=== PATIENT | female | born 1940 | race Caucasian/White ===

== ENCOUNTER 2019-11-15 14:24 | Outpatient (CLI) | payer MEDICARE, SELFPAY ==
--- NOTE | ~2019-11-15 | XR_ITS ---
EXAMINATION: XR knee LT 2V DATE: 11/15/2019 15:10 INDICATION: Left knee pain. TECHNIQUE: 2 views of left knee were obtained. COMPARISON: None. FINDINGS: Bone alignment is normal. No fracture. There is moderate osteoarthritis of medial and méndez lofemoral compartments and mild osteoarthritis of lateral compartment. No knee joint effusion. IMPRESSION: 1. Moderate left knee osteoarthritis. Reviewed, dictated and finalized at location A.
--- NOTE | ~2019-11-15 | XR_ITS ---
EXAMINATION: XR lumbar spine 2-3V DATE: 11/15/2019 15:10 INDICATION: Left hip pain TECHNIQUE: Anteroposterior and lateral views of the lumbar spine, and cone-down lateral view of the l umbosacral junction were obtained. COMPARISON: CT abdomen and pelvis 02/16/2014 FINDINGS: Alignment is normal. Vertebral body heights are normal. Moderate to severe disc height loss at L3-L4 and T9-T10. Moderate disc height loss at L2-L3 and L4-L5. Mild disc height loss at T10-T11 through T1 2-L1 and at L5-S1. Moderate lower lumbar facet osteoarthritis. Sacral arches are intact. Mild left an d moderate right sacroiliac osteoarthritis. Moderate left hip osteoarthritis. Gallstone in the right upper quadrant. IMPRESSION: 1. Moderate degenerative skeletal changes in the lumbar spine, left hip and right sacroiliac joint. 2. Cholelithiasis. Reviewed, dictated and finalized at location A. IMPRESSION: 1. Moderate degenerative skeletal changes in the lumbar spine, left hip and rig ht sacroiliac joint. 2. Cholelithiasis.
--- NOTE | ~2019-11-15 | XR_ITS ---
EXAMINATION: XR hip LT 2V w AP pelvis DATE: 11/15/2019 15:10 INDICATION: Left hip pain TECHNIQUE: Anteroposterior view of the pelvis and anteroposterior, frog leg and cross-table lateral v iews of the left hip were obtained. COMPARISON: CT dated 02/16/2014 and radiographs dated 12/06/2013 FINDINGS: On the frontal image the left hip there is a sagittally oriented lucency projecting across the base o f a marginal osteophyte along the lateral rim of the left acetabulum suspicious for an age-indetermin ate minimally displaced fracture. Interval progression of moderate left hip osteoarthritis with axial predominant nonuniform joint space narrowing and with marginal osteophytes about the femoral head an d acetabulum. Mild right hip osteoarthritis. Moderate lower lumbar spondylosis. IMPRESSION: 1. Suggestion of an age-indeterminate minimally displaced fracture at the junction of the lateral rim of the left acetabulum and prominent marginal osteophytes related to moderate left hip osteoarthriti s. Reviewed, dictated and finalized at location A. IMPRESSION: 1. Suggestion of an age-indeterminate minimally displaced fracture at the junct ion of the lateral rim of the left acetabulum and prominent marginal osteophyte s related to moderate left hip osteoarthritis.
== END 2019-11-15 14:25 | disposition home or self-care (01) ==
LOC: ANHIMG 14:37
PROVIDERS: PCP Family Medicine; Visit Provider Physician Assistant
DX: M25.552 Pain in left hip (principal); M54.5 Low back pain; M25.562 Pain in left knee; K80.20 Calculus of gallbladder without cholecystitis without obstruction; M17.12 Unilateral primary osteoarthritis, left knee
CPT/HCPCS: 72100; 73502; 73560

== ENCOUNTER 2020-02-01 14:02 | Outpatient (CLI) | payer MEDICARE, SELFPAY ==
--- NOTE | 2020-02-01 15:02 | ECG_ITS ---
Measurements Intervals [place] Rate: 62 P: -14 GA: 138 QRS: -26 QRSD: 118 T: 108 QT: 454 QTc: 462 Interpretive Statements SINUS OR ECTOPIC ATRIAL RHYTHM INTRAVENTRICULAR CONDUCTION DELAY LEFT VENTRICULAR HYPERTROPHY AND ST-T CHANGE BASELINE ARTIFACT- I, II, III, AVR, AVL, AVF BORDERLINE ECG Electronically Signed On 02-01-2020 15:17:54 CDT by Jaun Champion D.O.
[2020-02-01 15:29] LABS: Basophils Percent Auto 0.2 % (0.2-1.2); Eosinophils Absolute Auto 0.3 K/mm3 (0-0.3); Eosinophils Percent Auto 2.4 % (0-4.4); Hematocrit 39.1 % (37.0-47.0); Hemoglobin 14.2 g/dL (12.0-15.0); Immature Granulocyte Absolute 0.08 K/mm3 (0.00-0.031); Immature Granulocyte Percent A 0.7 % (0-0.5); Lymphocytes Absolute Auto 2.49 K/mm3 (0.9-3.2); Lymphocytes Percent Auto 21.9 % (18.3-44.2); Mean Corpuscular HGB Conc 36.3 g/dl (32-36); Mean Corpuscular Hemoglobin 31.1 pg (26-34); Mean Corpuscular Volume 85.6 fl (80-100); Mean Platelet Volume 9.7 fl (7.4-10.4); Monocytes Absolute Auto 1.1 K/mm3 (0.1-0.6); Monocytes Percent Auto 9.7 % (2.6-8.5); Neutrophils Absolute Auto 7.4 K/mm3 (1.3-6.7); Neutrophils Percent Auto 65.1 % (45.5-73.1); Platelet Count Result 321 k/mm3 (150-375); Red Blood Count 4.57 M/mm3 (4.2-5.4); Red Cell Distribution Width 12.2 % (11.5-14.5); White Blood Count 11.4 K/mm3 (4.5-10.0)
[2020-02-01 15:58] LABS: Anion Gap 11 mmol/L (8-16); Blood Urea Nitrogen 17 mg/dL (7-17); Calcium 9.4 mg/dL (8.4-10.2); Carbon Dioxide 32 mmol/L (22-30); Chloride 82 mmol/L (98-107); Estimated Glomerular Filt Rate > 60; Glucose 148 mg/dL (65-105); Potassium 3.5 mmol/L (3.4-5.0); Sodium 125 mmol/L (137-145)
== END 2020-02-01 14:03 | disposition home or self-care (01) ==
LOC: ANHSURGERY 14:04
PROVIDERS: Anesthesiology; PCP Family Medicine; Visit Provider Orthopaedic Surgery
DX: Z01.818 Encounter for other preprocedural examination (principal); M25.552 Pain in left hip; E11.9 Type 2 diabetes mellitus without complications; I10 Essential (primary) hypertension
CPT/HCPCS: 36415; 80048; 85025; 86850; 86900; 86901; 93005

== ENCOUNTER 2020-02-03 14:18 | Outpatient (CLI) | payer MEDICARE, SELFPAY ==
[2020-02-03 15:20] LABS: White Blood Count 14.1 K/mm3 (4.5-10.0)
[2020-02-03 15:34] LABS: Albumin Level 4.5 g/dL (3.5-5.1); Sodium 124 mmol/L (137-145)
[2020-02-03 15:38] LABS: Hemoglobin A1C 6.4 % (<5.7)
[2020-02-03 15:48] LABS: Urine Cotinine NEGATIVE
== END 2020-02-03 14:19 | disposition home or self-care (01) ==
LOC: ANHSURGERY 14:20
PROVIDERS: Anesthesiology; PCP Family Medicine; Visit Provider Orthopaedic Surgery
DX: Z01.818 Encounter for other preprocedural examination (principal); E11.9 Type 2 diabetes mellitus without complications; M25.552 Pain in left hip; D72.829 Elevated white blood cell count, unspecified; E87.1 Hypo-osmolality and hyponatremia
CPT/HCPCS: 36415; 80307; 82040; 83036; 84295; 85048

== ENCOUNTER 2020-02-17 11:34 | Outpatient (CLI) | payer MEDICARE, SELFPAY ==
[2020-02-17 11:54] LABS: Basophils Percent Auto 0.4 % (0.2-1.2); Eosinophils Absolute Auto 0.2 K/mm3 (0-0.3); Eosinophils Percent Auto 2.1 % (0-4.4); Hematocrit 41.9 % (37.0-47.0); Hemoglobin 14.4 g/dL (12.0-15.0); Immature Granulocyte Absolute 0.03 K/mm3 (0.00-0.031); Immature Granulocyte Percent A 0.4 % (0-0.5); Lymphocytes Absolute Auto 1.84 K/mm3 (0.9-3.2); Lymphocytes Percent Auto 21.9 % (18.3-44.2); Mean Corpuscular HGB Conc 34.4 g/dl (32-36); Mean Corpuscular Hemoglobin 31.2 pg (26-34); Mean Corpuscular Volume 90.9 fl (80-100); Mean Platelet Volume 9.6 fl (7.4-10.4); Monocytes Absolute Auto 0.7 K/mm3 (0.1-0.6); Monocytes Percent Auto 8.8 % (2.6-8.5); Neutrophils Absolute Auto 5.6 K/mm3 (1.3-6.7); Neutrophils Percent Auto 66.4 % (45.5-73.1); Platelet Count Result 323 k/mm3 (150-375); Red Blood Count 4.61 M/mm3 (4.2-5.4); Red Cell Distribution Width 12.5 % (11.5-14.5); White Blood Count 8.4 K/mm3 (4.5-10.0)
[2020-02-17 12:06] LABS: Anion Gap 7 mmol/L (8-16); Blood Urea Nitrogen 14 mg/dL (7-17); Calcium 9.7 mg/dL (8.4-10.2); Carbon Dioxide 25 mmol/L (22-30); Chloride 101 mmol/L (98-107); Estimated Glomerular Filt Rate > 60; Glucose 135 mg/dL (65-105); Potassium 5.1 mmol/L (3.4-5.0); Sodium 133 mmol/L (137-145)
== END 2020-02-17 11:35 | disposition home or self-care (01) ==
PROVIDERS: PCP Family Medicine; Visit Provider Physician Assistant
DX: D72.829 Elevated white blood cell count, unspecified (principal); E87.1 Hypo-osmolality and hyponatremia
CPT/HCPCS: 36415; 80048; 85025

== ENCOUNTER 2020-08-21 11:42 | Outpatient (CLI) | payer MEDICARE, SELFPAY ==
[2020-08-21 13:30] LABS: Basophils Percent Auto 0.4 % (0.2-1.2); Eosinophils Absolute Auto 0.4 K/mm3 (0-0.3); Eosinophils Percent Auto 3.8 % (0-4.4); Hematocrit 43.3 % (37.0-47.0); Hemoglobin 14.7 g/dL (12.0-15.0); Immature Granulocyte Absolute 0.04 K/mm3 (0.00-0.031); Immature Granulocyte Percent A 0.4 % (0-0.5); Lymphocytes Absolute Auto 2.17 K/mm3 (0.9-3.2); Lymphocytes Percent Auto 23.8 % (18.3-44.2); Mean Corpuscular HGB Conc 33.9 g/dl (32-36); Mean Corpuscular Hemoglobin 30.5 pg (26-34); Mean Corpuscular Volume 89.8 fl (80-100); Mean Platelet Volume 9.6 fl (7.4-10.4); Monocytes Absolute Auto 0.8 K/mm3 (0.1-0.6); Monocytes Percent Auto 8.7 % (2.6-8.5); Neutrophils Absolute Auto 5.7 K/mm3 (1.3-6.7); Neutrophils Percent Auto 62.9 % (45.5-73.1); Platelet Count Result 325 k/mm3 (150-375); Red Blood Count 4.82 M/mm3 (4.2-5.4); White Blood Count 9.1 K/mm3 (4.5-10.0)
[2020-08-21 13:36] LABS: Urine Cotinine NEGATIVE
[2020-08-21 13:39] LABS: Albumin Level 4.5 g/dL (3.5-5.1)
[2020-08-21 13:42] LABS: Anion Gap 6 mmol/L (8-16); Blood Urea Nitrogen 17 mg/dL (7-17); Calcium 9.7 mg/dL (8.4-10.2); Carbon Dioxide 28 mmol/L (22-30); Chloride 101 mmol/L (98-107); Estimated Glomerular Filt Rate > 60; Glucose 141 mg/dL (65-105); Hemoglobin A1C 6.1 % (<5.7); Potassium 5.2 mmol/L (3.4-5.0); Sodium 135 mmol/L (137-145)
== END 2020-08-21 11:43 | disposition home or self-care (01) ==
LOC: ANHSURGERY 11:44
PROVIDERS: Anesthesiology; PCP Family Medicine; Visit Provider Orthopaedic Surgery
DX: Z01.818 Encounter for other preprocedural examination (principal); M16.12 Unilateral primary osteoarthritis, left hip; I11.9 Hypertensive heart disease without heart failure
CPT/HCPCS: 80048; 80307; 82040; 83036; 85025; 86850; 86900; 86901

== ENCOUNTER → 2020-08-26 02:09 | Outpatient (CLI) | payer MEDICARE, SELFPAY ==
[2020-08-26 20:23] LABS: SARS-CoV-2 RNA PCR Negative
== END ==
PROVIDERS: PCP Family Medicine; Visit Provider Orthopaedic Surgery
DX: Z01.812 Encounter for preprocedural laboratory examination (principal); Z20.822 Contact with and (suspected) exposure to COVID-19
CPT/HCPCS: C9803; U0003; U0005

== ENCOUNTER 2020-08-31 14:43 | Observation (INO) | payer MEDICARE, SELFPAY ==
[2020-02-01 14:11] VITALS: BP 165/68; PULSE 67; RESP 18; TEMP 36.4; O2SAT 98; BMI 37.8
[2020-08-21 12:04] VITALS: BMI 37.3
[2020-08-21 13:03] VITALS: BP 171/59; PULSE 55; RESP 16; TEMP 36.7; O2SAT 100
--- NOTE | 2020-08-28 14:34 | PM.IMHP ---
H&P: HPI History of Present Illness Date/Time: 08/28/20 14:34 the patient is a 79-year-old female who sees Dr. Suggs regarding her left hip. The patient has a chronic ongoing history of pain localized to the groin this is due to primary osteoarthritis. She has pain with ambulation started pain wrist pain and night pain. Patient cannot stand or walk for long periods notes limitation of motion and pain with motion with her left hip. She has pain in the groin that radiates into her thigh worse with activities somewhat relieved by rest. 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 X-rays this time show advanced primary osteoarthritis in the left hip joint. The patient has discussed further treatment options in detail with Dr. Suggs she would now like to proceed with a left total hip arthroplasty. Chief Complaint: Advanced primary osteoarthritis left hip with left hip pain Review of Systems Review of Systems: All systems reviewed & are unremarkable except as noted in HPI and below PMFSH Past Medical History Medical History Dry ARMD Hyperkalemia Hypertensive heart disease Left hip pain Left knee pain Nuclear cataract of both eyes Type 2 diabetes mellitus with retinopathy Family History Family History Mother Family history of diabetes mellitus in first degree relative Father Family history of coronary artery disease Social History Social History Smoking status: Never smoker Second hand tobacco smoke exposure: Yes Additional smoking assessment comments: DENIES ANY FORM OF TOBACCO USE Alcohol intake: never Substance use: never Substance use type: does not use Gender identity (if verbalized by the patient): Female Spiritual care concerns: No Meds Home Medications and Allergies Home Medications Medication Instructions Recorded Confirmed Type aspirin 81 mg tablet,delayed 81 mg PO QPM 04/15/19 08/23/20 History release glucosamine-chondroitin 250 mg-200 2 tablet PO BID 04/15/19 08/23/20 History mg tablet metoprolol tartrate 25 mg tablet 25 mg PO BID tablet 04/15/19 08/23/20 History omeprazole magnesium 20 mg 20 mg PO DAILY 04/15/19 08/23/20 History tablet,delayed release vit C-vit X-iwhetb-hopz-lutein 1 cap PO DAILY 02/01/20 08/23/20 History [PreserVision Lutein] metformin 500 mg tablet,extended 1,000 mg PO DAILY #180 tablet 03/14/20 08/23/20 Rx release 24 hr losartan 100 mg tablet 100 mg PO DAILY #90 tablet 04/19/20 08/23/20 Rx sitagliptin 50 mg tablet 50 mg PO DAILY #30 tablet 05/30/20 08/23/20 Rx blood sugar diagnostic #100 ea 06/09/20 08/23/20 Rx amlodipine 10 mg tablet 10 mg PO DAILY #90 tablet 07/18/20 08/23/20 Rx atorvastatin 10 mg tablet See Rx Instructions .ROUTE 07/18/20 08/23/20 Rx .COMPLEX #90 tablet cholecalciferol (vitamin D3) 25 mcg PO DAILY 08/21/20 08/23/20 History naproxen sodium [Aleve] 440 mg PO PRN PRN 08/21/20 08/23/20 History Allergies Allergy/AdvReac Type Severity Reaction Status Date / Time codeine Allergy Severe Abdominal Verified 08/23/20 13:16 Pain Iodinated Contrast Media Allergy Severe Itching Verified 08/23/20 13:16 folic acid Allergy Mild Nausea and Verified 08/23/20 13:16 Vomiting bumetanide Allergy Unknown Nausea and Verified 08/23/20 13:16 Vomiting carvedilol Allergy Unknown Nausea and Verified 08/23/20 13:16 Vomiting chlorthalidone Allergy Unknown Nausea Verified 08/23/20 13:16 esomeprazole Allergy Unknown Nausea and Verified 08/23/20 13:16 Vomiting estrogens, conjugated Allergy Unknown Nausea and Verified 08/23/20 13:16 Vomiting fexofenadine Allergy Unknown Nausea and Verified 08/23/20 13:16 Vomiting hydrochlorothiazide Allergy Unknown Nausea and Verified 08/23/20 13:16 Vom
[2020-08-30] VITALS (17 sets, daily range): BP systolic 113–147; BP diastolic 44–73; PULSE 51–76; RESP 12–21; TEMP 35.9–36.6; O2SAT 94–99
[2020-08-30] MEDS: ACETAMINOPHEN 500 MG TABLET 1000 MG PO (06:27)
[2020-08-30 06:48] LABS: Glucose Point of Care 167 (65-105)
[2020-08-30] MEDS: TRANEXAMIC ACID 1,000MG/ISO100 1,000 MG/100 ML BAG 200 MG IVPB (06:55)
--- NOTE | 2020-08-30 07:02 | WPDANESEPPF ---
Anes - Initial Pre Proc Eval Procedure: Operation Date: 08/30/20 07:30 Proposed Procedures p Left Total Hip Arthroplasty - Johnnie Suggs MD Date/Time: 08/30/20 07:02 Surgeon: Johnnie Suggs MD Pre Op Diagnosis: OA Left hip Patient Data Age: 79 Gender: F Height: 4 ft 11 in Weight: 84.4 kg Last Vital Signs Temp 36.3 C L 08/30/20 06:48 Pulse 51 L 08/30/20 06:48 Resp 16 08/30/20 06:48 BP 143/59 H 08/30/20 06:48 Pulse Ox 97 08/30/20 06:48 Allergies Allergy/AdvReac Type Severity Reaction Status Date / Time Iodinated Contrast Media Allergy Severe Itching Verified 08/30/20 06:08 codeine AdvReac Severe Abdominal Verified 08/30/20 06:58 Pain folic acid AdvReac Mild Nausea and Verified 08/30/20 06:58 Vomiting bumetanide AdvReac Unknown Nausea and Verified 08/30/20 06:58 Vomiting carvedilol AdvReac Unknown Nausea and Verified 08/30/20 06:58 Vomiting chlorthalidone AdvReac Unknown Nausea Verified 08/30/20 06:58 empagliflozin AdvReac Unknown UTI'S Verified 08/30/20 06:08 [From Jardiance] esomeprazole AdvReac Unknown Nausea and Verified 08/30/20 06:58 Vomiting estrogens, conjugated AdvReac Unknown Nausea and Verified 08/30/20 06:58 Vomiting fexofenadine AdvReac Unknown Nausea and Verified 08/30/20 06:58 Vomiting hydrochlorothiazide AdvReac Unknown Nausea and Verified 08/30/20 06:58 Vomiting hydrocodone AdvReac Unknown Nausea and Verified 08/30/20 06:58 Vomiting indapamide AdvReac Unknown Nausea and Verified 08/30/20 06:58 Vomiting lansoprazole AdvReac Unknown Nausea and Verified 08/30/20 06:58 Vomiting lisinopril AdvReac Unknown Nausea and Verified 08/30/20 06:58 Vomiting lutein AdvReac Unknown Nausea Verified 08/30/20 06:58 medroxyprogesterone AdvReac Unknown Nausea and Verified 08/30/20 06:58 Vomiting Sulfa (Sulfonamide AdvReac Unknown Nausea and Verified 08/30/20 06:58 Antibiotics) Vomiting tramadol AdvReac Unknown Nausea and Verified 08/30/20 06:58 Vomiting triamterene AdvReac Unknown Nausea and Verified 08/30/20 06:58 Vomiting DARIFENACIN HYDROBROMIDE AdvReac Mild Nausea and Uncoded 08/30/20 06:58 Vomiting LUTEIN AdvReac Mild Nausea and Uncoded 08/30/20 06:58 Vomiting MEDROXYPROGESTERONE ACETATE AdvReac Mild Nausea and Uncoded 08/30/20 06:58 Vomiting MULTIVITAMIN W-MINERALS AdvReac Mild Nausea and Uncoded 08/30/20 06:58 Vomiting SOLIFENACIN SUCCINATE AdvReac Mild Nausea and Uncoded 08/30/20 06:58 Vomiting LYCOPENE AdvReac Unknown Nausea and Uncoded 08/30/20 06:58 Vomiting Home Medications Medication Instructions Recorded Confirmed Type aspirin 81 mg tablet,delayed 81 mg PO QPM 04/15/19 08/30/20 History release glucosamine-chondroitin 250 mg-200 2 tablet PO BID 04/15/19 08/30/20 History mg tablet metoprolol tartrate 25 mg tablet 25 mg PO BID tablet 04/15/19 08/30/20 History omeprazole magnesium 20 mg 20 mg PO DAILY 04/15/19 08/30/20 History tablet,delayed release vit C-vit Q-jwnusp-bqeq-lutein 1 cap PO DAILY 02/01/20 08/30/20 History [PreserVision Lutein] metformin 500 mg tablet,extended 1,000 mg PO DAILY #180 tablet 03/14/20 08/30/20 Rx release 24 hr losartan 100 mg tablet 100 mg PO DAILY #90 tablet 04/19/20 08/30/20 Rx sitagliptin 50 mg tablet 50 mg PO DAILY #30 tablet 05/30/20 08/30/20 Rx blood sugar diagnostic #100 ea 06/09/20 08/23/20 Rx amlodipine 10 mg tablet 10 mg PO DAILY #90 tablet 07/18/20 08/30/20 Rx atorvastatin 10 mg tablet See Rx Instructions .ROUTE 07/18/20 08/30/20 Rx .COMPLEX #90 tablet cholecalciferol (vitamin D3) 25 mcg PO DAILY 08/21/20 08/30/20 History naproxen sodium [Aleve] 440 mg PO PRN PRN 08/21/20 08/30/20 History Laboratory Tests 03/31/21 06:46 POC Capillary Glucose 167 mg/dl H mg/dl (65-105) Patient hx anesthesia problems: none Family hx anesthesia problems: none PMFSH Past Medical History Medical Hi
--- NOTE | 2020-08-30 07:14 | WPDHPUPDATE1 ---
History and Physical Update Update Date/Time: 08/30/20 07:14 History and Physical has been reviewed, including an updated exam of the patient. There are NO changes in the patient's condition. Risks, benefits, and alternatives have been discussed and questions answered. Patient agrees to proceed with procedure.
[2020-08-30] MEDS: LACTATED RINGERS 1,000 ML 30 ML IV CONT (07:22)
[2020-08-30] MEDS: ceFAZolin 2 GM/D5W 50 ML 2 GM/50 ML BAG IVPB (07:30)
--- NOTE | 2020-08-30 09:22 | P.OP_ITS ---
Procedure Note - Detailed Date of procedure: 08/30/20 Pre-op diagnosis: OA Left hip Post-op diagnosis: same Procedure performed: [Left] total hip arthroplasty Description of procedure: Patient was brought to the operating room and anesthetic was administered. The patient was placed with the [side] up and steriley prepped and draped in the usual manner. Longitudinal incision was done, dissection carried down to the fascia. A Hardinge type approach was used and the femoral head was dislocated anteriorly. Femoral head was removed a finger breath above the lesser trochanter. The acetabulum was serially reamed to accept a [48] component. This was impacted into place and secured with 2 25mm screws. A high wall liner was placed. The femur was reamed and broached to accept a [7] component which was impacted into place. A plus [3] ball and neck were placed and the hip was put through full range of motion. The hip was noted to be stable. The wounds were then closed in a layer fashion using #5 ethibond, 2 vicryl, 2-0 vicryl and manuel. Patient left the operating room in satisfactory condition. Anesthesia: GETA Surgeon: Johnnie Suggs MD [employer] Front Desk Clerk: Mich Cason Estimated blood loss (mL): 600 Drains: No Packing: No Pathology: none sent Complications: No immediate complications Condition: stable Disposition: PACU Findings: Arthritis
[2020-08-30 09:54] LABS: Glucose Point of Care 140 (65-105)
[2020-08-30] MEDS: fentaNYL CITRATE INJ (*CRX) 100 MCG/2 ML VIAL 25 MCG IV PUSH ×8 (10:04→11:10)
[2020-08-30] MEDS: ONDANSETRON INJ 4 MG/2 ML VIAL IV PUSH ×2 (11:21→18:31)
--- NOTE | 2020-08-30 11:55 | ADMGEN ---
This patient, Liliya Bernstein, was admitted to Medical Room 253-01. Patient/family oriented to hospital policies and general routines including ID bracelet, bed and alarms, visiting hours, pain management, procedures, bathroom and other care routines, personal items, smoking policy, room service/diet, and visiting hours. Information on how to activate the Rapid Response Team has been discussed. Patient/Family are encouraged to report perceived risks to care and to ask questions if they do not understand what they are told or what they should do.
[2020-08-30] MEDS: KCL 20 MEQ/D5/0.45% SOD CHL 1,000 ML 80 ML IV CONT (12:05)
[2020-08-30] MEDS: HYDROcodone/acetaminophen (*CRX) 7.5-325 MG TABLET 2 TAB PO (12:06)
[2020-08-30 12:13] LABS: Hematocrit 35.2 % (37.0-47.0); Hemoglobin 11.9 g/dL (12.0-15.0)
[2020-08-30] MEDS: DOCUSATE SODIUM 100 MG CAPSULE PO (16:11)
[2020-08-30] MEDS: RIVAROXABAN 10 MG TABLET PO (16:11)
[2020-08-30 17:51] LABS: Glucose Point of Care 231 (65-105)
[2020-08-30] MEDS: INSULIN ASPART (*BKC) 100 UNITS/ML SUB-Q (18:33)
[2020-08-30] MEDS: HYDROcodone/acetaminophen (*CRX) 7.5-325 MG TABLET 1 TAB PO (22:33)
[2020-08-31] VITALS (10 sets, daily range): BP systolic 118–155; BP diastolic 50–76; PULSE 60–86; RESP 14–24; TEMP 36.1–37; O2SAT 77–96
--- NOTE | ~2020-08-31 | XR_ITS ---
EXAMINATION: XR surgery orthopedic DATE: 08/30/2020 09:16 INDICATION: Intraoperative evaluation during left total hip arthroplasty TECHNIQUE: Frontal view of the left hip was obtained. COMPARISON: None. FINDINGS: Intraoperative image during a left total hip arthroplasty demonstrate placement of an acetabular comp onent affixed with at least 2 screws which appears in near anatomic alignment on the single image pro vided. A femoral broach is in place with the proximal tip centered over the acetabular component. Po rtions of the pelvis are obscured a bolster. No fractures in the visualized bones. IMPRESSION: 1. Expected appearance during left total hip arthroplasty. Reviewed, dictated and finalized at location A.
[2020-08-31 00:49] LABS: Glucose Point of Care 227 (65-105)
[2020-08-31] MEDS: KCL 20 MEQ/D5/0.45% SOD CHL 1,000 ML 80 ML IV CONT (01:41)
[2020-08-31 06:05] LABS: Basophils Percent Auto 0.3 % (0.2-1.2); Eosinophils Absolute Auto 0.1 K/mm3 (0-0.3); Hematocrit 33.4 % (37.0-47.0); Hemoglobin 11.4 g/dL (12.0-15.0); Immature Granulocyte Absolute 0.03 K/mm3 (0.00-0.031); Immature Granulocyte Percent A 0.3 % (0-0.5); Lymphocytes Absolute Auto 1.48 K/mm3 (0.9-3.2); Mean Corpuscular HGB Conc 34.1 g/dl (32-36); Mean Corpuscular Hemoglobin 30.6 pg (26-34); Mean Corpuscular Volume 89.8 fl (80-100); Mean Platelet Volume 9.7 fl (7.4-10.4); Monocytes Absolute Auto 1.2 K/mm3 (0.1-0.6); Monocytes Percent Auto 12.1 % (2.6-8.5); Neutrophils Percent Auto 71.3 % (45.5-73.1); Platelet Count Result 227 k/mm3 (150-375); Red Blood Count 3.72 M/mm3 (4.2-5.4); Red Cell Distribution Width 12.1 % (11.5-14.5); White Blood Count 9.9 K/mm3 (4.5-10.0)
[2020-08-31 06:19] LABS: Glucose Point of Care 161 (65-105)
[2020-08-31] MEDS: ACETAMINOPHEN 325 MG TABLET 650 MG PO (06:19)
[2020-08-31 06:25] LABS: Anion Gap 7 mmol/L (8-16); Blood Urea Nitrogen 11 mg/dL (7-17); Calcium 8.4 mg/dL (8.4-10.2); Carbon Dioxide 21 mmol/L (22-30); Chloride 102 mmol/L (98-107); Estimated Glomerular Filt Rate > 60; Glucose 150 mg/dL (65-105); Potassium 4.6 mmol/L (3.4-5.0); Sodium 130 mmol/L (137-145)
--- NOTE | 2020-08-31 07:36 | WPDANESPN ---
Anes - Prog Note Post-Op Date/Time: 08/31/20 07:36 Cardiovascular status: normal Respiratory status: normal Airway patency: baseline Mental status: baseline Post-Op hydration status: normal Vital Signs: Last Vital Signs Temp 36.6 C 08/31/20 06:00 Pulse 62 08/31/20 06:00 Resp 14 08/31/20 06:00 BP 123/50 L 08/31/20 06:00 Pulse Ox 95 08/31/20 06:00 Pain Score (VAS): 0 I/O: Intake & Output 08/30/20 08/30/20 08/31/20 15:59 23:59 07:59 Intake Total 728 047 4300 Output Total 1000 Balance 790 500 300 Laboratory Tests 08/31/20 05:48 08/31/20 05:48 08/30/20 08/30/20 08/30/20 09:52 11:56 17:47 WBC RBC Hgb 11.9 L Hct 35.2 L MCV MCH MCHC RDW Plt Count MPV Immature Gran % (Auto) Neut % (Auto) Lymph % (Auto) Gates % (Auto) Eos % (Auto) Baso % (Auto) Lymph # (Auto) Gates # (Auto) Eos # (Auto) Baso # (Auto) Abs Immat Gran (auto) Absolute Neuts (auto) Absolute Nucleated RBC Nucleated RBC % Sodium Potassium Chloride Carbon Dioxide Anion Gap BUN Creatinine Estim Creat Clear Calc Estimated GFR Glucose POC Capillary Glucose 140 H 231 H Calcium 08/30/20 08/31/20 08/31/20 22:31 05:48 05:48 WBC 9.9 RBC 3.72 L Hgb 11.4 L Hct 33.4 L MCV 89.8 MCH 30.6 MCHC 34.1 RDW 12.1 Plt Count 227 MPV 9.7 Immature Gran % (Auto) 0.3 Neut % (Auto) 71.3 Lymph % (Auto) 15.0 L Gates % (Auto) 12.1 H Eos % (Auto) 1.0 Baso % (Auto) 0.3 Lymph # (Auto) 1.48 Gates # (Auto) 1.2 H Eos # (Auto) 0.1 Baso # (Auto) 0.0 Abs Immat Gran (auto) 0.03 Absolute Neuts (auto) 7.0 H Absolute Nucleated RBC 0.0 Nucleated RBC % 0.0 Sodium 130 L Potassium 4.6 Chloride 102 Carbon Dioxide 21 L Anion Gap 7 L BUN 11 D Creatinine 0.70 Estim Creat Clear Calc Not Reportable Estimated GFR > 60 Glucose 150 H POC Capillary Glucose 227 H Calcium 8.4 08/31/20 06:13 WBC RBC Hgb Hct MCV MCH MCHC RDW Plt Count MPV Immature Gran % (Auto) Neut % (Auto) Lymph % (Auto) Gates % (Auto) Eos % (Auto) Baso % (Auto) Lymph # (Auto) Gates # (Auto) Eos # (Auto) Baso # (Auto) Abs Immat Gran (auto) Absolute Neuts (auto) Absolute Nucleated RBC Nucleated RBC % Sodium Potassium Chloride Carbon Dioxide Anion Gap BUN Creatinine Estim Creat Clear Calc Estimated GFR Glucose POC Capillary Glucose 161 H Calcium Post-procedural complaints: none Patient Feedback: Patient satisfied with anesthetic care.
[2020-08-31 07:47] LABS: Glucose Point of Care 155 (65-105)
--- NOTE | 2020-08-31 07:56 | PM.IMCN ---
Assessment and Plan Assessment and plan (1) Status post total hip replacement, left: Code(s): Z96.642 - Presence of left artificial hip joint Status: Acute Assessment and Plan: patient is status post left hip total replacement patient needs physical therapy and occupational therapy patient will go for rehabilitation (2) Left hip pain: Code(s): M25.552 - Pain in left hip Status: Acute Assessment and Plan: is status post replacement follow Ortho recs continue to monitor pain management (3) Left knee pain: Code(s): M25.562 - Pain in left knee Status: Acute Assessment and Plan: likely secondary to DJD pain management continue to monitor (4) Hypertensive heart disease: Code(s): I11.9 - Hypertensive heart disease without heart failure Status: Acute Assessment and Plan: resume home meds continue to monitor (5) Type 2 diabetes mellitus with retinopathy: Code(s): E11.319 - Type 2 diabetes mellitus with unspecified diabetic retinopathy without macular edema Status: Acute Assessment and Plan: needs good glycemic control follow-up in the outpatient setting glycated hemoglobin quarterly (6) Type 2 diabetes mellitus without complications: Code(s): E11.9 - Type 2 diabetes mellitus without complications Status: Acute Assessment and Plan: Accu-Cheks AC and HS insulin sliding scale as needed 1800 calorie restricted (7) Mild nonproliferative diabetic retinopathy of both eyes associated with diabetes mellitus due to underlying condition: Code(s): E08.3293 - Diabetes mellitus due to underlying condition with mild nonproliferative diabetic retinopathy without macular edema, bilateral Status: Acute Assessment and Plan: continue to monitor HPI Data of Consult Consult date: 08/31/20 Requesting Physician: Johnnie Suggs MD Primary Care Provider: Mil Alejandre MD Consult Narrative Reason for consult: medical management Narrative: I am seeing Liliya Bernstein on consult she is a 79 year old female with past medical history significant for hypertension, type 2 diabetes mellitus controlled with diet and oral agents, hypertension, degenerative joint disease. Patient had a fall about a year ago with resulting fracture her left hip and dislocation she was unable to get surgery then now she is status post left total hip replacement. she states she is having a lot of pain on the knee on the left side as well when she bears weight on it and also at rest. she denies any other issues at the present no rigors, no chills, no fevers, no nausea no vomiting no diarrhea no abdominal, no chest pain no palpitations, no cough no sputum production, no polydipsia polyphagia or polyuria no heat or cold intolerance. patient states that her house is a split-level home they will be very difficult for her to ambulate with the current circumstances. Review of Systems Review of Systems: Narrative: patient is status post left total hip replacement Constitutional: Comments: no fevers, no rigors, no chills Eyes: Comments: no changes in vision ENT: Comments: no earache, no sore throat, no nasal congestion. Cardiovascular: Comments: no chest pain no palpitations no orthopnea no leg swelling Respiratory: Comments: no cough no sputum production no shortness of breath Gastrointestinal: Comments: no nausea no vomiting no abdominal pain no diarrhea Genitourinary: Comments: no pain or burning with urination Musculoskeletal: Musculoskeletal: Reports arthralgias ( left knee) Comments: status post left total hip replacement Neurologic: Comments: no sensorimotor deficit Endocrine: Comments: no polydipsia polyphasia polyuria no heat or cold intolerance Hematologic/Lymphatic: Comments: no lymphadenopathies, no no petechiae or ecchymosis [facility] Past Medical History Medical Hi
[2020-08-31] MEDS: HYDROcodone/acetaminophen (*CRX) 7.5-325 MG TABLET 2 TAB PO (09:12)
[2020-08-31] MEDS: ONDANSETRON INJ 4 MG/2 ML VIAL IV PUSH (09:12)
[2020-08-31] MEDS: METOPROLOL TARTRATE 25 MG TABLET PO ×2 (10:23→20:13)
[2020-08-31] MEDS: LOSARTAN POTASSIUM 100 MG TABLET PO (10:23)
[2020-08-31] MEDS: amLODIPine BESYLATE 5 MG TABLET 10 MG PO (10:24)
[2020-08-31] MEDS: CELECOXIB 200 MG CAPSULE PO (10:24)
[2020-08-31] MEDS: DOCUSATE SODIUM 100 MG CAPSULE PO ×2 (10:24→16:46)
[2020-08-31 11:08] LABS: Glucose Point of Care 232 (65-105)
[2020-08-31] MEDS: INSULIN ASPART (*BKC) 100 UNITS/ML SUB-Q (11:29)
--- NOTE | 2020-08-31 14:16 | PC.NURSE ---
On 08/31/20, the student, [Marielos Raymundo ], provided care and completed [facility] documentation on this patient. I have reviewed the student's documentation and agree with the findings.
--- NOTE | 2020-08-31 15:27 | PM.PNORT ---
Progress Note: A&P Additional Plan patient is postop day 1 status post total hip arthroplasty. Doing better with her nausea, no other significant complaints. The patient's home situation involves too many stairs for her to go home right away, rehab evaluation will be necessary for placement for now. When there is a bed available we will get her transferred to rehab to work on ambulation and stair climbing that will be necessary for discharge to home. The patient voiced understanding agrees above plan hopefully will get her discharged tomorrow. Time Spent With Patient Time with patient: less than 15 minutes Subjective Subjective Date/Time Seen: 08/31/20 15:27 The patient is postop day 1 status post total hip arthroplasty. Had some nausea and vomiting this morning this seems to have been calm down with fluids medication and time. The patient tolerated physical therapy fairly well today but was a bit delayed in her recovery due to feeling nauseated. She denies any other significant complaints. Pain is fairly well controlled. Review of Systems Review of Systems: All systems reviewed & are unremarkable except as noted in HPI and below Exam Narrative: Exam Narrative: Patient is a well-developed well-nourished female no acute distress. She is alert oriented x3. Normal mood and affect. Hip wound clean and dry dressing is intact. Neurovascular she is intact. Calves are benign. Vital signs are stable afebrile Objective Data Vital Signs Vital Signs: Vital Signs - 24 hr 08/30/20 18:00 08/30/20 22:00 08/30/20 22:55 Temperature 35.9 C L 36.6 C Pulse Rate 64 76 62 Respiratory Rate 18 16 Blood Pressure 113/53 L 134/73 Pulse Oximetry 95 94 95 08/31/20 02:00 08/31/20 06:00 08/31/20 10:00 Temperature 37.0 C 36.6 C 36.3 C L Pulse Rate 86 62 66 Respiratory Rate 16 14 14 Blood Pressure 143/52 H 123/50 L 143/53 H Pulse Oximetry 96 95 95 08/31/20 10:23 08/31/20 14:06 Temperature 36.5 C Pulse Rate 66 60 Respiratory Rate 16 Blood Pressure 142/76 H Pulse Oximetry 96 Intake/Output Intake/Output: Intake & Output 08/28/20 08/29/20 08/30/20 08/31/20 23:59 23:59 23:59 23:59 Intake Total 1640 2770 Output Total 1000 Balance 1640 1770 Meds/Results Medications: Active Medications Generic Name Dose Route Start Last Admin Trade Name Hollis PRN Reason Stop Dose Admin Acetaminophen 650 mg 08/30/20 11:49 08/31/20 06:19 Acetaminophen 325 Mg Tablet PO 650 mg Q6H PRN Administration Mild Pain (1-3) or Fever Hydrocodone Bitart/Acetaminophen 1 tab 08/30/20 11:49 08/30/20 22:33 Hydrocodone/Acetaminophen (*Crx) 7.5-325 Mg Tablet PO 1 tab Q3H PRN Administration Pain Rated 4-6 Hydrocodone Bitart/Acetaminophen 2 tab 08/30/20 11:49 08/31/20 09:12 Hydrocodone/Acetaminophen (*Crx) 7.5-325 Mg Tablet PO 2 tab Q6H PRN Administration Pain Rated 7-10 Amlodipine Besylate 10 mg 08/31/20 09:00 08/31/20 10:24 Amlodipine Besylate 5 Mg Tablet PO 10 mg DAILY OLIVIA Administration Celecoxib 200 mg 08/31/20 09:00 08/31/20 10:24 Celecoxib 200 Mg Capsule PO 200 mg DAILY OLIVIA Administration Dextrose 12.5 gm 08/30/20 18:10 Dextrose 50% 25 Gm/50 Ml Syringe IV PUSH PRN PRN Hypoglycemia Protocol Docusate Sodium 100 mg 08/30/20 17:00 08/31/20 10:24 Docusate Sodium 100 Mg Capsule PO 100 mg BID OLIVIA Administration Glucagon 1 mg 08/30/20 18:10 Glucagon For Inj 1 Mg Vial IM PRN PRN Hypoglycemia Protocol Glucose 15 gm 08/30/20 18:10 Glucose Oral Gel 15 Gm Of Glucse In 37.5 Gm Tube PO PRN PRN Hypoglycemia Protocol Dextrose 1,000 mls @ 100 mls/hr 08/30/20 18:10 Dextrose 5% 1,000 Ml IVPB PRN PRN Hypoglycemia Protocol Insulin Aspart 2 - 5 units 08/30/20 18:23 08/31/20 11:29 Insulin Aspart (*Bkc) 100 Units/Ml SUB-Q 2 units TIDWM OLIVIA Administration Protocol Yosi
[2020-08-31] MEDS: RIVAROXABAN 10 MG TABLET PO (16:46)
[2020-08-31 16:57] LABS: Glucose Point of Care 177 (65-105)
[2020-08-31 20:36] LABS: Glucose Point of Care 168 (65-105)
[2020-09-01] VITALS: BP 150/58; PULSE 73; RESP 18; TEMP 36.4; O2SAT 95
[2020-09-01] MEDS: ACETAMINOPHEN 325 MG TABLET 650 MG PO (08:22)
[2020-09-01] MEDS: amLODIPine BESYLATE 5 MG TABLET 10 MG PO (08:27)
[2020-09-01 08:28] VITALS: PULSE 89
[2020-09-01] MEDS: METOPROLOL TARTRATE 25 MG TABLET PO (08:28)
[2020-09-01] MEDS: DOCUSATE SODIUM 100 MG CAPSULE PO ×2 (08:28→17:11)
[2020-09-01] MEDS: CELECOXIB 200 MG CAPSULE PO (08:28)
[2020-09-01] MEDS: LOSARTAN POTASSIUM 100 MG TABLET PO (08:28)
[2020-09-01 10:00] VITALS: BP 141/55; PULSE 76; RESP 18; TEMP 36.4; O2SAT 98
--- NOTE | 2020-09-01 10:15 | PM.PNORT ---
Progress Note: A&P Additional Plan Discharged to [facility] today, patient will follow up as an outpatient 2 weeks for staple removal and wound recheck. I discussed the postoperative course in detail with the patient today she voiced understanding and agrees with above plan, she will call the office for any problems difficulties or questions. See discharge orders. Time Spent With Patient Time with patient: less than 15 minutes Subjective Subjective Date/Time Seen: 09/01/20 10:15 Patient is doing well status post left total hip arthroplasty postop day 2. No complaints today. Tolerating p.o. well. Was up ambulating independently for short distances in therapy today, and did well, is ready for discharge to [facility]. Review of Systems Review of Systems: All systems reviewed & are unremarkable except as noted in HPI and below Exam Narrative: Exam Narrative: Patient is a well-developed well-nourished female no acute distress. She is alert oriented x3. Normal mood and affect. Left hip wound clean and dry dressing is intact. Neurovascularly she is intact. No significant swelling is noted. Calves are benign. Patient ambulated well for short distances in physical therapy today. Objective Data Vital Signs Vital Signs: Vital Signs - 24 hr 08/31/20 10:23 08/31/20 14:06 08/31/20 18:24 Temperature 36.5 C 36.1 C L Pulse Rate 66 60 77 Respiratory Rate 16 24 H Blood Pressure 142/76 H 118/70 Pulse Oximetry 96 77 L 08/31/20 20:00 08/31/20 20:13 08/31/20 21:38 Temperature 36.9 C Pulse Rate 63 77 63 Respiratory Rate 18 18 Blood Pressure 155/66 H Pulse Oximetry 96 96 08/31/20 21:58 09/01/20 00:00 09/01/20 08:28 Temperature 36.4 C Pulse Rate 73 89 Respiratory Rate 18 Blood Pressure 150/58 H Pulse Oximetry 96 95 Intake/Output Intake/Output: Intake & Output 08/29/20 08/30/20 08/31/20 09/01/20 23:59 23:59 23:59 23:59 Intake Total 1640 3010 200 Output Total 2000 2900 Balance 1640 1010 -2700 Meds/Results Medications: Active Medications Generic Name Dose Route Start Last Admin Trade Name Freq PRN Reason Stop Dose Admin Acetaminophen 650 mg 08/30/20 11:49 09/01/20 08:22 Acetaminophen 325 Mg Tablet PO 650 mg Q6H PRN Administration Mild Pain (1-3) or Fever Hydrocodone Bitart/Acetaminophen 1 tab 08/30/20 11:49 08/30/20 22:33 Hydrocodone/Acetaminophen (*Crx) 7.5-325 Mg Tablet PO 1 tab Q3H PRN Administration Pain Rated 4-6 Hydrocodone Bitart/Acetaminophen 2 tab 08/30/20 11:49 08/31/20 09:12 Hydrocodone/Acetaminophen (*Crx) 7.5-325 Mg Tablet PO 2 tab Q6H PRN Administration Pain Rated 7-10 Amlodipine Besylate 10 mg 08/31/20 09:00 09/01/20 08:27 Amlodipine Besylate 5 Mg Tablet PO 10 mg DAILY OLIVIA Administration Celecoxib 200 mg 08/31/20 09:00 09/01/20 08:28 Celecoxib 200 Mg Capsule PO 200 mg DAILY OLIVIA Administration Dextrose 12.5 gm 08/30/20 18:10 Dextrose 50% 25 Gm/50 Ml Syringe IV PUSH PRN PRN Hypoglycemia Protocol Docusate Sodium 100 mg 08/30/20 17:00 09/01/20 08:28 Docusate Sodium 100 Mg Capsule PO 100 mg BID OLIVIA Administration Glucagon 1 mg 08/30/20 18:10 Glucagon For Inj 1 Mg Vial IM PRN PRN Hypoglycemia Protocol Glucose 15 gm 08/30/20 18:10 Glucose Oral Gel 15 Gm Of Glucse In 37.5 Gm Tube PO PRN PRN Hypoglycemia Protocol Dextrose 1,000 mls @ 100 mls/hr 08/30/20 18:10 Dextrose 5% 1,000 Ml IVPB PRN PRN Hypoglycemia Protocol Insulin Aspart 2 - 5 units 08/30/20 18:23 09/01/20 08:26 Insulin Aspart (*Bkc) 100 Units/Ml SUB-Q Not Given TIDWM [facility] Protocol Losartan Potassium 100 mg 08/31/20 09:00 09/01/20 08:28 Losartan Potassium 100 Mg Tablet PO 100 mg DAILY OLIVIA Administration Magnesium Hydroxide 30 ml 08/30/20 11:49 Magnesium Hydroxide Susp 30 Ml Udc PO BID PRN Constipat
--- NOTE | 2020-09-01 10:36 | PM.DS ---
DS: Admitting Diagnosis Admitting Diagnosis Admitting Diagnosis: Severe primary osteoarthritis left hip joint Discharge diagnosis severe primary osteoarthritis left hip joint status post total hip arthroplasty DS: Summary Hospital Course Hospital Course: Patient was admitted for left total hip arthroplasty on August 30, 2020 underwent a left total hip arthroplasty per Dr. Suggs. Postop day 1 the patient was having some mild nausea vomiting and some pain control issues. Medications were adjusted fluids were given patient did much better. Going slowly in physical therapy. Postop day 2 deemed stable for discharge to [facility], the patient was otherwise stable. Time Spent with Patient Time attestation: Total time spent providing and/or coordinating discharge services: Exam Narrative: Exam Narrative: Well-developed well-nourished female in no acute distress status post left total hip arthroplasty postop day 2 doing well. Vital signs are stable she is afebrile and neurovascularly she is intact wound is clean and dry calves are benign tolerating physical therapy well up ambulating independently with a walker. DS: Data Data Completed and Pending Labs on day of discharge: Labs from last 24 hours 08/31/20 08/31/20 08/31/20 20:15 16:43 11:55 POC Capillary Glucose 168 H 177 H SARS-CoV-2 RNA (RT-PCR) Pending 08/31/20 11:01 POC Capillary Glucose 232 H SARS-CoV-2 RNA (RT-PCR) Discharge Plan Discharge Attending physician on discharge: Johnnie Suggs Consulting providers: Gala Carrion Discharging Clinician: Mich Cason Anticipated Discharge Date/Time: 09/01/20 13:00 Patient Disposition: SNF Activity: no shower and follow weight bearing status Diet: as tolerated Wound Care Instructions: change dressing daily Discharge Instructions: Patient is discharged to [facility], she will be up ambulating independently with a walker touchdown weight-bearing left lower extremity in physical therapy for total hip protocol. Follow hip precautions. Change dressing daily keep the wound clean and dry water evidence of drainage or infection. The patient will be discharged on Xarelto 10 mg daily for total postop course of 3 weeks when this is complete sugar aspirin 325 mg b.i.d. x1 month. Patient will be also discharged with [place] 7 5 mg 1 tablet p.o. q.4 hours p.r.n. pain. Resume home meds. Patient will follow up at 2 weeks postop for staple removal and wound recheck. Call the office immediately [phone] for any problems difficulties or questions regarding the postoperative course. Patient Instructions: Rivaroxaban (By mouth), Pain Management in Older Adults (DC) Stand Alone Forms: General Discharge Information, General Discharge Instructions Follow-up/Referrals: Johnnie Suggs MD [Physician] - (Postoperative appointment has already been made at [address] Suggs) Discharge Medications: New hydrocodone-acetaminophen 7.5-325 mg Tablet 1 tablet PO Q3H PRN (Reason: Pain Rated 4-6) Qty: 50 RF: 0 Xarelto 10 mg Tablet 10 mg PO DAILY@1700 Qty: 20 RF: 0 Continued losartan 100 mg tablet 100 mg PO DAILY Qty: 90 RF: 3 metoprolol tartrate 25 mg tablet 25 mg PO BID RF: 0 Prilosec OTC 20 mg tablet,delayed release (DR/EC) 20 mg PO DAILY RF: 0 glucosamine-chondroitin [Osteo Bi-Flex] 250-200 mg tablet 2 tablet PO BID RF: 0 PreserVision Lutein 226 mg-200 unit -5 mg-0.8 mg Capsule 1 cap PO DAILY RF: 0 cholecalciferol (vitamin D3) 25 mcg (1,000 unit) Tablet 25 mcg PO DAILY RF: 0 metformin 500 mg tablet extended release 24 hr 1,000 mg PO DAILY Qty: 180 RF: 2 Januvia 50 mg tablet 50 mg PO DAILY Qty: 30 RF: 2 (DME) OneTouch Ultra Blue Test Strip Strip See Rx Instructions .ROUTE .MEDSUPPLY Qty: 100 RF: 4 atorvastatin 10 mg tablet See Rx Instructions .ROUTE .COMPLEX Qty: 9
[2020-09-01 12:19] LABS: Glucose Point of Care 174 (65-105)
[2020-09-01 12:51] LABS: Glucose Point of Care 203 (65-105)
[2020-09-01] MEDS: INSULIN ASPART (*BKC) 100 UNITS/ML SUB-Q (13:04)
[2020-09-01 14:00] VITALS: BP 141/84; PULSE 73; RESP 14; TEMP 35.8; O2SAT 97
[2020-09-01 17:03] LABS: Glucose Point of Care 137 (65-105)
[2020-09-01] MEDS: RIVAROXABAN 10 MG TABLET PO (17:11)
[2020-09-01 19:22] LABS: SARS-CoV-2 RNA PCR Negative
== END 2020-09-01 17:38 ==
LOC: ANHSURGERY 14:46 → ANH2MED 14:47
PROVIDERS: Internal Medicine; Admitting Provider Orthopaedic Surgery; PCP Family Medicine; Visit Provider Orthopaedic Surgery
PROC: (CPT 27130; principal; 2020-08-30 07:30)
DX: M16.12 Unilateral primary osteoarthritis, left hip (principal); G89.18 Other acute postprocedural pain; R11.2 Nausea with vomiting, unspecified; I11.9 Hypertensive heart disease without heart failure; I25.10 Atherosclerotic heart disease of native coronary artery without angina pectoris; M25.562 Pain in left knee; E78.00 Pure hypercholesterolemia, unspecified; E11.319 Type 2 diabetes mellitus with unspecified diabetic retinopathy without macular edema; H25.13 Age-related nuclear cataract, bilateral; Z79.82 Long term (current) use of aspirin; Z79.84 Long term (current) use of oral hypoglycemic drugs; E66.9 Obesity, unspecified; Z68.37 Body mass index [BMI] 37.0-37.9, adult; Z20.822 Contact with and (suspected) exposure to COVID-19
CPT/HCPCS: 27130; 36415; 80048; 80307; 82040; 82948; 83036; 85014; 85018; 85025; 86850; 86900; 86901; 97110; 97116; 97161; 97165; 97530; 97535; A9270; C1776; C9290; C9803; G0378; G0379; J0171; J0690; J1815; J1885; J2405; J2704; J2795; J3010; J3370; J3480; J7120; U0003; U0005

== ENCOUNTER 2021-03-22 18:43 | Emergency (ER) | payer MEDICARE, SELFPAY ==
--- NOTE | ~2021-03-22 | XR_ITS ---
EXAMINATION: XR chest 2V DATE: 03/22/2021 19:06 INDICATION: Cough TECHNIQUE: PA and lateral views of the chest are obtained. COMPARISON: 04/21/2018; CT, 02/16/2014 FINDINGS: The lungs are free of acute opacities. There is a stable 8 mm nodule in the right middle lo be, consistent with old granulomatous disease. There is no pleural effusion or pneumothorax. The card iomediastinal silhouette is normal. There is moderate thoracic spondylosis. IMPRESSION: 1. No acute cardiopulmonary abnormality. Reviewed, dictated and finalized at location A.
[2021-03-22 18:48] VITALS: BP 158/72; PULSE 62; RESP 24; TEMP 36.6; O2SAT 100
--- NOTE | 2021-03-22 18:51 | ED.URI ---
HPI - URI/Sore Throat General Chief Complaint: Upper Respiratory Infection Stated Complaint: cough Time Seen by Provider: 03/22/21 18:50 Source: patient, RN notes reviewed and old records reviewed Mode of arrival: ambulatory Limitations: no limitations History of Present Illness HPI Narrative: 80-year-old female presents to the [facility] with complaints of a cough for 3 weeks. Has tried drinking water and taking sinus/allergy medication with no relief. Has not tried calling her primary care provider. Patient reports a history of high blood pressure, high cholesterol, vitamin deficiency type 2 diabetes. Denies any chest pain or abdominal pain. Denies shortness of breath MD elicited complaint: cough Related Data Home Medications Medication Instructions Recorded Confirmed glucosamine-chondroitin 250 mg-200 2 tablet PO BID 04/15/19 03/22/21 mg tablet metoprolol tartrate 25 mg tablet 25 mg PO BID tablet 04/15/19 03/22/21 omeprazole magnesium 20 mg 20 mg PO DAILY 04/15/19 03/22/21 tablet,delayed release PreserVision Lutein 1 cap PO DAILY 02/01/20 03/22/21 cholecalciferol (vitamin D3) 25 mcg PO DAILY 08/21/20 03/22/21 Allergies Allergy/AdvReac Type Severity Reaction Status Date / Time Iodinated Contrast Media Allergy Severe Itching Verified 03/22/21 18:50 lutein Allergy Unknown Nausea,Nausea Unverified 03/22/21 18:50 and Vomiting codeine AdvReac Severe Abdominal Verified 03/22/21 18:50 Pain folic acid AdvReac Mild Nausea and Verified 03/22/21 18:50 Vomiting bumetanide AdvReac Unknown Nausea and Verified 03/22/21 18:50 Vomiting carvedilol AdvReac Unknown Nausea and Verified 03/22/21 18:50 Vomiting chlorthalidone AdvReac Unknown Nausea Verified 03/22/21 18:50 empagliflozin AdvReac Unknown UTI'S Verified 03/22/21 18:50 [From Jardiance] esomeprazole AdvReac Unknown Nausea and Verified 03/22/21 18:50 Vomiting estrogens, conjugated AdvReac Unknown Nausea and Verified 03/22/21 18:50 Vomiting fexofenadine AdvReac Unknown Nausea and Verified 03/22/21 18:50 Vomiting hydrochlorothiazide AdvReac Unknown Nausea and Verified 03/22/21 18:50 Vomiting hydrocodone AdvReac Unknown Nausea and Verified 03/22/21 18:50 Vomiting indapamide AdvReac Unknown Nausea and Verified 03/22/21 18:50 Vomiting lansoprazole AdvReac Unknown Nausea and Verified 03/22/21 18:50 Vomiting lisinopril AdvReac Unknown Nausea and Verified 03/22/21 18:50 Vomiting medroxyprogesterone AdvReac Unknown Nausea and Verified 03/22/21 18:50 Vomiting Sulfa (Sulfonamide AdvReac Unknown Nausea and Verified 03/22/21 18:50 Antibiotics) Vomiting tramadol AdvReac Unknown Nausea and Verified 03/22/21 18:50 Vomiting triamterene AdvReac Unknown Nausea and Verified 03/22/21 18:50 Vomiting DARIFENACIN HYDROBROMIDE AdvReac Mild Nausea and Uncoded 03/22/21 18:50 Vomiting LUTEIN AdvReac Mild Nausea and Uncoded 03/22/21 18:50 Vomiting MEDROXYPROGESTERONE ACETATE AdvReac Mild Nausea and Uncoded 03/22/21 18:50 Vomiting MULTIVITAMIN W-MINERALS AdvReac Mild Nausea and Uncoded 03/22/21 18:50 Vomiting SOLIFENACIN SUCCINATE AdvReac Mild Nausea and Uncoded 03/22/21 18:50 Vomiting LYCOPENE AdvReac Unknown Nausea and Uncoded 03/22/21 18:50 Vomiting Review of Systems Review of Systems: All systems reviewed & are unremarkable except as noted in HPI and below Constitutional: Constitutional: Reports no additional constitutional complaints, Denies chills and Denies fever(s) Eyes: Eyes: Reports no additional eye complaints ENT: Reports system reviewed and no additional complaints, except as documented, Denies dizziness, Denies nasal congestion and Denies sore throat Cardiovascular: Cardiovascular: Reports no additional cardiovascular complaints, Denies chest pain, Denies rapid heart rate, Denies radiating jaw, neck or arm pain and Denies slow heart rate Respiratory: Respirato
== END 2021-03-22 19:30 | disposition home or self-care (01) ==
PROVIDERS: Emergency Provider Nurse Practitioner; PCP Family Medicine
DX: J40 Bronchitis, not specified as acute or chronic (principal); I25.10 Atherosclerotic heart disease of native coronary artery without angina pectoris; I10 Essential (primary) hypertension; E78.00 Pure hypercholesterolemia, unspecified; E11.319 Type 2 diabetes mellitus with unspecified diabetic retinopathy without macular edema
CPT/HCPCS: 71046; 99213; G0463

== ENCOUNTER 2021-04-23 15:01 | Emergency (ER) | payer MEDICARE, SELFPAY ==
[2021-04-23 15:12] VITALS: BP 187/78; PULSE 69; RESP 24; TEMP 36.7; O2SAT 99
[2021-04-23 15:19] VITALS: BP 187/78; PULSE 69; RESP 24; TEMP 36.7; O2SAT 99
--- NOTE | 2021-04-23 15:50 | ED.URI ---
HPI - URI/Sore Throat General Chief Complaint: Upper Respiratory Infection Stated Complaint: Cough Time Seen by Provider: 04/23/21 15:32 Source: patient and RN notes reviewed Mode of arrival: ambulatory Limitations: no limitations History of Present Illness HPI Narrative: Patient presents today with a 4-day history of dry cough. She initially started with a cough in March and was seen at [facility], diagnosed with bronchitis and placed on a Medrol Dosepak and azithromycin when her chest x-ray was negative. States her symptoms resolved and returned 4 days ago. Associated symptoms include slight runny nose. Denies sore throat, fever. She has been taking Mucinex and Flonase as well as occasional sinus medication and using a humidifier. States these interventions are not helping relieve her symptoms. Denies history of asthma or COPD. She has received a flu vaccine. MD elicited complaint: cough Related Data Home Medications Medication Instructions Recorded Confirmed glucosamine-chondroitin 250 mg-200 2 tablet PO BID 04/15/19 04/23/21 mg tablet metoprolol tartrate 25 mg tablet 25 mg PO BID tablet 04/15/19 04/23/21 omeprazole magnesium 20 mg 20 mg PO DAILY 04/15/19 04/23/21 tablet,delayed release PreserVision Lutein 1 cap PO DAILY 02/01/20 04/23/21 cholecalciferol (vitamin D3) 25 mcg PO DAILY 08/21/20 04/23/21 atorvastatin 10 mg PO DAILY 04/23/21 04/23/21 Allergies Allergy/AdvReac Type Severity Reaction Status Date / Time Iodinated Contrast Media Allergy Severe Itching Verified 03/22/21 18:50 lutein Allergy Unknown Nausea,Nausea Unverified 03/22/21 18:50 and Vomiting codeine AdvReac Severe Abdominal Verified 03/22/21 18:50 Pain folic acid AdvReac Mild Nausea and Verified 03/22/21 18:50 Vomiting bumetanide AdvReac Unknown Nausea and Verified 03/22/21 18:50 Vomiting carvedilol AdvReac Unknown Nausea and Verified 03/22/21 18:50 Vomiting chlorthalidone AdvReac Unknown Nausea Verified 03/22/21 18:50 empagliflozin AdvReac Unknown UTI'S Verified 03/22/21 18:50 [From Jardiance] esomeprazole AdvReac Unknown Nausea and Verified 03/22/21 18:50 Vomiting estrogens, conjugated AdvReac Unknown Nausea and Verified 03/22/21 18:50 Vomiting fexofenadine AdvReac Unknown Nausea and Verified 03/22/21 18:50 Vomiting hydrochlorothiazide AdvReac Unknown Nausea and Verified 03/22/21 18:50 Vomiting hydrocodone AdvReac Unknown Nausea and Verified 04/23/21 15:12 Vomiting indapamide AdvReac Unknown Nausea and Verified 04/23/21 15:12 Vomiting lansoprazole AdvReac Unknown Nausea and Verified 04/23/21 15:12 Vomiting lisinopril AdvReac Unknown Nausea and Verified 04/23/21 15:12 Vomiting medroxyprogesterone AdvReac Unknown Nausea and Verified 04/23/21 15:12 Vomiting Sulfa (Sulfonamide AdvReac Unknown Nausea and Verified 04/23/21 15:12 Antibiotics) Vomiting tramadol AdvReac Unknown Nausea and Verified 04/23/21 15:12 Vomiting triamterene AdvReac Unknown Nausea and Verified 04/23/21 15:12 Vomiting DARIFENACIN HYDROBROMIDE AdvReac Mild Nausea and Uncoded 04/23/21 15:12 Vomiting LUTEIN AdvReac Mild Nausea and Uncoded 04/23/21 15:12 Vomiting MEDROXYPROGESTERONE ACETATE AdvReac Mild Nausea and Uncoded 04/23/21 15:12 Vomiting MULTIVITAMIN W-MINERALS AdvReac Mild Nausea and Uncoded 04/23/21 15:12 Vomiting SOLIFENACIN SUCCINATE AdvReac Mild Nausea and Uncoded 04/23/21 15:12 Vomiting LYCOPENE AdvReac Unknown Nausea and Uncoded 04/23/21 15:12 Vomiting Review of Systems Review of Systems: CONSTITUTIONAL: Denies body aches, fever, chills, or sweats. EYES: Denies visual changes, redness, or discharge. ENT: Denies congestion, sore throat, or otalgia.+ Slight rhinorrhea CARDIOVASCULAR: Denies chest pain, palpitations, or edema. RESPIRATORY: Denies dyspnea.+ Cough GASTROINTESTINAL: Denies abdominal pain, nausea, vomiting, or diar
== END 2021-04-23 16:00 | disposition home or self-care (01) ==
PROVIDERS: Emergency Provider Nurse Practitioner; PCP Family Medicine
DX: J40 Bronchitis, not specified as acute or chronic (principal); I25.10 Atherosclerotic heart disease of native coronary artery without angina pectoris; I10 Essential (primary) hypertension; E78.00 Pure hypercholesterolemia, unspecified; E11.319 Type 2 diabetes mellitus with unspecified diabetic retinopathy without macular edema; H26.9 Unspecified cataract
CPT/HCPCS: 99213; G0463

== ENCOUNTER 2021-05-31 11:20 | Outpatient (CLI) | payer MEDICARE, SELFPAY ==
--- NOTE | ~2021-05-31 | XR_ITS ---
EXAMINATION: XR chest 2V EXAM DATE: 05/31/2021 11:40 INDICATION: R05.9 - Cough, unspecified. TECHNIQUE: Frontal and lateral projections of the chest obtained and reviewed. Comparison is made to prior examination from 03/22/2021. FINDINGS: Chronic right basilar granuloma or hamartoma. No confluent consolidation, pneumothorax or p leural effusion suspected. Cardiomediastinal silhouette is normal. There are no osseous abnormalities identified. IMPRESSION: No acute cardiac pulmonary findings. Reviewed, dictated and finalized at location A. [employer]
== END 2021-05-31 11:21 | disposition home or self-care (01) ==
PROVIDERS: PCP Family Medicine; Visit Provider Nurse Practitioner Family
DX: R05.9 Cough, unspecified (principal)
CPT/HCPCS: 71046

== ENCOUNTER 2021-08-27 20:02 | Observation (INO) | payer MEDICARE, SELFPAY ==
[2021-08-27] VITALS (16 sets, daily range): BP systolic 142–178; BP diastolic 75–86; PULSE 68–100; RESP 16–31; O2SAT 94–100
--- NOTE | ~2021-08-27 | XR_ITS ---
XR chest 1V portable DATE: 08/27/2021 21:34 INDICATION: Cough, shortness of breath, sinus congestion, drainage TECHNIQUE: Portable upright AP chest on 08/27/20219 hours COMPARISON: 05/31/2021 2 view chest FINDINGS: Normal heart size. No hilar or mediastinal enlargement. No pulmonary infiltrate or consolid ation, pleural effusion or pulmonary vascular congestion or pneumothorax is detected. IMPRESSION: No active cardiopulmonary disease Reviewed, dictated and finalized at location A.
--- NOTE | ~2021-08-27 | CT_ITS ---
EXAMINATION: CT sinus wo con DATE: 08/28/2021 13:42 INDICATION: Sinus drainage. Cough. TECHNIQUE: Computed tomography (CT) of the paranasal sinuses was performed without intravenous contra st. Iterative reconstruction technique was employed. The dose-length product was 287.87 mGy-cm. COMPARISON: CT sinuses 07/03/2011 FINDINGS: The frontal sinuses are hypoplastic. There is mild mucosal thickening in the anterior right ethmoid sinuses. The sphenoid and left maxillary sinuses are clear. There is mild mucosal thickening in right maxillary sinus. There is rightward deviation of the nasal septum. The ostiomeatal units ar e patent. There is pneumatization of the vertical lamina of left middle turbinate. There are likely c hanges of ocular lens replacement surgeries. IMPRESSION: 1. Mild mucosal thickening of the right anterior ethmoid and right maxillary sinuses. 2. Rightward deviation of the nasal septum. Reviewed, dictated and finalized at location A. IMPRESSION: 1. Mild mucosal thickening of the right anterior ethmoid and right maxillary si nuses. 2. Rightward deviation of the nasal septum.
--- NOTE | ~2021-08-27 | CT_ITS ---
EXAMINATION:CT diagnostic chest wo con DATE: 08/28/2021 13:43 INDICATION: Cough. TECHNIQUE: Computed tomography (CT) of the chest was performed without intravenous contrast. Automate d exposure control and iterative reconstruction technique were employed. The dose-length product (DLP ) was 351.86 mGy-cm. COMPARISON: CT abdomen and pelvis 02/16/2014 FINDINGS: Calcified pulmonary nodules and calcified hilar and mediastinal lymph nodes are consistent with old granulomatous disease. There is a 10 mm nodule in right middle lobe that measured 8 mm on . There is a 7 mm part-solid nodule in left lower lobe, stable from 02/16/2014. No pleural effu vaibhav. There is a 2.4 cm nodule in right thyroid lobe. There is left atrial enlargement of the heart. There are coronary artery calcifications. No pericardial effusion. There is a small sliding hiatal he rnia. There are gallstones in the gallbladder, which is contracted. There is severe thoracic spondylo sis. IMPRESSION: 1. 10 mm nodule in right lung middle lobe that measured 8 mm on 02/16/2014, likely benign. Consider no ncontrast chest CT in 6-12 months. 2. 2.4 cm right thyroid nodule. Consider thyroid ultrasound for risk stratification. 3. Small sliding hiatal hernia. Reviewed, dictated and finalized at location A. IMPRESSION: 1. 10 mm nodule in right lung middle lobe that measured 8 mm on 02/16/2014, like ly benign. Consider noncontrast chest CT in 6-12 months. 2. 2.4 cm right thyroid nodule. Consider thyroid ultrasound for risk stratifica tion. 3. Small sliding hiatal hernia.
--- NOTE | 2021-08-27 21:06 | ECG_ITS ---
Measurements Intervals [place] Rate: 64 P: 198 [place]: 135 QRS: -32 QRSD: 128 T: 71 QT: 407 QTc: 420 Interpretive Statements SINUS RHYTHM WITH SINUS ARRHYTHMIA MARKED LEFT AXIS DEVIATION [QRS AXIS < -30] LEFT VENTRICULAR HYPERTROPHY AND ST-T CHANGE [VOLTAGE CRITERIA PLUS ST/T ABNORMALITY] COMPARED TO ECG 02/01/2020 15:32:32 NO SIGNIFICANT CHANGE Electronically Signed On 08-28-2021 17:09:41 CDT by Jaden Hogan M.D.
[2021-08-27] MEDS: IPRATROPIUM BR 0.02% INH SOLN 0.5 MG/2.5 ML VIAL INHALATION (21:22)
[2021-08-27] MEDS: ALBUTEROL SULFATE NEB 2.5 MG/0.5 ML INH 5 MG INHALATION (21:22)
[2021-08-27 21:23] LABS: Basophils Percent Auto 0.2 % (0.2-1.2); Eosinophils Absolute Auto 0.1 K/mm3 (0-0.3); Eosinophils Percent Auto 1.4 % (0-4.4); Hematocrit 36.9 % (37.0-47.0); Hemoglobin 13.1 g/dL (12.0-15.0); Immature Granulocyte Absolute 0.02 K/mm3 (0.00-0.031); Immature Granulocyte Percent A 0.2 % (0-0.5); Lymphocytes Absolute Auto 2.16 K/mm3 (0.9-3.2); Lymphocytes Percent Auto 23.3 % (18.3-44.2); Mean Corpuscular HGB Conc 35.5 g/dl (32-36); Mean Corpuscular Hemoglobin 30.3 pg (26-34); Mean Corpuscular Volume 85.2 fl (80-100); Monocytes Absolute Auto 0.9 K/mm3 (0.1-0.6); Monocytes Percent Auto 10.1 % (2.6-8.5); Neutrophils Percent Auto 64.8 % (45.5-73.1); Platelet Count Result 303 k/mm3 (150-375); Red Blood Count 4.33 M/mm3 (4.2-5.4); Red Cell Distribution Width 12.5 % (11.5-14.5); White Blood Count 9.3 K/mm3 (4.5-10.0)
[2021-08-27 21:31] LABS: Lactic Acid Reflex 2.3 mmol/L (0.7-2.1)
[2021-08-27 21:34] LABS: Prothrombin Time 12.7 Seconds (11.1-14.7)
[2021-08-27 21:35] LABS: Partial Thromboplastin Time 27.6 SECONDS (22.3-36.8)
[2021-08-27 21:46] LABS: NT Pro B Type Natriuretic Pept 206 pg/mL (5-100); Troponin I < 0.012 ng/mL (0.000-0.034)
[2021-08-27 21:50] LABS: Alanine Aminotransferase 19 U/L (4-35); Albumin Level 4.5 g/dL (3.5-5.1); Alkaline Phosphatase 89 U/L (38-126); Anion Gap 8 mmol/L (8-16); Aspartate Amino Transferase 26 U/L (14-36); Bilirubin,Total 0.6 mg/dL (0.2-1.3); Blood Urea Nitrogen 13 mg/dL (7-17); Carbon Dioxide 26 mmol/L (22-30); Chloride 86 mmol/L (98-107); Estimated Glomerular Filt Rate > 60; Glucose 136 mg/dL (65-110); Magnesium 1.7 mg/dL (1.6-2.3); Potassium 3.8 mmol/L (3.4-5.0); Sodium 120 mmol/L (137-145)
--- NOTE | 2021-08-27 21:53 | ED.GENADULT ---
HPI - General Adult General Chief complaint: Shortness of Breath/Dyspnea Stated complaint: shortness of breath Time Seen by Provider: 08/27/21 21:00 History of Present Illness HPI narrative: Patient 80-year-old female presents emerged department with chief complaint of shortness of breath and cough. Patient states that for sometime she keeps having episodes about once a months where she starts coughing his coughing fits to the point that she almost throws up. Patient states she has been on steroids multiple times and was last treated approximately 1 month ago with a course of steroids. Patient states that there is a little bit of discomfort in her chest reports that shortness of breath is worse with exertion the patient denies abdominal pain reports that she has had some vomiting whenever she coughs and also coughs phlegm. The patient reports has been vaccinated for Covid. The patient denies history of congestive heart failure Related Data Home Medications Medication Instructions Recorded Confirmed glucosamine-chondroitin 250 mg-200 2 tablet PO BID 04/15/19 06/05/21 mg tablet metoprolol tartrate 25 mg tablet 25 mg PO BID tablet 04/15/19 06/05/21 omeprazole magnesium 20 mg 20 mg PO DAILY 04/15/19 06/05/21 tablet,delayed release PreserVision Lutein 1 cap PO DAILY 02/01/20 06/05/21 cholecalciferol (vitamin D3) 25 mcg PO DAILY 08/21/20 06/05/21 Allergies Allergy/AdvReac Type Severity Reaction Status Date / Time Iodinated Contrast Media Allergy Severe Itching Verified 08/27/21 21:05 lutein Allergy Unknown Nausea,Nausea Verified 08/27/21 21:05 and Vomiting codeine AdvReac Severe Abdominal Verified 08/27/21 21:05 Pain folic acid AdvReac Mild Nausea and Verified 08/27/21 21:05 Vomiting bumetanide AdvReac Unknown Nausea and Verified 08/27/21 21:05 Vomiting carvedilol AdvReac Unknown Nausea and Verified 08/27/21 21:05 Vomiting chlorthalidone AdvReac Unknown Nausea Verified 08/27/21 21:05 empagliflozin AdvReac Unknown UTI'S Verified 08/27/21 21:05 [From Jardiance] esomeprazole AdvReac Unknown Nausea and Verified 08/27/21 21:05 Vomiting estrogens, conjugated AdvReac Unknown Nausea and Verified 08/27/21 21:05 Vomiting fexofenadine AdvReac Unknown Nausea and Verified 08/27/21 21:05 Vomiting hydrochlorothiazide AdvReac Unknown Nausea and Verified 08/27/21 21:05 Vomiting hydrocodone AdvReac Unknown Nausea and Verified 08/27/21 21:05 Vomiting indapamide AdvReac Unknown Nausea and Verified 08/27/21 21:05 Vomiting lansoprazole AdvReac Unknown Nausea and Verified 08/27/21 21:05 Vomiting lisinopril AdvReac Unknown Nausea and Verified 08/27/21 21:05 Vomiting medroxyprogesterone AdvReac Unknown Nausea and Verified 08/27/21 21:05 Vomiting Sulfa (Sulfonamide AdvReac Unknown Nausea and Verified 08/27/21 21:05 Antibiotics) Vomiting tramadol AdvReac Unknown Nausea and Verified 08/27/21 21:05 Vomiting triamterene AdvReac Unknown Nausea and Verified 08/27/21 21:05 Vomiting DARIFENACIN HYDROBROMIDE AdvReac Mild Nausea and Uncoded 08/27/21 21:05 Vomiting LUTEIN AdvReac Mild Nausea and Uncoded 08/27/21 21:05 Vomiting MEDROXYPROGESTERONE ACETATE AdvReac Mild Nausea and Uncoded 08/27/21 21:05 Vomiting MULTIVITAMIN W-MINERALS AdvReac Mild Nausea and Uncoded 08/27/21 21:05 Vomiting SOLIFENACIN SUCCINATE AdvReac Mild Nausea and Uncoded 08/27/21 21:05 Vomiting LYCOPENE AdvReac Unknown Nausea and Uncoded 08/27/21 21:05 Vomiting Review of Systems Review of Systems: A 10 system review of systems was completed on the patient and is negative except for what is stated in the HPI. Nursing and ancillary documentation was reviewed. [facility], LAT[facility] Past Medical History Medical History Coronary artery disease involving eek coronary artery of eek heart Dry ARMD Essential hyper
[2021-08-27 21:59] LABS: Influenza A QL RT-PCR Negative (Negative); Influenza B QL RT-PCR Negative (Negative); SARS-CoV-2 RNA PCR Negative
[2021-08-27] MEDS: SODIUM CHLORIDE 0.9% IV 1,000 ML 500 ML IV CONT (22:33)
[2021-08-27 23:04] LABS: Add Urine Microscopic? YES; Appearance Urine Clear (Clear); Bilirubin Urine Negative (Negative); Blood Urine Negative (Negative); Color Urine Straw (Yellow); Glucose Urine UA Negative (Negative); Ketones Urine Negative (Negative); Leukocyte Esterase Ur 1+ LEU/UL (Negative); Nitrate Urine Negative (Negative); Protein Urine Negative (Negative); RBC Urine 0-2 /hpf (0-2); Specific Grav Ur 1.006 (1.001-1.035); Squamous Epithelial Cell Urine Few /hpf (Few); Urobilinogen Urine Negative mg/dL (<2.0)
[2021-08-28] VITALS (25 sets, daily range): BP systolic 128–153; BP diastolic 50–59; PULSE 62–109; RESP 16–28; TEMP 36.1–36.4; O2SAT 94–99; BMI 41.7
[2021-08-28 00:20] LABS: Reflex Lactic Acid Yes or No Add Lactic
--- NOTE | 2021-08-28 02:24 | ADMGEN ---
This patient, Liliya Bernstein, was admitted to [facility] Surg Room 315-02. Patient/family oriented to hospital policies and general routines including ID bracelet, bed and alarms, visiting hours, pain management, procedures, bathroom and other care routines, personal items, smoking policy, room service/diet, and visiting hours. Information on how to activate the Rapid Response Team has been discussed. Patient/Family are encouraged to report perceived risks to care and to ask questions if they do not understand what they are told or what they should do.
[2021-08-28] MEDS: ALBUTEROL SULFATE NEB 2.5 MG/0.5 ML INH 5 MG INHALATION ×2 (02:26→08:42)
[2021-08-28 03:22] LABS: Lactic Acid 2.1 mmol/L (0.7-2.1)
[2021-08-28 03:27] LABS: Anion Gap 8 mmol/L (8-16); Blood Urea Nitrogen 13 mg/dL (7-17); Calcium 8.5 mg/dL (8.4-10.2); Carbon Dioxide 20 mmol/L (22-30); Chloride 91 mmol/L (98-107); Estimated Glomerular Filt Rate > 60; Glucose 134 mg/dL (65-110); Potassium 3.7 mmol/L (3.4-5.0); Sodium 119 mmol/L (137-145)
[2021-08-28] MEDS: SODIUM CHLORIDE 0.9% IV 1,000 ML 100 ML IV CONT ×2 (03:43→14:04)
--- NOTE | 2021-08-28 05:54 | PM.IMHP ---
H&P: HPI History of Present Illness Date/Time: 08/28/21 05:54 Chief Complaint: Coughing and choking on sinus drainage Narrative: 80-year-old female with past medical history coronary artery disease, hyperlipidemia, hypertension, GERD, sinusitis and type 2 diabetes mellitus who presented to the ER with coughing and choking from sinus drainage. The patient states is been treated for bronchitis about once a month every month since March. Her primary care doctor does not want to give her any further courses of steroids as she has been on them so frequently. The patient reports that in the past she had received an albuterol inhaler once for when she had bronchitis but has not been with her recent episodes. She does think that the albuterol nebulizer she has gotten since admission have helped with her symptoms. At the time of my evaluation the patient did not cough for the 25 minutes that was in the patient's room. The patient reports that her current episode of coughing has been ongoing for about 10 days. She reports that when the symptoms started usually a mild cough in the frequency of the cough increases. Usually cough is relieved after she she takes a couple of drinks of water. Occasionally or cough will be productive of small amount of clear sputum. She does report that her symptoms are usually preceded by some sneezing and occasional nasal congestion. She denies any significant postnasal drip but does report occasional tickle down in her throat. She has not been having any fevers or chills. She occasionally will have some lower extremity swelling but no significant swelling in recent weeks. She denies any orthopnea or paroxysmal nocturnal dyspnea. She denies any specific eliciting factors for the cough. She is fully vaccinated against COVID-19 and has received her booster. She has not had any significant weight loss. She reports that the she will feel choked up from the cough at times. She will sometimes feel nauseated because she has cough so much. She reports that she drinks about 216 oz bottles of water a day tell per clear cough. This is evidently in increase in her usual water consumption. She reports a subsequent increase in her stress and urge urinary incontinence. She denies any dysuria. The patient has some Flonase at home but only uses it intermittently. She denies a history of GERD but is on omeprazole at home. She does have a history of a hiatal hernia. She reports a history of ulcers but EGD in 2013 was normal. Patient has had borderline hypotensive in a dream in the past her sodium today is lower than her baseline. The patient's repeat sodium was 119 down from 120 however her IV fluids were not infusing correctly due to arm positioning. I continue the fluids at the same rate and repeat sodium has went up to 122. 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 She is concerned that she may be developing her current symptoms from a distant history of these exposures. Review of Systems Review of Systems: 12 systems were reviewed with pertinent positives and negatives per HPI. Except as documented in the HPI, all other systems were reviewed and are negative. 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
[2021-08-28 06:30] LABS: Sodium 122 mmol/L (137-145)
[2021-08-28] MEDS: FLUTICASONE PROPIONATE 0.05% NA SPR 16 GM BTL (*BKC) 2 SPRAY NASAL ×2 (08:13→16:50)
[2021-08-28] MEDS: OPTI-GEN TAB 1 TABLET PO (08:15)
[2021-08-28] MEDS: CHOLECALCIFEROL 1,000 UNITS TABLET 1000 UNITS PO (08:15)
[2021-08-28] MEDS: LOSARTAN POTASSIUM 50 MG TABLET PO (08:16)
[2021-08-28] MEDS: PANTOPRAZOLE 40 MG TABLET PO (08:17)
[2021-08-28] MEDS: METOPROLOL TARTRATE 25 MG TABLET PO ×2 (08:17→20:15)
[2021-08-28] MEDS: amLODIPine BESYLATE 5 MG TABLET 10 MG PO (08:18)
[2021-08-28] MEDS: IPRATROPIUM BR 0.02% INH SOLN 0.5 MG/2.5 ML VIAL INHALATION (08:42)
--- NOTE | 2021-08-28 08:50 | ECG_ITS ---
Measurements Intervals [place] Rate: 62 P: 72 NE: 247 QRS: -31 QRSD: 121 T: 18 QT: 446 QTc: 453 Interpretive Statements SINUS RHYTHM WITH FIRST DEGREE AV BLOCK MARKED LEFT AXIS DEVIATION [QRS AXIS < -30] LEFT VENTRICULAR HYPERTROPHY LEFT ANTERIOR HEMIBLOCK] ABNORMAL ECG COMPARED TO ECG 08/27/2021 20:53:26 FIRST DEGREE AV BLOCK NOW PRESENT Electronically Signed On 08-28-2021 17:26:42 CDT by Jaden Hogan M.D.
--- NOTE | 2021-08-28 09:00 | P.PNIM_ITS ---
Progress Note: A&P Assessment and Plan (1) Chronic cough: Code(s): R05.3 - Chronic cough Status: Acute Assessment and Plan: * reports of sneezing and tickle in her throat * Suspect symptoms are in part due to allergic rhinitis and postnasal drip * Flonase 2 sprays each [place] BID * albuterol and Atrovent stopped these with the episode of tachycardia * Consider a rescue inhaler * pulmonology would like patient to follow up outpatient. * Continue PPI therapy to suppress acid just in case the patient GERD * CT of the sinuses Mild mucosal thickening of the right anterior ethmoid and right maxillary sinuses, Rightward deviation of the nasal septum. * CT of the chest just seen a nodule, will enlargement, will need to follow up with another ct in 6-12 months * Consider antibiotics * Probably a sinusitis will start antibiotics (2) Acute hyponatremia: Code(s): E87.1 - Hypo-osmolality and hyponatremia Status: Acute Assessment and Plan: * Na was noted to be severely low at 119 * Continue IV fluids * Trend sodium * Get urine labs * Adjust therapy as indicated * hold the patient's hydrochlorothiazide. (3) Type 2 diabetes mellitus with retinopathy: Qualifiers: Diabetes mellitus nursing home insulin use: without nursing home use Diabetic retinopathy severity: with unspecified retinopathy severity Diabetes mellitus macular edema: macular edema presence unspecified Laterality: unspecified laterality Qualified Code(s): E11.319 - Type 2 diabetes mellitus with unspecified diabetic retinopathy without macular edema Code(s): E11.319 - Type 2 diabetes mellitus with unspecified diabetic retinopathy without macular edema Status: Acute Assessment and Plan: * Current glucose is 134 * Patient has type 2 diabetes mellitus * currently euglycemic * continue patient's home metformin and Januvia * consistent carbohydrate diet * low-dose sliding scale insulin. * Accu-Cheks a.c. HS * hypoglycemia protocol * Adjust therapy as indicated (4) Hypertension: Code(s): I10 - Essential (primary) hypertension Status: Acute Assessment and Plan: * BP 128/53 * Continue home amlodipine, losartan, metoprolol * Trend BP * Adjust therapy as indicated (5) Lung nodule: Code(s): R91.1 - Solitary pulmonary nodule Status: Acute Assessment and Plan: * 10mm lung nodule noted on the ct * She will need to follow up outpatient (6) Thyroid nodule: Code(s): E04.1 - Nontoxic single thyroid nodule Status: Acute Assessment and Plan: * 2.5cm Nodule * Get a thyroid ultrasound * Will probably need to follow up outpatient (7) Sinusitis: Code(s): J32.9 - Chronic sinusitis, unspecified Status: Acute Assessment and Plan: * CT of the sinuses: Rightward deviation of the nasal septum, Mild mucosal thickening of the right anterior ethmoid and right maxillary sinuses. * Start amoxicillin PO * Trend symptoms Time Spent With Patient Time with patient: Greater than 35 minutes Subjective Date/time seen: 08/28/21 0900 Interval history: Date/Time: 08/28/21 05:54 Narrative: 80-year-old female with past medical history coronary artery disease, hyperlipidemia, hypertension, GERD, sinusitis and type 2 diabetes mellitus who presented to the ER with coughing and choking from sinus drainage. The patient states is been t
--- NOTE | 2021-08-28 09:00 | PM.IMPN ---
Progress Note: A&P Assessment and Plan (1) Chronic cough: Code(s): R05.3 - Chronic cough Status: Acute Assessment and Plan: reports of sneezing and tickle in her throat Suspect symptoms are in part due to allergic rhinitis and postnasal drip Flonase 2 sprays each [place] BID albuterol and Atrovent stopped these with the episode of tachycardia Consider a rescue inhaler pulmonology would like patient to follow up outpatient. Continue PPI therapy to suppress acid just in case the patient GERD CT of the sinuses Mild mucosal thickening of the right anterior ethmoid and right maxillary sinuses, Rightward deviation of the nasal septum. CT of the chest just seen a nodule, will enlargement, will need to follow up with another ct in 6-12 months Consider antibiotics Probably a sinusitis will start antibiotics (2) Acute hyponatremia: Code(s): E87.1 - Hypo-osmolality and hyponatremia Status: Acute Assessment and Plan: Na was noted to be severely low at 119 Continue IV fluids Trend sodium Get urine labs Adjust therapy as indicated hold the patient's hydrochlorothiazide. (3) Type 2 diabetes mellitus with retinopathy: Qualifiers: Diabetes mellitus buttermaker continuous churn insulin use: without buttermaker continuous churn use Diabetic retinopathy severity: with unspecified retinopathy severity Diabetes mellitus macular edema: macular edema presence unspecified Laterality: unspecified laterality Qualified Code(s): E11.319 - Type 2 diabetes mellitus with unspecified diabetic retinopathy without macular edema Code(s): E11.319 - Type 2 diabetes mellitus with unspecified diabetic retinopathy without macular edema Status: Acute Assessment and Plan: Current glucose is 134 Patient has type 2 diabetes mellitus currently euglycemic continue patient's home metformin and Januvia consistent carbohydrate diet low-dose sliding scale insulin. Accu-Cheks a.c. HS hypoglycemia protocol Adjust therapy as indicated (4) Hypertension: Code(s): I10 - Essential (primary) hypertension Status: Acute Assessment and Plan: BP 128/53 Continue home amlodipine, losartan, metoprolol Trend BP Adjust therapy as indicated (5) Lung nodule: Code(s): R91.1 - Solitary pulmonary nodule Status: Acute Assessment and Plan: 10mm lung nodule noted on the ct She will need to follow up outpatient (6) Thyroid nodule: Code(s): E04.1 - Nontoxic single thyroid nodule Status: Acute Assessment and Plan: 2.5cm Nodule Get a thyroid ultrasound Will probably need to follow up outpatient (7) Sinusitis: Code(s): J32.9 - Chronic sinusitis, unspecified Status: Acute Assessment and Plan: CT of the sinuses: Rightward deviation of the nasal septum, Mild mucosal thickening of the right anterior ethmoid and right maxillary sinuses. Start amoxicillin PO Trend symptoms Time Spent With Patient Time with patient: Greater than 35 minutes Subjective Date/time seen: 08/28/21 0900 Interval history: Date/Time: 08/28/21 05:54 Narrative: 80-year-old female with past medical history coronary artery disease, hyperlipidemia, hypertension, GERD, sinusitis and type 2 diabetes mellitus who presented to the ER with coughing and choking from sinus drainage. The patient states is been treated for bronchitis about once a month every month since March. Her primary care doctor does not want to give her any further courses of steroids as she has been on them so frequently. The patient reports that in the past she had received an albuterol inhaler once for when she had bronchitis but has not been with her recent episodes. She does think that the albuterol nebulizer she has gotten since admission have helped with her symptoms. At the time of my evaluation the patient did not cough for the 25 minutes that
[2021-08-28 10:06] LABS: Sodium 123 mmol/L (137-145)
[2021-08-28 12:01] LABS: Glucose Point of Care 310 mg/dl (65-105)
[2021-08-28] MEDS: INSULIN ASPART (*BKC) 100 UNITS/ML SUB-Q (12:04)
[2021-08-28 14:54] LABS: Sodium 127 mmol/L (137-145)
--- NOTE | 2021-08-28 15:13 | PC.NURSE ---
On 08/28/21, the student, Eliz Paula, provided care and completed [facility] documentation on this patient. I have reviewed the student's documentation and agree with the findings.
[2021-08-28 16:51] LABS: Glucose Point of Care 141 mg/dl (65-105)
[2021-08-28 18:35] LABS: Sodium 128 mmol/L (137-145)
[2021-08-28] MEDS: metFORMIN HCL XR 500 MG TAB.SR.24H 1000 MG PO (20:15)
[2021-08-28] MEDS: MONTELUKAST SODIUM 10 MG TABLET PO (20:16)
[2021-08-28] MEDS: ATORVASTATIN 10 MG TABLET PO (20:16)
[2021-08-28 20:24] LABS: Glucose Point of Care 180 mg/dl (65-105)
[2021-08-28 22:08] LABS: Sodium 126 mmol/L (137-145)
[2021-08-28 22:09] LABS: Glucose Point of Care 163 mg/dl (65-105)
[2021-08-29] VITALS: PULSE 72
[2021-08-29] MEDS: SODIUM CHLORIDE 0.9% IV 1,000 ML 100 ML IV CONT (01:31)
[2021-08-29 03:54] VITALS: BP 152/62; PULSE 70; RESP 18; TEMP 36.3; O2SAT 97
[2021-08-29 04:00] VITALS: PULSE 79
[2021-08-29 06:40] LABS: Basophils Percent Auto 0.4 % (0.2-1.2); Eosinophils Absolute Auto 0.3 K/mm3 (0-0.3); Eosinophils Percent Auto 3.9 % (0-4.4); Hematocrit 35.5 % (37.0-47.0); Hemoglobin 12.1 g/dL (12.0-15.0); Immature Granulocyte Absolute 0.03 K/mm3 (0.00-0.031); Immature Granulocyte Percent A 0.4 % (0-0.5); Lymphocytes Absolute Auto 1.62 K/mm3 (0.9-3.2); Lymphocytes Percent Auto 20.3 % (18.3-44.2); Mean Corpuscular HGB Conc 34.1 g/dl (32-36); Mean Corpuscular Hemoglobin 30.1 pg (26-34); Mean Corpuscular Volume 88.3 fl (80-100); Mean Platelet Volume 9.3 fl (7.4-10.4); Monocytes Percent Auto 12.3 % (2.6-8.5); Neutrophils Percent Auto 62.7 % (45.5-73.1); Platelet Count Result 271 k/mm3 (150-375); Red Blood Count 4.02 M/mm3 (4.2-5.4); Red Cell Distribution Width 13.2 % (11.5-14.5)
[2021-08-29 06:56] LABS: Alanine Aminotransferase 19 U/L (4-35); Albumin Level 3.8 g/dL (3.5-5.1); Alkaline Phosphatase 71 U/L (38-126); Anion Gap 7 mmol/L (8-16); Aspartate Amino Transferase 26 U/L (14-36); Bilirubin,Total 0.6 mg/dL (0.2-1.3); Blood Urea Nitrogen 8 mg/dL (7-17); Calcium 8.4 mg/dL (8.4-10.2); Carbon Dioxide 20 mmol/L (22-30); Chloride 104 mmol/L (98-107); Estimated Glomerular Filt Rate > 60; Glucose 133 mg/dL (65-110); Magnesium 2.1 mg/dL (1.6-2.3); Potassium 4.2 mmol/L (3.4-5.0); Sodium 131 mmol/L (137-145)
[2021-08-29 07:48] LABS: Glucose Point of Care 154 mg/dl (65-105)
[2021-08-29 08:00] VITALS: PULSE 84
[2021-08-29 08:11] LABS: Glucose Point of Care 169 mg/dl (65-105)
[2021-08-29] MEDS: CHOLECALCIFEROL 1,000 UNITS TABLET 1000 UNITS PO (08:51)
[2021-08-29] MEDS: amLODIPine BESYLATE 5 MG TABLET 10 MG PO (08:51)
[2021-08-29 08:52] VITALS: PULSE 90
[2021-08-29] MEDS: METOPROLOL TARTRATE 25 MG TABLET PO (08:52)
[2021-08-29] MEDS: OPTI-GEN TAB 1 TABLET PO (08:52)
[2021-08-29] MEDS: PANTOPRAZOLE 40 MG TABLET PO (08:52)
[2021-08-29] MEDS: FLUTICASONE PROPIONATE 0.05% NA SPR 16 GM BTL (*BKC) 2 SPRAY NASAL (08:52)
[2021-08-29] MEDS: LOSARTAN POTASSIUM 50 MG TABLET PO (08:52)
[2021-08-29 09:01] VITALS: O2SAT 95
--- NOTE | 2021-08-29 11:15 | P.DS_ITS ---
DS: Admitting Diagnosis Discharge Date 08/29/21 1115 Admitting Diagnosis Sinusitis DS: Discharge Diagnosis Discharge Diagnosis (1) Chronic cough: Code(s): R05.3 - Chronic cough Status: Acute Assessment and Plan: * reports of sneezing and tickle in her throat * Suspect symptoms are in part due to allergic rhinitis and postnasal drip * Flonase 2 sprays each [place] BID * albuterol and Atrovent stopped these with the episode of tachycardia * Consider a rescue inhaler * pulmonology would like patient to follow up outpatient. * Continue PPI therapy to suppress acid just in case the patient GERD * CT of the sinuses Mild mucosal thickening of the right anterior ethmoid and right maxillary sinuses, Rightward deviation of the nasal septum. * CT of the chest just seen a nodule, will enlargement, will need to follow up with another ct in 6-12 months * Consider antibiotics * Probably a sinusitis will start antibiotics (2) Acute hyponatremia: Code(s): E87.1 - Hypo-osmolality and hyponatremia Status: Acute Assessment and Plan: * Na was noted to be severely low at 119 * Continue IV fluids * Trend sodium * Get urine labs * Adjust therapy as indicated * hold the patient's hydrochlorothiazide. * Resolved at this time and is currently 131 (3) Type 2 diabetes mellitus with retinopathy: Qualifiers: Diabetes mellitus termite technician insulin use: without termite technician use Diabetes mellitus macular edema: macular edema presence unspecified Diabetic retinopathy severity: with unspecified retinopathy severity Laterality: unspecified laterality Qualified Code(s): E11.319 - Type 2 diabetes mellitus with unspecified diabetic retinopathy without macular edema Code(s): E11.319 - Type 2 diabetes mellitus with unspecified diabetic retinopathy without macular edema Status: Acute Assessment and Plan: * Current glucose is 133 * Patient has type 2 diabetes mellitus * currently euglycemic * continue patient's home metformin and Januvia * consistent carbohydrate diet * low-dose sliding scale insulin. * Accu-Cheks a.c. HS * hypoglycemia protocol * Adjust therapy as indicated (4) Hypertension: Code(s): I10 - Essential (primary) hypertension Status: Acute Assessment and Plan: * BP 152/62 * Continue home amlodipine, losartan, metoprolol * Trend BP * Adjust therapy as indicated (5) Lung nodule: Code(s): R91.1 - Solitary pulmonary nodule Status: Acute Assessment and Plan: * 10mm lung nodule noted on the ct * She will need to follow up outpatient (6) Thyroid nodule: Code(s): E04.1 - Nontoxic single thyroid nodule Status: Acute Assessment and Plan: * 2.5cm Nodule * Get a thyroid ultrasound * Will probably need to follow up outpatient (7) Sinusitis: Code(s): J32.9 - Chronic sinusitis, unspecified Status: Acute Assessment and Plan: * CT of the sinuses: Rightward deviation of the nasal septum, Mild mucosal thickening of the right anterior ethmoid and right maxillary sinuses. * Start amoxicillin PO for a total of 10 days * Trend symptoms DS: Summary Hospital Course Hospital Course: Patient is a 80-year-old female with a past medical history of coronary artery disease, hyperlipidemia, hypertension, GERD, sinusitis and diabetes who presented to the ED with complaints of coughing a
--- NOTE | 2021-08-29 11:15 | PM.DS ---
DS: Admitting Diagnosis Discharge Date 08/29/21 1115 Admitting Diagnosis Sinusitis DS: Discharge Diagnosis Discharge Diagnosis (1) Chronic cough: Code(s): R05.3 - Chronic cough Status: Acute Assessment and Plan: reports of sneezing and tickle in her throat Suspect symptoms are in part due to allergic rhinitis and postnasal drip Flonase 2 sprays each [place] BID albuterol and Atrovent stopped these with the episode of tachycardia Consider a rescue inhaler pulmonology would like patient to follow up outpatient. Continue PPI therapy to suppress acid just in case the patient GERD CT of the sinuses Mild mucosal thickening of the right anterior ethmoid and right maxillary sinuses, Rightward deviation of the nasal septum. CT of the chest just seen a nodule, will enlargement, will need to follow up with another ct in 6-12 months Consider antibiotics Probably a sinusitis will start antibiotics (2) Acute hyponatremia: Code(s): E87.1 - Hypo-osmolality and hyponatremia Status: Acute Assessment and Plan: Na was noted to be severely low at 119 Continue IV fluids Trend sodium Get urine labs Adjust therapy as indicated hold the patient's hydrochlorothiazide. Resolved at this time and is currently 131 (3) Type 2 diabetes mellitus with retinopathy: Qualifiers: Diabetes mellitus extermination inspector insulin use: without extermination inspector use Diabetes mellitus macular edema: macular edema presence unspecified Diabetic retinopathy severity: with unspecified retinopathy severity Laterality: unspecified laterality Qualified Code(s): E11.319 - Type 2 diabetes mellitus with unspecified diabetic retinopathy without macular edema Code(s): E11.319 - Type 2 diabetes mellitus with unspecified diabetic retinopathy without macular edema Status: Acute Assessment and Plan: Current glucose is 133 Patient has type 2 diabetes mellitus currently euglycemic continue patient's home metformin and Januvia consistent carbohydrate diet low-dose sliding scale insulin. Accu-Cheks a.c. HS hypoglycemia protocol Adjust therapy as indicated (4) Hypertension: Code(s): I10 - Essential (primary) hypertension Status: Acute Assessment and Plan: BP 152/62 Continue home amlodipine, losartan, metoprolol Trend BP Adjust therapy as indicated (5) Lung nodule: Code(s): R91.1 - Solitary pulmonary nodule Status: Acute Assessment and Plan: 10mm lung nodule noted on the ct She will need to follow up outpatient (6) Thyroid nodule: Code(s): E04.1 - Nontoxic single thyroid nodule Status: Acute Assessment and Plan: 2.5cm Nodule Get a thyroid ultrasound Will probably need to follow up outpatient (7) Sinusitis: Code(s): J32.9 - Chronic sinusitis, unspecified Status: Acute Assessment and Plan: CT of the sinuses: Rightward deviation of the nasal septum, Mild mucosal thickening of the right anterior ethmoid and right maxillary sinuses. Start amoxicillin PO for a total of 10 days Trend symptoms DS: Summary Hospital Course Hospital Course: Patient is a 80-year-old female with a past medical history of coronary artery disease, hyperlipidemia, hypertension, GERD, sinusitis and diabetes who presented to the ED with complaints of coughing and choking from sinus drainage. Patient stated that she has been treated for bronchitis about once a month since March. Patient stated that her cough will start and does not really want to she drinks water and takes a couple deep breaths. CT of the sinuses showed mucosal thickening of the right anterior ethmoid and right maxillary sinuses. CT of the chest was also performed and showed days 2.5 cm nodule in the thyroid gland along with a 10 mm nodule of left lung nodule. Pulmonology was consulted however did state that they wo
[2021-08-29 12:04] LABS: Glucose Point of Care 224 mg/dl (65-105)
[2021-08-29] MEDS: INSULIN ASPART (*BKC) 100 UNITS/ML SUB-Q (12:13)
== END 2021-08-29 13:35 | disposition home or self-care (01) ==
LOC: ANHED 21:44 → ANH3MEDSUR 08-28 10:28
PROVIDERS: Admitting Provider Internal Medicine; Emergency Provider Emergency Medicine; PCP Family Medicine; Visit Provider Nurse Practitioner
DX: E87.1 Hypo-osmolality and hyponatremia (principal); J32.9 Chronic sinusitis, unspecified; I47.1 Supraventricular tachycardia; R05.3 Chronic cough; J40 Bronchitis, not specified as acute or chronic; I25.10 Atherosclerotic heart disease of native coronary artery without angina pectoris; E04.1 Nontoxic single thyroid nodule; E78.5 Hyperlipidemia, unspecified; E11.319 Type 2 diabetes mellitus with unspecified diabetic retinopathy without macular edema; E66.9 Obesity, unspecified; H35.30 Unspecified macular degeneration; I11.9 Hypertensive heart disease without heart failure; K21.9 Gastro-esophageal reflux disease without esophagitis; R06.02 Shortness of breath; R91.1 Solitary pulmonary nodule; Z20.822 Contact with and (suspected) exposure to COVID-19; Z79.84 Long term (current) use of oral hypoglycemic drugs; Z68.41 Body mass index [BMI] 40.0-44.9, adult; Z79.899 Other long term (current) drug therapy
CPT/HCPCS: 36415; 70486; 71045; 71250; 80048; 80053; 81001; 82948; 83605; 83735; 83880; 84295; 84484; 85025; 85610; 85730; 87502; 93005; 94640; 96360; 96361; 99285; A9270; C9803; G0378; J1815; J7030; U0003; U0005

== ENCOUNTER 2021-09-01 09:33 | Emergency (ER) | payer MEDICARE, SELFPAY ==
--- NOTE | ~2021-09-01 | US_ITS ---
EXAMINATION: US abdomen limited DATE: 09/01/2021 12:14 INDICATION: Elevated liver enzymes TECHNIQUE: Multiple grayscale and Doppler ultrasound images of the abdomen were obtained. COMPARISON: Chest CT from yesterday FINDINGS: Bowel gas obscures visualization of the pancreas. The visualized portions of the pancreas a re unremarkable. The liver is normal with normal echogenicity and echotexture. No surface nodularity. Normal hepatopetal flow in the main portal vein. The gallbladder is contracted and contains stones. There is no pericholecystic fluid or gallbladder wall thickening. The normal common bile duct measure s 3 mm. There was no sonographic Teixeira sign. IMPRESSION: 1. Cholelithiasis without evidence of cholecystitis. Reviewed, dictated and finalized at location A.
[2021-09-01 09:38] VITALS: BP 190/71; PULSE 82; RESP 18; TEMP 36.6; O2SAT 98
--- NOTE | 2021-09-01 10:14 | ED.ALLEREA ---
HPI - Allergic Reaction General Chief complaint: Allergic Reaction <Lala Victor PA-C - Last Filed: 09/01/21 13:39> Stated complaint: allergic reaction? <Lala Victor PA-C - Last Filed: 09/01/21 13:39> Time Seen by Provider: 09/01/21 09:54 <Lala Victor PA-C - Last Filed: 09/01/21 13:39> History of Present Illness HPI narrative: 80-year-old female with a past medical history of coronary artery disease, hyperlipidemia, hypertension, GERD, sinusitis and diabetes here with diffuse itching x 3 days. Patient symptoms began with coughing and choking which prompted her to visit the emergency department on 08/27. She was admitted after she was found to be hyponatremic, and for a presumed sinus infection. She was discharged on 08/29, and was started on Augmentin for her sinus infection, which was a new med for her. States itching began shortly after discharge, and it began on her arms and has spread down her abdomen. Took half a Benadryl last evening with mild relief of her symptoms. Denies history of previous similar symptoms. She denies any abdominal pain, nausea, vomiting, changes in her stools, fevers, chest pain, shortness of breath, confusion, yellow discoloration to the skin. <Lala Victor PA-C - Last Filed: 09/01/21 13:39> Related Data Home medications: Home Medications Medication Instructions Recorded Confirmed metoprolol tartrate 25 mg tablet 25 mg PO BID tablet 04/15/19 08/28/21 omeprazole magnesium 20 mg 20 mg PO DAILY 04/15/19 08/28/21 tablet,delayed release PreserVision Lutein 1 cap PO DAILY 02/01/20 08/28/21 cholecalciferol (vitamin D3) 25 mcg PO DAILY 08/21/20 08/28/21 losartan 50 mg PO DAILY 08/28/21 08/28/21 metformin 1,000 mg PO HS 08/28/21 08/28/21 <JENNIE Peterson Last Filed: 09/01/21 13:39> Allergies/adverse reactions: Allergies Allergy/AdvReac Type Severity Reaction Status Date / Time Iodinated Contrast Media Allergy Severe Itching Verified 09/01/21 09:38 lutein Allergy Unknown Nausea,Nausea Verified 09/01/21 09:38 and Vomiting amoxicillin [From Augmentin] Allergy Itching Verified 09/01/21 09:38 clavulanic acid Allergy Itching Verified 09/01/21 09:38 [From Augmentin] codeine AdvReac Severe Abdominal Verified 09/01/21 09:38 Pain folic acid AdvReac Mild Nausea and Verified 09/01/21 09:38 Vomiting bumetanide AdvReac Unknown Nausea and Verified 09/01/21 09:38 Vomiting carvedilol AdvReac Unknown Nausea and Verified 09/01/21 09:38 Vomiting chlorthalidone AdvReac Unknown Nausea Verified 09/01/21 09:38 empagliflozin AdvReac Unknown UTI'S Verified 09/01/21 09:38 [From Jardiance] esomeprazole AdvReac Unknown Nausea and Verified 09/01/21 09:38 Vomiting estrogens, conjugated AdvReac Unknown Nausea and Verified 09/01/21 09:38 Vomiting fexofenadine AdvReac Unknown Nausea and Verified 08/27/21 21:05 Vomiting hydrochlorothiazide AdvReac Unknown Nausea and Verified 08/27/21 21:05 Vomiting hydrocodone AdvReac Unknown Nausea and Verified 08/27/21 21:05 Vomiting indapamide AdvReac Unknown Nausea and Verified 08/27/21 21:05 Vomiting lansoprazole AdvReac Unknown Nausea and Verified 08/27/21 21:05 Vomiting lisinopril AdvReac Unknown Nausea and Verified 08/27/21 21:05 Vomiting medroxyprogesterone AdvReac Unknown Nausea and Verified 08/27/21 21:05 Vomiting Sulfa (Sulfonamide AdvReac Unknown Nausea and Verified 08/27/21 21:05 Antibiotics) Vomiting tramadol AdvReac Unknown Nausea and Verified 08/27/21 21:05 Vomiting triamterene AdvReac Unknown Nausea and Verified 08/27/21 21:05 Vomiting DARIFENACIN HYDROBROMIDE AdvReac Mild Nausea and Uncoded 08/27/21 21:05 Vomiting LUTEIN AdvReac Mild Nausea and Uncoded 08/27/21 21:05 Vomiting MEDROXYPROGESTERONE ACETATE AdvReac Mild Nausea and Uncoded 08/27/21 21:05 Vomiting MULTIVITAMIN W-MINE
[2021-09-01] MEDS: diphenhydrAMINE HCl CAP 25 MG CAPSULE 50 MG PO (10:24)
[2021-09-01 10:38] LABS: Basophils Percent Auto 0.4 % (0.2-1.2); Eosinophils Absolute Auto 0.4 K/mm3 (0-0.3); Eosinophils Percent Auto 5.4 % (0-4.4); Hematocrit 38.5 % (37.0-47.0); Hemoglobin 13.1 g/dL (12.0-15.0); Immature Granulocyte Absolute 0.04 K/mm3 (0.00-0.031); Immature Granulocyte Percent A 0.6 % (0-0.5); Immature Platelet Fraction Pct 3.3 % (0.9-11.2); Lymphocytes Absolute Auto 0.76 K/mm3 (0.9-3.2); Lymphocytes Percent Auto 10.7 % (18.3-44.2); Mean Corpuscular Volume 88.1 fl (80-100); Mean Platelet Volume 9.5 fl (7.4-10.4); Monocytes Percent Auto 14.7 % (2.6-8.5); Neutrophils Absolute Auto 4.8 K/mm3 (1.3-6.7); Neutrophils Percent Auto 68.2 % (45.5-73.1); Platelet Count Result 253 k/mm3 (150-375); Red Blood Count 4.37 M/mm3 (4.2-5.4); White Blood Count 7.1 K/mm3 (4.5-10.0)
[2021-09-01 10:51] LABS: Albumin Level 4.2 g/dL (3.5-5.1); Alkaline Phosphatase 312 U/L (38-126); Anion Gap 8 mmol/L (8-16); Bilirubin,Total 3.3 mg/dL (0.2-1.3); Blood Urea Nitrogen 12 mg/dL (7-17); Calcium 9.1 mg/dL (8.4-10.2); Carbon Dioxide 25 mmol/L (22-30); Chloride 94 mmol/L (98-107); Estimated Glomerular Filt Rate > 60; Glucose 206 mg/dL (65-110); Potassium 4.3 mmol/L (3.4-5.0); Sodium 127 mmol/L (137-145)
[2021-09-01 11:41] LABS: Alanine Aminotransferase 1024 U/L (4-35); Aspartate Amino Transferase 984 U/L (14-36)
[2021-09-01 13:54] VITALS: BP 161/68; PULSE 70; RESP 18; O2SAT 99
== END 2021-09-01 13:55 | disposition home or self-care (01) ==
PROVIDERS: Physician Assistant; Emergency Provider Emergency Medicine; PCP Family Medicine
DX: K80.20 Calculus of gallbladder without cholecystitis without obstruction (principal); R74.01 Elevation of levels of liver transaminase levels; E78.5 Hyperlipidemia, unspecified; I25.10 Atherosclerotic heart disease of native coronary artery without angina pectoris; E11.319 Type 2 diabetes mellitus with unspecified diabetic retinopathy without macular edema; K21.9 Gastro-esophageal reflux disease without esophagitis; H35.3134 Nonexudative age-related macular degeneration, bilateral, advanced atrophic with subfoveal involvement; I11.9 Hypertensive heart disease without heart failure; Z79.84 Long term (current) use of oral hypoglycemic drugs; E66.9 Obesity, unspecified; Z68.41 Body mass index [BMI] 40.0-44.9, adult; Z96.642 Presence of left artificial hip joint; Z98.42 Cataract extraction status, left eye; Z98.41 Cataract extraction status, right eye; Z96.1 Presence of intraocular lens
CPT/HCPCS: 36415; 76705; 80053; 85025; 85055; 99284; A9270

== ENCOUNTER 2021-09-03 11:45 | Inpatient (IN) | payer MEDICARE, SELFPAY ==
[2021-09-03] VITALS (13 sets, daily range): BP systolic 113–167; BP diastolic 62–93; PULSE 67–79; RESP 12–24; TEMP 36.2–36.4; O2SAT 95–100; BMI 39.6
--- NOTE | ~2021-09-03 | MR_ITS ---
EXAMINATION: MR MRCP wo/w con/w 3D wo ind DATE: 09/04/2021 15:07 INDICATION: Jaundice TECHNIQUE: Magnetic resonance imaging (MRI) of the abdomen was performed without and with 17 mL Multi tera intravenous contrast. Sequences included coronal T2-weighted SS-FSE, coronal T2-weighted FS SS- FSE, coronal T2-weighted FS FIESTA, axial T2-weighted FS FIESTA, axial T2-weighted FIESTA, sagittal T 2-weighted SS-FSE, axial T1-weighted dual-echo FSPGR, axial T2-weighted SS-FSE, axial T1-weighted LAV A, axial T2-weighted STIR FSE. Thick-slab T2-weighted FRFSE-XL images were obtained for magnetic reso nance cholangiopancreatography (MRCP). Rotating maximum intensity projection 3-D reconstructions of t he volumetric data were created by the technologist. Postcontrast sequences included a time course of axial T1-weighted LAVA. COMPARISON: CT dated 09/03/2021 FINDINGS: ABDOMEN MRI: Heart size is normal. No pericardial or pleural effusion. Moderate-sized sliding-type hiatal hernia. Mild diffuse hepatic steatosis. No discrete hepatic lesions identified. Spleen, pancreas, bilateral a drenal glands and kidneys are normal. There is a thin curvilinear/serpiginous low signal intensity fi lling defect within the decompressed gallbladder which appears calcified on prior CT potentially a ga llstone although the configuration also suggests possibility of ascariasis. Marked diverticulosis sara ng the sigmoid colon. No bowel obstruction. Normal appendix. Bladder is normal. Small fat-containing umbilical hernia. Visualized portion of the uterus and bilateral adnexa are unremarkable. No patholog ically enlarged abdominal lymphadenopathy. Moderate to severe lumbar and lower thoracic spondylosis. ABDOMEN MRCP: The common bile duct is normal measuring 3 to 4 mm in maximal diameter with no evident stricture or c holedocholithiasis. The main pancreatic duct is normal. No intrahepatic biliary ductal dilation. IMPRESSION: 1. Thin curvilinear low signal intensity filling defect within the decompressed gallbladder which is calcified on prior CT but with configuration atypical for gallstone and suspicious for possible calci fied ascariasis. No intrahepatic or extrahepatic biliary ductal dilation or biliary lesions identifie d. 2. Mild diffuse hepatic steatosis. No hepatic lesions identified. 3. Prominent diverticulosis. Reviewed, dictated and finalized at location B. IMPRESSION: 1. Thin curvilinear low signal intensity filling defect within the decompressed gallbladder which is calcified on prior CT but with configuration atypical for gallstone and suspicious for possible calcified ascariasis. No intrahepatic or extrahepatic biliary ductal dilation or biliary lesions identified. 2. Mild diffuse hepatic steatosis. No hepatic lesions identified. 3. Prominent diverticulosis.
--- NOTE | ~2021-09-03 | CT_ITS ---
EXAMINATION: CT abdomen pelvis wo con DATE: 09/03/2021 15:35 INDICATION: Nausea and vomiting, elevated bilirubin. TECHNIQUE: Computed tomography (CT) of the abdomen and pelvis was performed without intravenous contr ast. Automated exposure control and iterative reconstruction technique were employed. The dose-length product was 976.53 mGy-cm. COMPARISON: Ultrasound abdomen/07/24, CT abdomen and pelvis 02/16/2014. FINDINGS: Lower thorax: Stable, benign, calcified and noncalcified pulmonary nodules. Lower lung scarring. Mitr al annulus calcification. Mild coronary artery calcifications. Small hiatal hernia. Liver: Normal. Biliary/Gallbladder: No bile duct dilation. Gallstones within a contracted gallbladder, without surr ounding inflammatory change. Spleen: No mass. No splenomegaly. Pancreas: No mass or duct dilation. Fatty atrophy. Adrenals:No mass. Kidneys: No mass, stone, or hydronephrosis. Mild perinephric stranding. GI tract: No dilation or wall thickening. Normal appendix. Diverticulosis without evidence of diverti culitis. Mesentery/Peritoneum: No ascites or mass. Retroperitoneum: No mass. Mild atherosclerotic calcifications in the abdominal vasculature. Pelvis: Pelvis partially obscured by metal artifact. Urinary bladder is unremarkable. Pelvic organs a re within normal limits. Bones/Soft Tissues: Degenerative changes in the spine. Left hip arthroplasty, intact. Small fat-conta ining umbilical hernia.No acute osseous finding. Additional Findings: None. IMPRESSION: No acute abdominopelvic process detected. Reviewed, dictated and finalized at location K.
[2021-09-03 12:23] LABS: Basophils Absolute Auto 0.1 K/mm3 (0.0-0.1); Basophils Percent Auto 0.6 % (0.2-1.2); Eosinophils Absolute Auto 0.7 K/mm3 (0-0.3); Hematocrit 38.2 % (37.0-47.0); Hemoglobin 13.7 g/dL (12.0-15.0); Immature Granulocyte Absolute 0.06 K/mm3 (0.00-0.031); Immature Granulocyte Percent A 0.6 % (0-0.5); Lymphocytes Absolute Auto 1.27 K/mm3 (0.9-3.2); Lymphocytes Percent Auto 12.2 % (18.3-44.2); Mean Corpuscular HGB Conc 35.9 g/dl (32-36); Mean Corpuscular Hemoglobin 30.2 pg (26-34); Mean Corpuscular Volume 84.1 fl (80-100); Monocytes Absolute Auto 1.2 K/mm3 (0.1-0.6); Monocytes Percent Auto 11.3 % (2.6-8.5); Neutrophils Absolute Auto 7.2 K/mm3 (1.3-6.7); Neutrophils Percent Auto 68.3 % (45.5-73.1); Platelet Count Result 266 k/mm3 (150-375); Red Blood Count 4.54 M/mm3 (4.2-5.4); Red Cell Distribution Width 13.1 % (11.5-14.5); White Blood Count 10.5 K/mm3 (4.5-10.0)
[2021-09-03 12:36] LABS: Albumin Level 4.4 g/dL (3.5-5.1); Alkaline Phosphatase 378 U/L (38-126); Anion Gap 11 mmol/L (8-16); Aspartate Amino Transferase 465 U/L (14-36); Bilirubin,Total 5.1 mg/dL (0.2-1.3); Blood Urea Nitrogen 11 mg/dL (7-17); Calcium 9.2 mg/dL (8.4-10.2); Carbon Dioxide 22 mmol/L (22-30); Chloride 93 mmol/L (98-107); Estimated Glomerular Filt Rate > 60; Glucose 243 mg/dL (65-110); Lipase 111 U/L (23-300); Potassium 3.7 mmol/L (3.4-5.0); Sodium 126 mmol/L (137-145)
[2021-09-03 12:41] LABS: Alanine Aminotransferase 796 U/L (4-35)
[2021-09-03 13:57] LABS: Add Urine Microscopic? YES; Appearance Urine Cloudy (Clear); Bacteria Urine Trace /hpf; Bilirubin Urine Negative (Negative); Color Urine Amber (Yellow); Glucose Urine UA 2+ mg/dL (Negative); Ketones Urine Trace mg/dL (Negative); Leukocyte Esterase Ur 1+ LEU/UL (Negative); Mucus Urine Rare /lpf; Nitrate Urine Negative (Negative); Protein Urine 1+ mg/dL (Negative); Specific Grav Ur 1.019 (1.001-1.035); Squamous Epithelial Cell Urine Many /hpf (Few)
[2021-09-03 14:11] LABS: Blood Urine Negative (Negative)
--- NOTE | 2021-09-03 15:01 | ED.GENADULT ---
HPI - General Adult General Chief complaint: Nausea/Vomiting/Diarrhea <Tory Griffin PA-C - Last Filed: 09/03/21 17:35> Stated complaint: itching, was here twice last week <Tory Griffin PA-C - Last Filed: 09/03/21 17:35> Time Seen by Provider: 09/03/21 14:15 <Tory Griffin PA-C - Last Filed: 09/03/21 17:35> Source: patient <Tory Griffin PA-C - Last Filed: 09/03/21 17:35> Mode of arrival: ambulatory <JENNIE Frazier Last Filed: 09/03/21 17:35> Limitations: no limitations <Tory Griffin PA-C - Last Filed: 09/03/21 17:35> History of Present Illness HPI narrative: Patient is a 80-year-old female who presents the ED with report of nausea and vomiting since yesterday. Per patient's records, she was admitted to the hospital from 08/27-08/29 for acute hyponatremia and a sinus infection. She was started on Augmentin for this, but developed itching afterwards. Patient does have numerous documented allergies. Patient was then seen in the ED on Friday, 09/01 for her itching, at which point she was noted to have elevated bilirubin and transaminitis. Right upper quadrant ultrasound was obtained and showed cholelithiasis without evidence of cholecystitis. Augmentin was switched to Doxycycline and patient was started on Zyrtec for itching. She was discharged home with follow-up information for PCP. She returns today with 2-day history of nausea and vomiting and continued itching. She denies any fever, chills, abdominal pain, chest pain, shortness of breath, hematemesis, rectal bleeding, dysuria, hematuria. She does mention she feels like she has a yeast infection from her antibiotics and complains of itching in her vaginal region. <JENNIE Frazier Last Filed: 09/03/21 17:35> Related Data Home medications: Home Medications Medication Instructions Recorded Confirmed metoprolol tartrate 25 mg tablet 25 mg PO BID tablet 04/15/19 08/28/21 omeprazole magnesium 20 mg 20 mg PO DAILY 04/15/19 08/28/21 tablet,delayed release PreserVision Lutein 1 cap PO DAILY 02/01/20 08/28/21 cholecalciferol (vitamin D3) 25 mcg PO DAILY 08/21/20 08/28/21 losartan 50 mg PO DAILY 08/28/21 08/28/21 metformin 1,000 mg PO HS 08/28/21 08/28/21 <Tory Griffin PA-C - Last Filed: 09/03/21 17:35> Allergies/adverse reactions: Allergies Allergy/AdvReac Type Severity Reaction Status Date / Time Iodinated Contrast Media Allergy Severe Itching Verified 09/01/21 09:38 lutein Allergy Unknown Nausea,Nausea Verified 09/01/21 09:38 and Vomiting amoxicillin [From Augmentin] Allergy Itching Verified 09/01/21 09:38 clavulanic acid Allergy Itching Verified 09/01/21 09:38 [From Augmentin] codeine AdvReac Severe Abdominal Verified 09/01/21 09:38 Pain folic acid AdvReac Mild Nausea and Verified 09/01/21 09:38 Vomiting bumetanide AdvReac Unknown Nausea and Verified 09/01/21 09:38 Vomiting carvedilol AdvReac Unknown Nausea and Verified 09/01/21 09:38 Vomiting chlorthalidone AdvReac Unknown Nausea Verified 09/01/21 09:38 empagliflozin AdvReac Unknown UTI'S Verified 09/01/21 09:38 [From Jardiance] esomeprazole AdvReac Unknown Nausea and Verified 09/01/21 09:38 Vomiting estrogens, conjugated AdvReac Unknown Nausea and Verified 09/01/21 09:38 Vomiting fexofenadine AdvReac Unknown Nausea and Verified 08/27/21 21:05 Vomiting hydrocodone AdvReac Unknown Nausea and Verified 08/27/21 21:05 Vomiting indapamide AdvReac Unknown Nausea and Verified 08/27/21 21:05 Vomiting lansoprazole AdvReac Unknown Nausea and Verified 08/27/21 21:05 Vomiting lisinopril AdvReac Unknown Nausea and Verified 08/27/21 21:05 Vomiting medroxyprogesterone AdvReac Unknown Nausea and Verified 08/27/21 21:05 Vomiting Sulfa (Sulfonamide AdvReac Unknown Nausea and Verified 08/27/21 21:05 Antibiotics) Vomiting tramadol AdvReac Unknown Nausea and Verified 08/27/21 21
[2021-09-03] MEDS: diphenhydrAMINE HCl INJ 50 MG/ML VIAL 25 MG IV PUSH (15:31)
[2021-09-03] MEDS: FLUCONAZOLE 150 MG TABLET PO (16:09)
[2021-09-03 18:00] LABS: Hepatitis B Surface Antigen Negative (Negative)
[2021-09-03 18:05] LABS: Bilirubin Indirect 1.1 mg/dL (0-1.1)
[2021-09-03 18:09] LABS: HAV RESULT Negative (Negative); Hepatitis B Core IgM Result Negative (Negative)
[2021-09-03 18:17] LABS: Hepatitis C Virus Antibody Negative (Negative)
[2021-09-03 19:10] LABS: INR 0.9
[2021-09-03 19:11] LABS: Partial Thromboplastin Time 25.3 SECONDS (22.3-36.8)
--- NOTE | 2021-09-03 20:32 | PM.IMHP ---
H&P: HPI History of Present Illness Date/Time: 09/03/21 20:32 Chief Complaint: Nausea, vomiting, itching Narrative: 80-year-old female with a past medical history of coronary disease, hyperlipidemia, hypertension, GERD, type 2 diabetes mellitus and recent hospitalization for hyponatremia and chronic sinusitis resulting in chronic cough who presented back to the ER with pruritus nausea and vomiting. The patient was discharged from the hospital 08/29/2021 on Augmentin to treat her chronic sinusitis. She also had the addition of Flonase, Singulair and albuterol inhaler. She returned to the ER 09/01/2021 due to pruritus. At that time she is noted to have hyperbilirubinemia and transaminitis. Her Augmentin was stopped and she was switched to doxycycline. After she returned home with the doxycycline about 24 hours later she began having nausea and vomiting. She reports that she has been able to keep down some liquids but each time she try sees any real food she has vomiting. She denies any associated abdominal pain, fevers or chills. She has had significant improvement in her cough and postnasal drip even without the antibiotic therapy. She reports that the pride S is involving her trunk and arms. It is somewhat improved with Benadryl. She she reports her vomiting does not contain any coffee-ground emesis or hematemesis she denies any bilious emesis. She has been having normally formed stools that her brown in color. Her last bowel movement was today prior to coming to the medical floor. She reports any time she takes oral antibiotics he develops vaginal candidiasis and requested a dose of fluconazole in the ER. Review of Systems Review of Systems: 12 systems were reviewed with pertinent positives and negatives per HPI. Except as documented in the HPI, all other systems were reviewed and are negative. 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 Coronary artery disease involving [place] coronary artery of [place] heart Diabetic retinopathy Essential hypertension GERD (gastroesophageal reflux disease) Hiatal hernia Hypertensive heart disease Left hip pain Left knee pain Obesity Pure hypercholesterolemia Type 2 diabetes mellitus with retinopathy Surgical History Surgical History History of cardiac catheterization (05/21/19) No significant obstructive coronary disease noted History of section History of esophagogastroduodenoscopy (EGD) (~2013) Normal History of left hip replacement (07/2020) Status post cataract extraction of both eyes with insertion of intraocular lens Family History Family History Mother Family history of diabetes mellitus in first degree relative Father Family history of coronary artery disease Social History Social History Social History: The patient been for 50 years. [facility] never smoked, drank alcohol or used illicit substances. She has 1 son who is healthy. Code status: Full code Surrogate decision maker: Primary care physician: Dr. Mil Alejandre Smoking status: Never smoker Second hand tobacco smoke exposure: No Additional smoking assessment comments: DENIES ANY FORM OF TOBACCO USE Alcohol intake: never Substance use: never Substance use type: does not use Gender identity (if verbalized by the patient): Female Sexual Orientation (if Verbalized by the Patient): Straight or Heterosexual Spiritual care concerns: No Meds Home Medications and Allergies Home Medications Medication Instructions Recorded Confirmed Type metoprolol tartrate 25 mg tablet 25 mg PO BID tablet 04/15/19 09/03/21 History omeprazole magnesium 20
--- NOTE | 2021-09-03 20:39 | PC.NURSE ---
Delay in pt transport to floor due to lack of staffing.
--- NOTE | 2021-09-03 21:00 | ADMGEN ---
This patient, Liliya Bernstein, was admitted to Medical Room 347-. Patient/family oriented to hospital policies and general routines including ID bracelet, bed and alarms, visiting hours, pain management, procedures, bathroom and other care routines, personal items, smoking policy, room service/diet, and visiting hours. Information on how to activate the Rapid Response Team has been discussed. Patient/Family are encouraged to report perceived risks to care and to ask questions if they do not understand what they are told or what they should do.
[2021-09-03] MEDS: SODIUM CHLORIDE 0.9% IV 1,000 ML 100 ML IV CONT (21:41)
[2021-09-03 23:01] LABS: Glucose Point of Care 237 mg/dl (65-105)
[2021-09-03] MEDS: diphenhydrAMINE HCl CAP 25 MG CAPSULE PO (23:52)
[2021-09-04 00:33] VITALS: BP 176/90; BP 180/90
[2021-09-04 05:30] VITALS: BP 157/55; PULSE 74; RESP 20; TEMP 36.4; O2SAT 95
[2021-09-04 05:54] LABS: Hematocrit 32.1 % (37.0-47.0); Hemoglobin 11.5 g/dL (12.0-15.0); Mean Corpuscular HGB Conc 35.8 g/dl (32-36); Mean Corpuscular Volume 83.8 fl (80-100); Mean Platelet Volume 9.6 fl (7.4-10.4); Platelet Count Result 225 k/mm3 (150-375); Red Blood Count 3.83 M/mm3 (4.2-5.4); Red Cell Distribution Width 12.9 % (11.5-14.5); White Blood Count 7.6 K/mm3 (4.5-10.0)
[2021-09-04 06:05] LABS: Alanine Aminotransferase 595 U/L (4-35); Albumin Level 3.5 g/dL (3.5-5.1); Alkaline Phosphatase 315 U/L (38-126); Anion Gap 7 mmol/L (8-16); Aspartate Amino Transferase 385 U/L (14-36); Bilirubin,Total 4.9 mg/dL (0.2-1.3); Blood Urea Nitrogen 12 mg/dL (7-17); Calcium 8.2 mg/dL (8.4-10.2); Carbon Dioxide 21 mmol/L (22-30); Chloride 95 mmol/L (98-107); Estimated Glomerular Filt Rate > 60; Glucose 235 mg/dL (65-110); Potassium 3.3 mmol/L (3.4-5.0); Sodium 123 mmol/L (137-145)
--- NOTE | 2021-09-04 07:35 | WPDGICN ---
Assessment and Plan Assessment and plan (1) Jaundice: Code(s): R17 - Unspecified jaundice Status: Acute Assessment and Plan: given the fact she does have gallstones, she may have coli though cholelithiasis which would also explain her liver enzyme elevation and the pruritus. I will schedule her for an MRCP to rule out, or in common bile duct stones. (2) Transaminitis: Code(s): R74.01 - Elevation of levels of liver transaminase levels Status: Acute Assessment and Plan: Certainly this could be due to her antibiotic, Augmentin. I personally have not seen Jaundice and or significant transaminitis with that before, but it is listed as a possible complication. (3) Pruritus: Code(s): L29.9 - Pruritus, unspecified Status: Acute Assessment and Plan: Likely due to her cholestatic hepatic inflammation giving rise to jaundice or possible choledocholithiasis. She does have gallstones which makes the latter a probability. Will order MRCP GI Consult Note Consult date/time: 09/04/21 07:35 HPI: Liliya Bernstein is a 80 year old female Who was admitted with pruritus. She was hospitalized last week with among other things what was diagnosed as a sinus infection. She was started on Augmentin and sent home on it. Within a day or so she began to have pruritus. She came back to emergency room, where she was found to have hyperbilirubinemia and transaminitis, and was switched to doxycycline. She is still having those symptoms and has also noticed that her urine has become dark. Her liver enzymes are quite elevated now compared to last week. She states that she was told she had a gallstone. . Denies nausea vomiting fever chills. She has tended to have bowel problems which she attributes to being on several medications and she takes about 8 oz of prune juice every day which helps her stay regular. 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 involvement Coronary artery disease involving [place] coronary artery of [place] heart Diabetic retinopathy Essential hypertension GERD (gastroesophageal reflux disease) Hiatal hernia Hypertensive heart disease Left hip pain Left knee pain Obesity Pure hypercholesterolemia Type 2 diabetes mellitus with retinopathy Surgical History Surgical History History of cardiac catheterization (10/20/18) No significant obstructive coronary disease noted History of section History of esophagogastroduodenoscopy (EGD) (~2013) Normal History of left hip replacement (07/2020) Status post cataract extraction of both eyes with insertion of intraocular lens Family History Family History Mother Family history of diabetes mellitus in first degree relative Father Family history of coronary artery disease Social History Social History Social History: The patient been for 50 years. [facility] never smoked, drank alcohol or used illicit substances. She has 1 son who is healthy. Code status: Full code Surrogate decision maker: Primary care physician: Dr. Mil Alejandre Smoking status: Never smoker Second hand tobacco smoke exposure: No Additional smoking assessment comments: DENIES ANY FORM OF TOBACCO USE Alcohol intake: never Substance use: never Substance use type: does not use Gender identity (if verbalized by the patient): Female Sexual Orientation (if Verbalized by the Patient): Straight or Heterosexual Spiritual care concerns: No Meds Home Medications and Allergies Home Medicat
[2021-09-04 07:44] LABS: Glucose Point of Care 199 mg/dl (65-105)
[2021-09-04] MEDS: SODIUM CHLORIDE 0.9% IV 1,000 ML 100 ML IV CONT (08:30)
[2021-09-04] MEDS: diphenhydrAMINE HCl CAP 25 MG CAPSULE PO (08:30)
[2021-09-04] MEDS: methylPREDNISolone SOD SUCC 125 MG VIAL 60 MG IV PUSH (08:31)
[2021-09-04] MEDS: ENOXAPARIN 40 MG/0.4 ML SYRINGE SUB-Q (08:32)
[2021-09-04 08:42] LABS: INR 0.8; Prothrombin Time 10.3 Seconds (11.1-14.7)
[2021-09-04 11:53] LABS: Glucose Point of Care 352 mg/dl (65-105)
[2021-09-04] MEDS: INSULIN ASPART (*BKC) 100 UNITS/ML SUB-Q ×2 (12:05→16:55)
[2021-09-04 15:21] VITALS: BP 154/72; PULSE 100; RESP 18; TEMP 36.9; O2SAT 96
[2021-09-04 16:25] LABS: Glucose Point of Care 348 mg/dl (65-105)
--- NOTE | 2021-09-04 16:48 | PM.IMPN ---
Progress Note: A&P Assessment and Plan (1) Jaundice: Code(s): R17 - Unspecified jaundice Status: Acute Assessment and Plan: Total Bili level normal on 08/29/21. Bili to 5.1 yesterday. All direct. PT/PTT okay. MRCP showing no intrahepatic or extrahepatic biliary ductal dilation or biliary lesions identified. Related to doxycycline? LFTs and bili levels better and symptoms improved. Did receive one dose of Solu-medrol this morning. Will continue to monitor. (2) Pruritus: Code(s): L29.9 - Pruritus, unspecified Status: Acute Assessment and Plan: Related to the hyperbilirubinemia. As above (3) Transaminitis: Code(s): R74.01 - Elevation of levels of liver transaminase levels Status: Acute Assessment and Plan: LFTs normal on 08/29 but AST 984, ALT 1024 and AP 312. Levels trending down except AP. MRCP does show hepatic steatosis. Doxycycline can cause hepatotoxicity so would consider this a drug reaction. Levels trending down off the medication. Follow. (4) Acute hyponatremia: Code(s): E87.1 - Hypo-osmolality and hyponatremia Status: Acute Assessment and Plan: Na 119 here end of July and was 131 at discharge. Thought related to her HCTZ but this was continued at discharge. Na 127 here but has dropped to 123 now. Check urine studies. Check TSH and cortisol. (5) Vaginal candidiasis: Code(s): B37.3 - Candidiasis of vulva and vagina Status: Acute Assessment and Plan: Patient with symptoms of vaginal candidiasis. She received 1 dose of fluconazole ED. continue to monitor symptoms (6) Abnormal urinalysis: Code(s): R82.90 - Unspecified abnormal findings in urine Status: Acute Assessment and Plan: UA noted. Follow up on UCx. Suspect contaminant so will hold on antibiotics. (7) Type 2 diabetes mellitus with hyperglycemia, without long-term current use of insulin: Code(s): E11.65 - Type 2 diabetes mellitus with hyperglycemia Status: Acute Assessment and Plan: A1c 7.0 in May. The patient's blood glucose was reviewed on 09/04 Glucose elevated. Continue AccuCheks covering with sliding scale. Hypoglycemia protocol available as needed. Add lantus. (8) DVT prophylaxis: Code(s): Z29.9 - Encounter for prophylactic measures, unspecified Status: Acute Assessment and Plan: Guillermo Subjective Date/time seen: 09/04/21 16:48 Interval history: 80yo female with CAD, DM, HTN here for pruritus, nausea and vomiting. Feels better. No Cp or abd pain. Eating okay without nausea or vomiting now. Pruritus is better today. Exam Narrative: AF 98.4 154/72 100 18 96% ra Gen - NARD sitting up in chair feeding herself dinner HEENT - scleral icterus. Chest - CTA bilaterally, nml RR CV - tachycardic, regular Abd - Soft, NT/ND, Positive BS Ext - trace pedal edema Psych - Nml mood and affect Skin - Warm and dry. jaundiced Objective Data Vital Signs Vital Signs: Vital Signs - 24 hr 09/03/21 20:39 09/03/21 22:00 09/04/21 00:33 Temperature 97.2 F L Pulse Rate 67 79 Respiratory Rate 18 20 Blood Pressure 167/62 H 160/88 H 180/90 H Pulse Oximetry 95 100 09/04/21 05:30 09/04/21 15:21 Temperature 97.6 F 98.4 F Pulse Rate 74 100 Respiratory Rate 20 18 Blood Pressure 157/55 H 154/72 H Pulse Oximetry 95 96 Intake/Output Intake/Output: Intake & Output 09/01/21 09/02/21 09/03/21 09/04/21 23:59 23:59 23:59 23:59 Intake Total 1640 Output Total 2400 Balance -760 Meds/Results Medications: Active Medications Generic Name Dose Route Start Last Admin Trade Name Freq PRN Reason Stop Dose Admin Dextrose 12.5 gm 09/03/21 20:29 Dextrose 50% 25 Gm/50 Ml Syringe IV PUSH PRN PRN Hypoglycemia Protocol Diphenhydramine HCl 25 mg 09/03/21 22:01 09/04/21 08:30 Diphenhydramine Hcl Cap 25 Mg Capsule PO 25 mg Q4H PRN
[2021-09-04] MEDS: POTASSIUM CHLORIDE 20 MEQ PACKET (FOR LIQUID) PO (17:30)
[2021-09-04 18:12] LABS: Creatinine Urine 25.3 mg/dL
[2021-09-04 18:22] LABS: Sodium Urine Random 14 meq/L
[2021-09-04 20:06] LABS: Sodium 129 mmol/L (137-145)
[2021-09-04 20:32] VITALS: PULSE 74
[2021-09-04] MEDS: FLUTICASONE PROPIONATE 0.05% NA SPR 16 GM BTL (*BKC) 2 SPRAY NASAL (20:32)
[2021-09-04] MEDS: METOPROLOL TARTRATE 25 MG TABLET PO (20:32)
[2021-09-04] MEDS: INSULIN GLARGINE (*BKC) 100 UNITS/ML 10 UNITS SUB-Q (20:38)
[2021-09-04 21:34] LABS: Glucose Point of Care 423 mg/dl (65-105)
[2021-09-04 21:49] VITALS: O2SAT 96
[2021-09-04 22:00] VITALS: BP 153/95; PULSE 75; RESP 18; TEMP 36.3; O2SAT 98
[2021-09-04] MEDS: INSULIN ASPART (*BKC) 100 UNITS/ML 6 UNITS SUB-Q (22:22)
[2021-09-04 22:47] LABS: Glucose Point of Care 360 mg/dl (65-105)
[2021-09-05 00:48] LABS: Sodium 129 mmol/L (137-145)
[2021-09-05] MEDS: diphenhydrAMINE HCl CAP 25 MG CAPSULE PO (03:29)
[2021-09-05 05:06] VITALS: BP 157/55; PULSE 72; RESP 20; TEMP 36.8; O2SAT 98
[2021-09-05 06:12] LABS: Hematocrit 35.8 % (37.0-47.0); Hemoglobin 12.2 g/dL (12.0-15.0); Mean Corpuscular HGB Conc 34.1 g/dl (32-36); Mean Corpuscular Hemoglobin 30.3 pg (26-34); Mean Corpuscular Volume 88.8 fl (80-100); Platelet Count Result 253 k/mm3 (150-375); Red Blood Count 4.03 M/mm3 (4.2-5.4); Red Cell Distribution Width 13.8 % (11.5-14.5); White Blood Count 16.6 K/mm3 (4.5-10.0)
[2021-09-05 06:25] LABS: Hemoglobin A1C 7.2 % (<5.7)
[2021-09-05 06:29] LABS: Alanine Aminotransferase 676 U/L (4-35); Albumin Level 3.9 g/dL (3.5-5.1); Alkaline Phosphatase 376 U/L (38-126); Anion Gap 7 mmol/L (8-16); Aspartate Amino Transferase 441 U/L (14-36); Bilirubin Direct 0.5 mg/dL (0-0.3); Bilirubin,Total 3.4 mg/dL (0.2-1.3); Blood Urea Nitrogen 14 mg/dL (7-17); Calcium 8.8 mg/dL (8.4-10.2); Carbon Dioxide 20 mmol/L (22-30); Chloride 103 mmol/L (98-107); Estimated Glomerular Filt Rate > 60; Glucose 240 mg/dL (65-110); Lipase 66 U/L (23-300); Potassium 3.6 mmol/L (3.4-5.0); Sodium 130 mmol/L (137-145)
[2021-09-05 07:05] LABS: Thyroid Stimulating Hormone Reflex 0.329 uIU/mL (0.465-4.68)
--- NOTE | 2021-09-05 07:19 | WPDGIPROGNO ---
Progress Note: A&P Assessment and Plan (1) Jaundice: Code(s): R17 - Unspecified jaundice Status: Acute Assessment and Plan: given the fact she does have gallstones, she may have coli though cholelithiasis which would also explain her liver enzyme elevation and the pruritus. I will schedule her for an MRCP to rule out, or in common bile duct stones. 4/6 Her bilirubin has actually increased a bit since admission. (2) Transaminitis: Code(s): R74.01 - Elevation of levels of liver transaminase levels Status: Acute Assessment and Plan: Certainly this could be due to her antibiotic, Augmentin. I personally have not seen Jaundice and or significant transaminitis with that before, but it is listed as a possible complication. 4/6 Transaminases although lower than admission are not significantly better than yesterday. hepatitis serology is all negative (3) Pruritus: Code(s): L29.9 - Pruritus, unspecified Status: Acute Assessment and Plan: Likely due to her cholestatic hepatic inflammation giving rise to jaundice or possible choledocholithiasis. She does have gallstones which makes the latter a probability. Will order MRCP 4/6 MRCP was negative for any intrahepatic disease. There was a question of a possible calcified object in the gallbladder but no definite stones. 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 She states that her itching had subsided yesterday but now is returning. Actually she was up most of the night. Otherwise, constitutionally, she has no other complaints. she is tolerating her diabetic diet Review of Systems Review of Systems: All systems reviewed & are unremarkable except as noted in HPI and below Exam Const: General: alert Nutritional Appearance: overweight Orientation/consciousness: patient oriented x3 Eyes: Sclera: scleral abnormality (icteric) Resp: Auscultation: clear to auscultation bilaterally Cardio: Rhythm: regular rhythm Skin: General skin exam: ecchymosis ( right upper extremity) and jaundice ( faintly) Neuro: General: patient oriented x3 Objective Data Vital Signs Vital Signs: Vital Signs - 24 hr 09/04/21 15:21 09/04/21 20:32 09/04/21 21:49 Temperature 36.9 C Pulse Rate 100 74 Respiratory Rate 18 Blood Pressure 154/72 H Pulse Oximetry 96 96 09/04/21 22:00 09/05/21 05:06 Temperature 36.3 C L 36.8 C Pulse Rate 75 72 Respiratory Rate 18 20 Blood Pressure 153/95 H 157/55 H Pulse Oximetry 98 98 Intake/Output Intake/Output: Intake & Output 09/02/21 09/03/21 09/04/21 09/05/21 23:59 23:59 23:59 23:59 Intake Total 3000 550 Output Total 3100 800 Balance -100 -250 Meds/Results Medications: Active Medications Generic Name Dose Route Start Last Admin Trade Name Freq PRN Reason Stop Dose Admin Albuterol 2 puff 09/04/21 17:12 Albuterol Sulfate (*Sp) Aerosol 1 Puff INHALATION QID PRN shortness of breath or wheezing Amlodipine Besylate 10 mg 09/05/21 09:00 Amlodipine Besylate 5 Mg Tablet PO DAILY OLIVIA Dextrose 12.5 gm 09/03/21 20:29 Dextrose 50% 25 Gm/50 Ml Syringe IV PUSH PRN PRN Hypoglycemia Protocol Diphenhydramine HCl 25 mg 09/03/21 22:01 09/05/21 03:29 Diphenhydramine Hcl Cap 25 Mg Capsule PO 25 mg Q4H PRN Administration Itching Enoxaparin Sodium 40 mg 09/04/21 09:00 09/04/21 08:32 Enoxaparin 40 Mg/0.4 Ml Syringe SUB-Q 40 mg DAILY OLIVIA Administration Fluticasone Propionate 2 spray 09/04/21 21:00 09/04/21 20:32 Fluticasone Propionate 0.05% Na Spr 16 Gm Btl (*Bkc) NASAL 2 spray Q12HR OLIVIA Administration Glucagon 1 mg 09/03/21 20:29 Glucagon For Inj 1 Mg Vial IM PRN PRN Hypoglycemia Protocol Glucos
[2021-09-05 07:59] LABS: Glucose Point of Care 237 mg/dl (65-105)
[2021-09-05] MEDS: ENOXAPARIN 40 MG/0.4 ML SYRINGE SUB-Q (08:29)
[2021-09-05 08:30] VITALS: PULSE 72
[2021-09-05] MEDS: FLUTICASONE PROPIONATE 0.05% NA SPR 16 GM BTL (*BKC) 2 SPRAY NASAL ×2 (08:30→20:12)
[2021-09-05] MEDS: amLODIPine BESYLATE 5 MG TABLET 10 MG PO (08:30)
[2021-09-05] MEDS: PANTOPRAZOLE 40 MG TABLET PO (08:30)
[2021-09-05] MEDS: METOPROLOL TARTRATE 25 MG TABLET PO ×2 (08:30→20:13)
[2021-09-05] MEDS: LOSARTAN POTASSIUM 50 MG TABLET PO ×2 (08:30→15:36)
[2021-09-05] MEDS: INSULIN ASPART (*BKC) 100 UNITS/ML SUB-Q ×3 (08:33→16:33)
[2021-09-05 12:04] LABS: Glucose Point of Care 359 mg/dl (65-105)
[2021-09-05 14:00] VITALS: BP 165/67; PULSE 72; RESP 16; TEMP 37; O2SAT 99
[2021-09-05 14:12] LABS: Total Triiodothyronine (T3) 1.29 NG/ML (0.97-1.69)
--- NOTE | 2021-09-05 14:12 | PM.IMPN ---
Progress Note: A&P Assessment and Plan (1) Jaundice: Code(s): R17 - Unspecified jaundice Status: Acute Assessment and Plan: Total Bili level normal on 08/29/21. Bili up to 5.1. Both direct and indirect essentially normal. PT/PTT okay. MRCP showing no intrahepatic or extrahepatic biliary ductal dilation or biliary lesions identified. Related to Augmentin. Did receive one dose of Solu-Medrol on 09/04. Bili level better today and symptoms improved. AST/ALT higher today. Will continue to monitor. Discussed with GI. Home tomorrow if levels flat or better. (2) Pruritus: Code(s): L29.9 - Pruritus, unspecified Status: Acute Assessment and Plan: Related to the hyperbilirubinemia. As above (3) Transaminitis: Code(s): R74.01 - Elevation of levels of liver transaminase levels Status: Acute Assessment and Plan: LFTs normal on 08/29 but AST 984, ALT 1024 and AP 312 on 09/01. Patient was discharged home with Augmentin on 08/29 and was changed to Doxycycline on 09/01 in the ED. [place] that the Augmentin caused the acute hepatitis. Levels were trending down but higher today. MRCP does show hepatic steatosis. Doxycycline can cause hepatotoxicity so could have contributed to her elevated LFTs. Follow. (4) Acute hyponatremia: Code(s): E87.1 - Hypo-osmolality and hyponatremia Status: Acute Assessment and Plan: Na 119 here end of July and was 131 at discharge. Thought related to her HCTZ but this was continued at discharge. Na 127 here but has dropped to 123. Urine Na 14, UCr 25 with FENa 0.3%. TSH low but FT4 normal. Cortisol low as well but received Solu-Medrol yesterday. Repeat Cortisol on the am (5) Vaginal candidiasis: Code(s): B37.3 - Candidiasis of vulva and vagina Status: Acute Assessment and Plan: Patient with symptoms of vaginal candidiasis. She received 1 dose of fluconazole ED. Symptoms recurring so anthony add intravaginal antifungal. Continue to monitor symptoms (6) Abnormal urinalysis: Code(s): R82.90 - Unspecified abnormal findings in urine Status: Acute Assessment and Plan: UA noted with UCx growing mixed genital chaka related to contaminant. (7) Type 2 diabetes mellitus with hyperglycemia, without long-term current use of insulin: Code(s): E11.65 - Type 2 diabetes mellitus with hyperglycemia Status: Acute Assessment and Plan: A1c 7.0 in May. The patient's blood glucose was reviewed on 09/05 Glucose elevated after steroid injection. Continue AccuCheks covering with sliding scale. Hypoglycemia protocol available as needed. Advance lantus. (8) DVT prophylaxis: Code(s): Z29.9 - Encounter for prophylactic measures, unspecified Status: Acute Assessment and Plan: Lovenox Subjective Date/time seen: 09/05/21 14:12 Interval history: 80yo female with CAD, DM, HTN here for pruritus, nausea and vomiting. She complains of vaginal itching. Slept poorly but related to her mostly up at night. Pruritus better. No n/v. +BMs brown in color Exam Narrative: AF 98.6 165/67 72 16 99% ra Gen - NARD HEENT - scleral icterus Chest - CTA bilaterally, nml RR CV - RRR S1/S2 Abd - Soft, NT/ND, Positive BS Ext - trace pedal edema Psych - Nml mood and affect Skin - Warm and dry. jaundiced Objective Data Vital Signs Vital Signs: Vital Signs - 24 hr 09/04/21 15:21 09/04/21 20:32 09/04/21 21:49 Temperature 98.4 F Pulse Rate 100 74 Respiratory Rate 18 Blood Pressure 154/72 H Pulse Oximetry 96 96 09/04/21 22:00 09/05/21 05:06 09/05/21 08:30 Temperature 97.4 F L 98.2 F Pulse Rate 75 72 72 Respiratory Rate 18 20 Blood Pressure 153/95 H 157/55 H Pulse Oximetry 98 98 Intake/Output Intake/Output: Intake & Output 09/02/21 09/03/21 09/04/21 09/05/21 23:59 23:59 23:59 23:59 Intake Total 3000 1030 Output Total 3100 800 Balance -100 230
[2021-09-05 16:34] LABS: Glucose Point of Care 245 mg/dl (65-105)
[2021-09-05 20:13] VITALS: PULSE 68
[2021-09-05] MEDS: MICONAZOLE NITRATE 2% VAGINAL CREAM 45 GM TUBE 1 APPFUL VAGINAL (20:13)
[2021-09-05] MEDS: INSULIN GLARGINE (*BKC) 100 UNITS/ML 15 UNITS SUB-Q (20:19)
[2021-09-05 21:01] LABS: Glucose Point of Care 280 mg/dl (65-105)
[2021-09-05 21:05] VITALS: BP 152/69; PULSE 70; RESP 18; TEMP 36.6; O2SAT 98
[2021-09-06 04:58] VITALS: BP 156/75; PULSE 77; RESP 18; TEMP 36.6; O2SAT 97
[2021-09-06 06:25] LABS: Hematocrit 36.3 % (37.0-47.0); Hemoglobin 12.2 g/dL (12.0-15.0); Mean Corpuscular HGB Conc 33.6 g/dl (32-36); Mean Corpuscular Hemoglobin 30.5 pg (26-34); Mean Corpuscular Volume 90.8 fl (80-100); Mean Platelet Volume 9.8 fl (7.4-10.4); Platelet Count Result 268 k/mm3 (150-375); Red Cell Distribution Width 14.6 % (11.5-14.5); White Blood Count 11.1 K/mm3 (4.5-10.0)
[2021-09-06 06:35] LABS: Alanine Aminotransferase 643 U/L (4-35); Albumin Level 3.8 g/dL (3.5-5.1); Alkaline Phosphatase 372 U/L (38-126); Anion Gap 7 mmol/L (8-16); Aspartate Amino Transferase 432 U/L (14-36); Bilirubin,Total 2.8 mg/dL (0.2-1.3); Blood Urea Nitrogen 14 mg/dL (7-17); Calcium 8.3 mg/dL (8.4-10.2); Carbon Dioxide 22 mmol/L (22-30); Chloride 105 mmol/L (98-107); Estimated Glomerular Filt Rate > 60; Glucose 171 mg/dL (65-110); Potassium 3.8 mmol/L (3.4-5.0); Sodium 134 mmol/L (137-145)
[2021-09-06 07:42] LABS: Glucose Point of Care 168 mg/dl (65-105)
[2021-09-06 09:15] VITALS: PULSE 80
[2021-09-06] MEDS: METOPROLOL TARTRATE 25 MG TABLET PO ×2 (09:15→21:31)
[2021-09-06] MEDS: FLUTICASONE PROPIONATE 0.05% NA SPR 16 GM BTL (*BKC) 2 SPRAY NASAL ×2 (09:15→21:32)
[2021-09-06] MEDS: amLODIPine BESYLATE 5 MG TABLET 10 MG PO (09:15)
[2021-09-06] MEDS: PANTOPRAZOLE 40 MG TABLET PO (09:16)
[2021-09-06] MEDS: ENOXAPARIN 40 MG/0.4 ML SYRINGE SUB-Q (09:16)
[2021-09-06] MEDS: LOSARTAN POTASSIUM 100 MG TABLET PO (09:16)
[2021-09-06 11:14] LABS: Glucose Point of Care 338 mg/dl (65-105)
[2021-09-06] MEDS: INSULIN ASPART (*BKC) 100 UNITS/ML SUB-Q ×2 (11:25→16:44)
--- NOTE | 2021-09-06 13:07 | PM.DS ---
DS: Discharge Diagnosis Discharge Diagnosis (1) Jaundice: Code(s): R17 - Unspecified jaundice Status: Acute Assessment and Plan: Total Bili level normal on 08/29/21. Bili to 5.1 yesterday. All direct. PT/PTT okay. MRCP showing no intrahepatic or extrahepatic biliary ductal dilation or biliary lesions identified. Related to doxycycline? LFTs and bili levels better and symptoms improved. Did receive one dose of Solu-medrol this morning. Will continue to monitor. (2) Pruritus: Code(s): L29.9 - Pruritus, unspecified Status: Acute Assessment and Plan: Related to the hyperbilirubinemia. As above (3) Transaminitis: Code(s): R74.01 - Elevation of levels of liver transaminase levels Status: Acute Assessment and Plan: LFTs normal on 08/29 but AST 984, ALT 1024 and AP 312. Levels trending down except AP. MRCP does show hepatic steatosis. Doxycycline can cause hepatotoxicity so would consider this a drug reaction. Levels trending down off the medication. Follow. (4) Acute hyponatremia: Code(s): E87.1 - Hypo-osmolality and hyponatremia Status: Acute Assessment and Plan: Na 119 here end of July and was 131 at discharge. Thought related to her HCTZ but this was continued at discharge. Na 127 here but has dropped to 123 now. Check urine studies. Check TSH and cortisol. (5) Vaginal candidiasis: Code(s): B37.3 - Candidiasis of vulva and vagina Status: Acute Assessment and Plan: Patient with symptoms of vaginal candidiasis. She received 1 dose of fluconazole ED. continue to monitor symptoms (6) Abnormal urinalysis: Code(s): R82.90 - Unspecified abnormal findings in urine Status: Acute Assessment and Plan: UA noted. Follow up on UCx. Suspect contaminant so will hold on antibiotics. (7) Type 2 diabetes mellitus with hyperglycemia, without long-term current use of insulin: Code(s): E11.65 - Type 2 diabetes mellitus with hyperglycemia Status: Acute Assessment and Plan: A1c 7.0 in May. The patient's blood glucose was reviewed on 09/04 Glucose elevated. Continue AccuCheks covering with sliding scale. Hypoglycemia protocol available as needed. Add lantus. (8) DVT prophylaxis: Code(s): Z29.9 - Encounter for prophylactic measures, unspecified Status: Acute Assessment and Plan: [place]illermo DS: Summary Hospital Course Reason for hospitalization: Chief Complaint: Nausea, vomiting, itching Narrative: 80-year-old female with a past medical history of coronary disease, hyperlipidemia, hypertension, GERD, type 2 diabetes mellitus and recent hospitalization for hyponatremia and chronic sinusitis resulting in chronic cough who presented back to the ER with pruritus nausea and vomiting. The patient was discharged from the hospital 08/29/2021 on Augmentin to treat her chronic sinusitis. She also had the addition of Flonase, Singulair and albuterol inhaler. She returned to the ER 09/01/2021 due to pruritus. At that time she is noted to have hyperbilirubinemia and transaminitis. Her Augmentin was stopped and she was switched to doxycycline. After she returned home with the doxycycline about 24 hours later she began having nausea and vomiting. She reports that she has been able to keep down some liquids but each time she try sees any real food she has vomiting. She denies any associated abdominal pain, fevers or chills. She has had significant improvement in her cough and postnasal drip even without the antibiotic therapy. She reports that the pride S is involving her trunk and arms. It is somewhat improved with Benadryl. She she reports her vomiting does not contain any coffee-ground emesis or hematemesis she denies any bilious emesis. She has been having normally formed stools that her brown in color. Her last bowel movement was today prior to coming to the medical floor. She reports any
--- NOTE | 2021-09-06 15:49 | PM.IMPN ---
Progress Note: A&P Assessment and Plan (1) Jaundice: Code(s): R17 - Unspecified jaundice Status: Acute Assessment and Plan: Total Bili level normal on 08/29/21. Bili to 5.1 yesterday. All direct. PT/PTT okay. MRCP showing no intrahepatic or extrahepatic biliary ductal dilation or biliary lesions identified. Related to doxycycline? LFTs and bili levels better and symptoms improved. Did receive one dose of Solu-medrol this morning. Will continue to monitor. (2) Pruritus: Code(s): L29.9 - Pruritus, unspecified Status: Acute Assessment and Plan: Related to the hyperbilirubinemia. As above (3) Transaminitis: Code(s): R74.01 - Elevation of levels of liver transaminase levels Status: Acute Assessment and Plan: LFTs normal on 08/29 but AST 984, ALT 1024 and AP 312. Levels trending down except AP. MRCP does show hepatic steatosis. Doxycycline can cause hepatotoxicity so would consider this a drug reaction. Levels trending down off the medication. Follow. (4) Acute hyponatremia: Code(s): E87.1 - Hypo-osmolality and hyponatremia Status: Acute Assessment and Plan: Na 119 here end of July and was 131 at discharge. Thought related to her HCTZ but this was continued at discharge. Na 127 here but has dropped to 123 now. Check urine studies. Check TSH and cortisol. (5) Vaginal candidiasis: Code(s): B37.3 - Candidiasis of vulva and vagina Status: Acute Assessment and Plan: Patient with symptoms of vaginal candidiasis. She received 1 dose of fluconazole ED. continue to monitor symptoms (6) Abnormal urinalysis: Code(s): R82.90 - Unspecified abnormal findings in urine Status: Acute Assessment and Plan: UA noted. Follow up on UCx. Suspect contaminant so will hold on antibiotics. (7) Type 2 diabetes mellitus with hyperglycemia, without long-term current use of insulin: Code(s): E11.65 - Type 2 diabetes mellitus with hyperglycemia Status: Acute Assessment and Plan: A1c 7.0 in May. The patient's blood glucose was reviewed on 09/04 Glucose elevated. Continue AccuCheks covering with sliding scale. Hypoglycemia protocol available as needed. Add lantus. (8) DVT prophylaxis: Code(s): Z29.9 - Encounter for prophylactic measures, unspecified Status: Acute Assessment and Plan: Lovenox Additional Plan The patient has hyperbilirubinemia and transaminitis. CT of the abdomen pelvis does not demonstrate an acute intra-abdominal process. Patient was recently on Augmentin which could be associated with the symptoms. S possible patient also may have a non radiopaque stone or obstruction not seen on CT. Gastroenterology has been consulted. Patient has transaminases are actually trending down compared to September 01 but bilirubin is elevated. Will repeat CMP in a.m.. The patient has history of hyponatremia with her recent hospitalization that improved with IV fluid hydration. I suspect the patient has had decreased oral intake since her discharge on 08/29/2021. Will resume IV fluid hydration and repeat BMP in a.m.. The patient's hydrochlorothiazide was discontinued during her last hospitalization but this was unfortunately continued on discharge. Will stop hydrochlorothiazide. Patient has chronic sinusitis. Antibiotic use may not be the best in this patient given the chronicity of her symptoms. She may benefit more from antihistamines and Flonase which were started during her last hospitalization. Her symptoms have improved with these measures. I am going to hold off on any further antibiotics at this time. Vaginal candidiasis is that his stay with antibiotic therapy. Patient received 1 dose of fluconazole in the ER. Patient has abnormal UA but results do not overly suggest UTI. Urine cultures pending. Patient has type 2 diabetes mellitus with associated hyperglycemia. Will resum
[2021-09-06 16:33] LABS: Glucose Point of Care 217 mg/dl (65-105)
[2021-09-06 16:34] VITALS: BP 148/70; PULSE 79; RESP 18; TEMP 36.4; O2SAT 98
[2021-09-06 20:24] VITALS: BP 159/69; PULSE 72; RESP 16; TEMP 36.5; O2SAT 98
[2021-09-06 20:50] LABS: Glucose Point of Care 197 mg/dl (65-105)
[2021-09-06 21:31] VITALS: PULSE 72
[2021-09-06] MEDS: INSULIN GLARGINE (*BKC) 100 UNITS/ML 15 UNITS SUB-Q (21:31)
[2021-09-06] MEDS: MICONAZOLE NITRATE 2% VAGINAL CREAM 45 GM TUBE 1 APPFUL VAGINAL (21:32)
[2021-09-06] MEDS: diphenhydrAMINE HCl CAP 25 MG CAPSULE PO (21:42)
[2021-09-07 04:33] VITALS: BP 148/56; PULSE 62; RESP 16; TEMP 36.6; O2SAT 98
[2021-09-07 05:26] LABS: Hematocrit 38.1 % (37.0-47.0); Hemoglobin 12.1 g/dL (12.0-15.0); Mean Corpuscular HGB Conc 31.8 g/dl (32-36); Mean Corpuscular Hemoglobin 30.1 pg (26-34); Mean Corpuscular Volume 94.8 fl (80-100); Mean Platelet Volume 9.8 fl (7.4-10.4); Platelet Count Result 246 k/mm3 (150-375); Red Blood Count 4.02 M/mm3 (4.2-5.4); Red Cell Distribution Width 14.6 % (11.5-14.5)
[2021-09-07 05:44] LABS: Alanine Aminotransferase 626 U/L (4-35); Albumin Level 3.8 g/dL (3.5-5.1); Alkaline Phosphatase 427 U/L (38-126); Anion Gap 5 mmol/L (8-16); Aspartate Amino Transferase 376 U/L (14-36); Bilirubin,Total 2.8 mg/dL (0.2-1.3); Blood Urea Nitrogen 11 mg/dL (7-17); Calcium 8.7 mg/dL (8.4-10.2); Carbon Dioxide 22 mmol/L (22-30); Chloride 105 mmol/L (98-107); Estimated Glomerular Filt Rate > 60; Glucose 154 mg/dL (65-110); Potassium 4.2 mmol/L (3.4-5.0); Sodium 132 mmol/L (137-145)
[2021-09-07 07:37] LABS: Glucose Point of Care 163 mg/dl (65-105)
[2021-09-07] MEDS: ENOXAPARIN 40 MG/0.4 ML SYRINGE SUB-Q (08:31)
[2021-09-07 08:32] VITALS: PULSE 64
[2021-09-07] MEDS: amLODIPine BESYLATE 5 MG TABLET 10 MG PO (08:32)
[2021-09-07] MEDS: LOSARTAN POTASSIUM 100 MG TABLET PO (08:32)
[2021-09-07] MEDS: METOPROLOL TARTRATE 25 MG TABLET PO (08:32)
[2021-09-07] MEDS: FLUTICASONE PROPIONATE 0.05% NA SPR 16 GM BTL (*BKC) 2 SPRAY NASAL (08:32)
[2021-09-07] MEDS: PANTOPRAZOLE 40 MG TABLET PO (08:32)
[2021-09-07 11:45] LABS: Glucose Point of Care 246 mg/dl (65-105)
[2021-09-07] MEDS: INSULIN ASPART (*BKC) 100 UNITS/ML SUB-Q ×2 (12:10→16:43)
--- NOTE | 2021-09-07 13:55 | PM.DS ---
DS: Admitting Diagnosis Discharge Date 09/07/2021 Admitting Diagnosis Nausea, vomiting, itching DS: Discharge Diagnosis Discharge Diagnosis (1) Jaundice: Code(s): R17 - Unspecified jaundice Status: Acute Assessment and Plan: Total Bili level normal on 08/29/21. Bili to 5.1 yesterday. All direct. PT/PTT okay. MRCP showing no intrahepatic or extrahepatic biliary ductal dilation or biliary lesions identified. Jaundice likely related to doxycycline? LFTs and bili levels better and symptoms improved. Pt wants to go home, does not look jaundiced ready to go. (2) Pruritus: Code(s): L29.9 - Pruritus, unspecified Status: Resolved Assessment and Plan: Related to the hyperbilirubinemia. As above (3) Transaminitis: Code(s): R74.01 - Elevation of levels of liver transaminase levels Status: Acute Assessment and Plan: LFTs normal on 08/29 but AST 984, ALT 1024 and AP 312. Levels trending down except AP. MRCP does show hepatic steatosis. Doxycycline can cause hepatotoxicity so would consider this a drug reaction. Levels trending down off the medication. Follow next week by PCP. Alot of medications have been kept on hold until then. (4) Acute hyponatremia: Code(s): E87.1 - Hypo-osmolality and hyponatremia Status: Acute Assessment and Plan: Na 119 here end of July and was 131 at discharge.132 on discharge (5) Vaginal candidiasis: Code(s): B37.3 - Candidiasis of vulva and vagina Status: Acute Assessment and Plan: Patient with symptoms of vaginal candidiasis. She received 1 dose of fluconazole ED. continue to monitor symptoms (6) Abnormal urinalysis: Code(s): R82.90 - Unspecified abnormal findings in urine Status: Acute Assessment and Plan: UA noted. Follow up on UCx. Suspect contaminant so will hold on antibiotics. (7) Type 2 diabetes mellitus with hyperglycemia, without long-term current use of insulin: Code(s): E11.65 - Type 2 diabetes mellitus with hyperglycemia Status: Acute Assessment and Plan: A1c 7.0 in May. The patient's blood glucose was reviewed on 09/04 metformin stopped pt started on lantus. DS: Summary Hospital Course Hospital Course: The patient has hyperbilirubinemia and transaminitis. CT of the abdomen pelvis does not demonstrate an acute intra-abdominal process. Patient was recently on Augmentin which could be associated with the symptoms. S possible patient also may have a non radiopaque stone or obstruction not seen on CT. Gastroenterology has been consulted. Patient has transaminases are actually trending down compared to September 01 but bilirubin is elevated. Will repeat CMP in a.m.. The patient has history of hyponatremia with her recent hospitalization that improved with IV fluid hydration. I suspect the patient has had decreased oral intake since her discharge on 08/29/2021. Will resume IV fluid hydration and repeat BMP in a.m.. The patient's hydrochlorothiazide was discontinued during her last hospitalization but this was unfortunately continued on discharge. Will stop hydrochlorothiazide. Patient has chronic sinusitis. Antibiotic use may not be the best in this patient given the chronicity of her symptoms. She may benefit more from antihistamines and Flonase which were started during her last hospitalization. Her symptoms have improved with these measures. I am going to hold off on any further antibiotics at this time. Vaginal candidiasis is that his stay with antibiotic therapy. Patient received 1 dose of fluconazole in the ER. Patient has abnormal UA but results do not overly suggest UTI. Patient has type 2 diabetes mellitus with associated hyperglycemia. Pt medications on hold pt started on lantus on discharge, as lfts are high, pt can restart her mediations soon after rpt blood test in PCP office. Time Spent with Patient Time attestation: Total t
[2021-09-07 14:00] VITALS: BP 161/60; PULSE 71; RESP 22; TEMP 35.7; O2SAT 98
[2021-09-07 15:30] VITALS: BMI 39.6
[2021-09-07 16:00] LABS: Glucose Point of Care 279 mg/dl (65-105)
[2021-09-11 12:01] LABS: Anti Nuclear Antibody Pattern Nuclear, Nucleolar; Anti Nuclear Antibody Titer 1:40 (Negative)
--- NOTE | 2021-09-12 07:41 | PC.NURSE ---
Faxed Initial DSMT and [facility].
== END 2021-09-07 17:20 | disposition home health service (06) | DRG 442 ==
LOC: ANHED 17:24 → ANH3MED 17:49
PROVIDERS: Internal Medicine; Internal Medicine Gastroenterology; Physician Assistant; Student in an Organized Health Care Education/Training Program; Admitting Provider Family Medicine; Emergency Provider Emergency Medicine; PCP Family Medicine; Visit Provider Family Medicine
DX: R17 Unspecified jaundice (principal); E87.1 Hypo-osmolality and hyponatremia; T36.4X5A Adverse effect of tetracyclines, initial encounter; L29.8 Other pruritus; B37.3 Candidiasis of vulva and vagina; R82.90 Unspecified abnormal findings in urine; E11.65 Type 2 diabetes mellitus with hyperglycemia; E66.01 Morbid (severe) obesity due to excess calories; Z68.39 Body mass index [BMI] 39.0-39.9, adult; E11.319 Type 2 diabetes mellitus with unspecified diabetic retinopathy without macular edema; I25.10 Atherosclerotic heart disease of native coronary artery without angina pectoris; H35.30 Unspecified macular degeneration; I10 Essential (primary) hypertension; K21.9 Gastro-esophageal reflux disease without esophagitis; K44.9 Diaphragmatic hernia without obstruction or gangrene; Z98.42 Cataract extraction status, left eye; Z98.41 Cataract extraction status, right eye; Z96.1 Presence of intraocular lens; Z96.642 Presence of left artificial hip joint; E78.5 Hyperlipidemia, unspecified; J32.9 Chronic sinusitis, unspecified; K80.50 Calculus of bile duct without cholangitis or cholecystitis without obstruction
CPT/HCPCS: 36415; 74176; 74183; 76376; 76705; 80053; 80074; 81001; 82248; 82533; 82570; 82948; 83036; 83690; 84295; 84300; 84439; 84443; 84480; 85025; 85027; 85055; 85610; 85730; 86038; 86039; 87086; 87088; 96361; 96372; 96374; 96375; 99284; 99285; A9270; A9577; G0378; J1200; J1650; J1815; J2930; J7030

== ENCOUNTER 2021-10-24 07:59 | Outpatient (CLI) | payer MEDICARE, SELFPAY ==
[2021-10-24 08:39] LABS: Alanine Aminotransferase 25 U/L (6-35); Albumin Level 4.1 g/dL (3.5-5.1); Alkaline Phosphatase 105 U/L (38-126); Anion Gap 6 mmol/L (8-16); Aspartate Amino Transferase 32 U/L (14-36); Bilirubin,Total 0.8 mg/dL (0.2-1.3); Blood Urea Nitrogen 13 mg/dL (7-17); Calcium 9.1 mg/dL (8.4-10.2); Carbon Dioxide 28 mmol/L (22-30); Chloride 105 mmol/L (98-107); Estimated Glomerular Filt Rate 60; Glucose 173 mg/dL (65-110); Potassium 4.4 mmol/L (3.4-5.0); Sodium 139 mmol/L (137-145)
== END 2021-10-24 08:00 | disposition home or self-care (01) ==
LOC: ANHLAB 08:02
PROVIDERS: PCP Family Medicine; Visit Provider Family Medicine
DX: E11.65 Type 2 diabetes mellitus with hyperglycemia (principal); R17 Unspecified jaundice
CPT/HCPCS: 36415; 80053

== ENCOUNTER 2022-05-28 12:44 | Emergency (ER) | payer MEDICARE, SELFPAY ==
--- NOTE | ~2022-05-28 | XR_ITS ---
EXAMINATION: XR hip LT 2V w AP pelvis INDICATION: Left hip pain TECHNIQUE: AP view the pelvis and two views of the left hip are obtained. 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 Bone alignment is normal. No acu te fracture is identified. There is severe lower lumbar spondylosis. The soft tissues are unremarkabl e. IMPRESSION: 1. No acute osseous abnormality. Reviewed, dictated and finalized at location L. 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
--- NOTE | ~2022-05-28 | US_ITS ---
EXAMINATION: US venous doppler [facility] DATE: 05/28/2022 15:10 INDICATION: Left limb runs and swelling TECHNIQUE: Broderick scale images without and with compression and Doppler images of the left lower extrem ity veins were obtained. COMPARISON: 10/23/2018 FINDINGS: The left common femoral vein, profunda femoral vein, femoral vein, popliteal vein, peroneal trunk, posterior tibial veins, and greater saphenous vein are patent. IMPRESSION: 1. Patent left lower extremity veins. No evidence of deep venous thrombosis. Reviewed, dictated and finalized at location L. 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
[2022-05-28 12:51] VITALS: BP 171/89; PULSE 81; RESP 16; TEMP 36.6; O2SAT 98
--- NOTE | 2022-05-28 14:41 | ED.EXTPRO ---
HPI - Extremity Problem General Chief complaint: Extremity Problem,Nontraumatic Stated complaint: L hip pain Time Seen by Provider: 05/28/22 14:15 History of Present Illness HPI Narrative: 81-year-old female here for evaluation of left hip and calf pain for the past several days. Patient states that she fell about a month ago after tripping on a carpet but was not having hip pain after the fall. This pain is atraumatic, starts in her hip and will occasionally radiate down her leg. Also notes a concentrated pain in her calf. She has been able to walk with a walker but she states it is painful. Attempted 1 ibuprofen and 1 Tylenol with transient relief of her symptoms, has not taken anything today. 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 No numbness, tingling, weakness. Related Data Home Medications Medication Instructions Recorded Confirmed omeprazole magnesium 20 mg 20 mg PO DAILY 04/15/19 02/12/22 tablet,delayed release (Prilosec OTC) losartan 100 mg tablet 100 mg PO DAILY 09/12/21 02/12/22 Allergies Allergy/AdvReac Type Severity Reaction Status Date / Time Iodinated Contrast Media Allergy Severe Itching Verified 05/28/22 14:54 lutein Allergy Unknown Nausea,Nausea Verified 05/28/22 14:54 and Vomiting amoxicillin [From Augmentin] Allergy Itching Verified 05/28/22 14:54 clavulanic acid Allergy Itching Verified 05/28/22 14:54 [From Augmentin] codeine AdvReac Severe Abdominal Verified 05/28/22 14:54 Pain folic acid AdvReac Mild Nausea and Verified 05/28/22 14:54 Vomiting bumetanide AdvReac Unknown Nausea and Verified 05/28/22 14:54 Vomiting carvedilol AdvReac Unknown Nausea and Verified 05/28/22 14:54 Vomiting chlorthalidone AdvReac Unknown Nausea Verified 05/28/22 14:54 empagliflozin AdvReac Unknown UTI'S Verified 05/28/22 14:54 [From Jardiance] esomeprazole AdvReac Unknown Nausea and Verified 05/28/22 14:54 Vomiting estrogens, conjugated AdvReac Unknown Nausea and Verified 05/28/22 14:54 Vomiting fexofenadine AdvReac Unknown Nausea and Verified 05/28/22 14:54 Vomiting hydrocodone AdvReac Unknown Nausea and Verified 05/28/22 14:54 Vomiting indapamide AdvReac Unknown Nausea and Verified 05/28/22 14:54 Vomiting lansoprazole AdvReac Unknown Nausea and Verified 05/28/22 14:54 Vomiting lisinopril AdvReac Unknown Nausea and Verified 05/28/22 14:54 Vomiting medroxyprogesterone AdvReac Unknown Nausea and Verified 05/28/22 14:54 Vomiting Sulfa (Sulfonamide AdvReac Unknown Nausea and Verified 05/28/22 14:54 Antibiotics) Vomiting tramadol AdvReac Unknown Nausea and Verified 05/28/22 14:54 Vomiting triamterene AdvReac Unknown Nausea and Verified 05/28/22 14:54 Vomiting DARIFENACIN HYDROBROMIDE AdvReac Mild Nausea and Uncoded 05/28/22 14:54 Vomiting LUTEIN AdvReac Mild Nausea and Uncoded 05/28/22 14:54 Vomiting MEDROXYPROGESTERONE ACETATE AdvReac Mild Nausea and Uncoded 05/28/22 14:54 Vomiting MULTIVITAMIN W-MINERALS AdvReac Mild Nausea and Uncoded 05/28/22 14:54 Vomiting SOLIFENACIN SUCCINATE AdvReac Mild Nausea and Uncoded 05/28/22 14:54 Vomiting LYCOPENE AdvReac Unknown Nausea and Uncoded 05/28/22 14:54 Vomiting PMFSH Past Medical History Medical History 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
[2022-05-28 14:48] VITALS: BP 198/78; PULSE 65; TEMP 36.1; O2SAT 99
[2022-05-28] MEDS: MELOXICAM 7.5 MG TABLET PO (14:52)
--- NOTE | 2022-05-28 14:55 | PC.NURSE ---
PT TO U/S VIA W/C AT THIS TIME, SPOUSE WAITING AT BEDSIDE.
== END 2022-05-28 15:40 | disposition home or self-care (01) ==
PROVIDERS: Emergency Provider Physician Assistant; PCP Family Medicine
DX: M79.605 Pain in left leg (principal); I25.10 Atherosclerotic heart disease of native coronary artery without angina pectoris; K21.9 Gastro-esophageal reflux disease without esophagitis; I11.0 Hypertensive heart disease with heart failure; I50.9 Heart failure, unspecified; E11.319 Type 2 diabetes mellitus with unspecified diabetic retinopathy without macular edema
CPT/HCPCS: 73502; 93971; 99284; A9270

== ENCOUNTER 2022-05-31 11:32 | Emergency (ER) | payer MEDICARE, SELFPAY ==
[2022-05-31 12:01] VITALS: BP 140/70; PULSE 62; RESP 18; TEMP 36.6; O2SAT 98
--- NOTE | 2022-05-31 12:53 | ED.LOWEXIN ---
HPI - Extremity Injury (Lower) General Chief Complaint: Extremity Injury, Lower Stated Complaint: left hip pain Time Seen by Provider: 05/31/22 12:06 History of Present Illness HPI Narrative: Patient is a 81-year-old female who presents ER with left-sided sciatica. Diagnosed a couple days ago in the ER. Has been having pain has been worsening over the last 5 to 6 weeks after a fall. No saddle anesthesia or difficulty with urination/defecation. Reports she drank some prune juice this morning and had a impressive bowel movement. She reports radiation of pain from low back down to her left leg. She is feels follow-up with her PCP next month. She has been taking Tylenol and ibuprofen without improvement. Reports it is hard for her to sleep and she needs something stronger. Patient walks with a walker at home. No additional falls. Related Data Home Medications Medication Instructions Recorded Confirmed omeprazole magnesium 20 mg 20 mg PO DAILY 04/15/19 02/12/22 tablet,delayed release (Prilosec OTC) losartan 100 mg tablet 100 mg PO DAILY 09/12/21 02/12/22 Allergies Allergy/AdvReac Type Severity Reaction Status Date / Time Iodinated Contrast Media Allergy Severe Itching Verified 05/28/22 14:54 lutein Allergy Unknown Nausea,Nausea Verified 05/28/22 14:54 and Vomiting amoxicillin [From Augmentin] Allergy Itching Verified 05/28/22 14:54 clavulanic acid Allergy Itching Verified 05/28/22 14:54 [From Augmentin] codeine AdvReac Severe Abdominal Verified 05/28/22 14:54 Pain folic acid AdvReac Mild Nausea and Verified 05/28/22 14:54 Vomiting bumetanide AdvReac Unknown Nausea and Verified 05/28/22 14:54 Vomiting carvedilol AdvReac Unknown Nausea and Verified 05/28/22 14:54 Vomiting chlorthalidone AdvReac Unknown Nausea Verified 05/28/22 14:54 empagliflozin AdvReac Unknown UTI'S Verified 05/28/22 14:54 [From Jardiance] esomeprazole AdvReac Unknown Nausea and Verified 05/28/22 14:54 Vomiting estrogens, conjugated AdvReac Unknown Nausea and Verified 05/28/22 14:54 Vomiting fexofenadine AdvReac Unknown Nausea and Verified 05/28/22 14:54 Vomiting hydrocodone AdvReac Unknown Nausea and Verified 05/28/22 14:54 Vomiting indapamide AdvReac Unknown Nausea and Verified 05/28/22 14:54 Vomiting lansoprazole AdvReac Unknown Nausea and Verified 05/28/22 14:54 Vomiting lisinopril AdvReac Unknown Nausea and Verified 05/28/22 14:54 Vomiting medroxyprogesterone AdvReac Unknown Nausea and Verified 05/28/22 14:54 Vomiting Sulfa (Sulfonamide AdvReac Unknown Nausea and Verified 05/28/22 14:54 Antibiotics) Vomiting tramadol AdvReac Unknown Nausea and Verified 05/28/22 14:54 Vomiting triamterene AdvReac Unknown Nausea and Verified 05/28/22 14:54 Vomiting DARIFENACIN HYDROBROMIDE AdvReac Mild Nausea and Uncoded 05/28/22 14:54 Vomiting LUTEIN AdvReac Mild Nausea and Uncoded 05/28/22 14:54 Vomiting MEDROXYPROGESTERONE ACETATE AdvReac Mild Nausea and Uncoded 05/28/22 14:54 Vomiting MULTIVITAMIN W-MINERALS AdvReac Mild Nausea and Uncoded 05/28/22 14:54 Vomiting SOLIFENACIN SUCCINATE AdvReac Mild Nausea and Uncoded 05/28/22 14:54 Vomiting LYCOPENE AdvReac Unknown Nausea and Uncoded 05/28/22 14:54 Vomiting Review of Systems Review of Systems: All systems reviewed & are unremarkable except as noted in HPI and below Constitutional: Constitutional: Denies chills, Denies fatigue and Denies fever(s) Gastrointestinal: Gastrointestinal: Denies abdominal pain, Denies constipation, Denies nausea and Denies vomiting Genitourinary: Genitourinary: Denies nocturia, Denies dysuria and Denies urinary incontinence Musculoskeletal: Musculoskeletal: Reports back pain, Denies myalgias, Reports arthralgias and Denies joint swelling Neurologic: Denies focal weakness, Denies numbness and Denies weakness PMFSH Past Medical History Medical Histo
[2022-05-31] MEDS: HYDROcodone/acetaminophen (*CRX) 5-325 MG TABLET 1 TAB PO (12:54)
== END 2022-05-31 13:34 | disposition home or self-care (01) ==
PROVIDERS: Emergency Provider Emergency Medicine; PCP Family Medicine
DX: M54.42 Lumbago with sciatica, left side (principal); I25.10 Atherosclerotic heart disease of native coronary artery without angina pectoris; E11.319 Type 2 diabetes mellitus with unspecified diabetic retinopathy without macular edema; H35.3134 Nonexudative age-related macular degeneration, bilateral, advanced atrophic with subfoveal involvement; I11.9 Hypertensive heart disease without heart failure; E78.00 Pure hypercholesterolemia, unspecified; K21.9 Gastro-esophageal reflux disease without esophagitis; E66.9 Obesity, unspecified; Z68.38 Body mass index [BMI] 38.0-38.9, adult; Z96.642 Presence of left artificial hip joint; Z79.84 Long term (current) use of oral hypoglycemic drugs
CPT/HCPCS: 99283; A9270

== ENCOUNTER 2023-01-22 15:18 | Observation (INO) | payer MEDICARE, SELFPAY ==
[2023-01-22] VITALS (10 sets, daily range): BP systolic 133–188; BP diastolic 56–77; PULSE 56–65; RESP 14–20; TEMP 36.2–36.6; O2SAT 96–100; BMI 36.5; BMI 36.6
--- NOTE | ~2023-01-22 | XR_ITS ---
EXAMINATION: XR chest 2V DATE: 01/22/2023 15:55 INDICATION: Left-sided chest pain TECHNIQUE: AP and lateral views of the chest are obtained. COMPARISON: 08/27/2021 FINDINGS: The lungs are free of acute opacities. No pleural effusion or pneumothorax. The cardiomedia stinal silhouette is normal. There is moderate thoracic spondylosis. IMPRESSION: 1. No acute cardiopulmonary abnormality. Reviewed, dictated and finalized at location A.
--- NOTE | 2023-01-22 15:18 | ECG_ITS ---
Measurements Intervals [place] Rate: 60 P: 66 MA: 200 QRS: -32 QRSD: 111 T: 31 QT: 421 QTc: 422 Interpretive Statements SINUS RHYTHM LEFT AXIS DEVIATION [QRS AXIS < -30] VOLTAGE CRITERIA FOR LVH NONSPECIFIC T-WAVE ABNORMALITY COMPARED TO ECG 08/28/2021 09:58:32 NO SIGNIFICANT CHANGE Electronically Signed On 01-22-2023 17:19:42 CDT by Anuja Howell M.D.
[2023-01-22 15:56] LABS: INR 0.9; Prothrombin Time 12.5 Seconds (11.1-14.7)
[2023-01-22 15:57] LABS: Partial Thromboplastin Time 21.5 SECONDS (22.3-36.8)
[2023-01-22 16:43] LABS: Basophils Percent Auto 0.4 % (0.2-1.2); Eosinophils Absolute Auto 0.2 K/mm3 (0-0.3); Eosinophils Percent Auto 2.9 % (0-4.4); Hematocrit 39.5 % (37.0-47.0); Hemoglobin 13.4 g/dL (12.0-15.0); Immature Granulocyte Absolute 0.02 K/mm3 (0.00-0.031); Immature Granulocyte Percent A 0.3 % (0-0.5); Lymphocytes Absolute Auto 1.64 K/mm3 (0.9-3.2); Lymphocytes Percent Auto 22.6 % (18.3-44.2); Mean Corpuscular HGB Conc 33.9 g/dl (32-36); Mean Corpuscular Hemoglobin 30.2 pg (26-34); Mean Corpuscular Volume 89.2 fl (80-100); Mean Platelet Volume 9.6 fl (7.4-10.4); Monocytes Absolute Auto 0.6 K/mm3 (0.1-0.6); Monocytes Percent Auto 8.3 % (2.6-8.5); Neutrophils Absolute Auto 4.8 K/mm3 (1.3-6.7); Neutrophils Percent Auto 65.5 % (45.5-73.1); Platelet Count Result 303 k/mm3 (150-375); Red Blood Count 4.43 M/mm3 (4.2-5.4); Red Cell Distribution Width 12.5 % (11.5-14.5); White Blood Count 7.3 K/mm3 (4.5-10.0)
[2023-01-22 16:54] LABS: Alanine Aminotransferase 25 U/L (6-35); Albumin Level 4.3 g/dL (3.5-5.1); Alkaline Phosphatase 83 U/L (38-126); Anion Gap 10 mmol/L (8-16); Aspartate Amino Transferase 28 U/L (14-36); Bilirubin,Total 0.5 mg/dL (0.2-1.3); Blood Urea Nitrogen 17 mg/dL (7-17); Calcium 9.1 mg/dL (8.4-10.2); Carbon Dioxide 21 mmol/L (22-30); Chloride 99 mmol/L (98-107); Estimated Glomerular Filt Rate > 60; Glucose 143 mg/dL (65-110); Lipase 69 U/L (23-300); Potassium 4.6 mmol/L (3.4-5.0); Sodium 130 mmol/L (137-145)
[2023-01-22 17:06] LABS: Troponin I < 0.012 ng/mL (0.000-0.034)
--- NOTE | 2023-01-22 17:45 | ED.CHESTPAIN ---
HPI - Chest Pain General Chief Complaint: Chest Pain <JENNIE Gustafson Last Filed: 01/22/23 20:11> Stated Complaint: chest pain <JENNIE Gustafson Last Filed: 01/22/23 20:11> Time Seen by Provider: 01/22/23 16:02 <JENNIE Gustafson Last Filed: 01/22/23 20:11> Source: patient <JENNIE Gustafson Last Filed: 01/22/23 20:11> Mode of arrival: ambulatory <JENNIE Gustafson Last Filed: 01/22/23 20:11> Limitations: no limitations <JENNIE Gustafson Last Filed: 01/22/23 20:11> History of Present Illness HPI narrative: Patient is an 82-year-old female who presents to the ED with report of chest pain. Patient reports she has had intermittent left-sided chest pain over the last few days. She states it has occurred at night briefly the last 3 nights. The pain became more frequent this afternoon around 1 PM. She states the pain lasts for a second or two before resolving on its own. Denies any significant aggravating or alleviating factors. Denies aggravation with exertion. Denies pleuritic pain. Denies shortness of breath, nausea, abdominal pain, recent cough or cold symptoms, lower extremity pain or swelling. Patient has history of hypertension, hyperlipidemia, diabetes. Denies previous history of CAD. <JENNIE Gustafson Last Filed: 01/22/23 20:11> Related Data Home Medications: Home Medications Medication Instructions Recorded Confirmed omeprazole magnesium 20 mg 20 mg PO DAILY 04/15/19 12/30/22 tablet,delayed release (Prilosec OTC) <JENNIE Gustafson Last Filed: 01/22/23 20:11> Allergies/Adverse Reactions: Allergies Allergy/AdvReac Type Severity Reaction Status Date / Time Iodinated Contrast Media Allergy Severe Itching Verified 12/30/22 13:39 lutein Allergy Unknown Nausea,Nausea Verified 12/30/22 13:39 and Vomiting amoxicillin [From Augmentin] Allergy Itching Verified 12/30/22 13:39 clavulanic acid Allergy Itching Verified 12/30/22 13:39 [From Augmentin] codeine AdvReac Severe Abdominal Verified 12/30/22 13:39 Pain folic acid AdvReac Mild Nausea and Verified 12/30/22 13:39 Vomiting hydrochlorothiazide AdvReac Mild Gastrointestinal Verified 12/30/22 13:39 Upset bumetanide AdvReac Unknown Nausea and Verified 12/30/22 13:39 Vomiting carvedilol AdvReac Unknown Nausea and Verified 12/30/22 13:39 Vomiting chlorthalidone AdvReac Unknown Nausea Verified 12/30/22 13:39 empagliflozin AdvReac Unknown UTI'S Verified 12/30/22 13:39 [From Jardiance] esomeprazole AdvReac Unknown Nausea and Verified 12/30/22 13:39 Vomiting estrogens, conjugated AdvReac Unknown Nausea and Verified 12/30/22 13:39 Vomiting fexofenadine AdvReac Unknown Nausea and Verified 12/30/22 13:39 Vomiting hydrocodone AdvReac Unknown Nausea and Verified 12/30/22 13:39 Vomiting indapamide AdvReac Unknown Nausea and Verified 12/30/22 13:39 Vomiting lansoprazole AdvReac Unknown Nausea and Verified 12/30/22 13:39 Vomiting lisinopril AdvReac Unknown Nausea and Verified 12/30/22 13:39 Vomiting medroxyprogesterone AdvReac Unknown Nausea and Verified 12/30/22 13:39 Vomiting Sulfa (Sulfonamide AdvReac Unknown Nausea and Verified 12/30/22 13:39 Antibiotics) Vomiting tramadol AdvReac Unknown Nausea and Verified 12/30/22 13:39 Vomiting triamterene AdvReac Unknown Nausea and Verified 12/30/22 13:39 Vomiting DARIFENACIN HYDROBROMIDE AdvReac Mild Nausea and Uncoded 12/30/22 13:39 Vomiting hctz AdvReac Mild dizzy Uncoded 12/30/22 13:39 LUTEIN AdvReac Mild Nausea and Uncoded 12/30/22 13:39 Vomiting MEDROXYPROGESTERONE ACETATE AdvReac Mild Nausea and Uncoded 12/30/22 13:39 Vomiting MULTIVITAMIN W-MINERALS AdvReac Mild Nausea and Uncoded 12/30/22 13:39 Vomiting SOLIFENACIN SUCCINATE AdvReac Mild Nausea and Uncoded
[2023-01-22 20:01] LABS: Troponin I < 0.012 ng/mL (0.000-0.034)
--- NOTE | 2023-01-22 21:20 | PC.NURSE ---
pt denies any cp after the nitro. pt has no complaints at this time.
--- NOTE | 2023-01-22 21:55 | ADMGEN ---
This patient, Liliya Bernstein, was admitted to IMU Room 203-01. Patient/family oriented to hospital policies and general routines including ID bracelet, bed and alarms, visiting hours, pain management, procedures, bathroom and other care routines, personal items, smoking policy, room service/diet, and visiting hours. Information on how to activate the Rapid Response Team has been discussed. Patient/Family are encouraged to report perceived risks to care and to ask questions if they do not understand what they are told or what they should do.
[2023-01-22 22:08] LABS: Glucose Point of Care 255 mg/dl (65-105)
[2023-01-23] VITALS (9 sets, daily range): BP systolic 140–155; BP diastolic 56–67; PULSE 53–87; RESP 16–18; TEMP 36.1–36.6; O2SAT 94–100
--- NOTE | 2023-01-23 | EST_ITS ---
Patient Info Name: Liliya Bernstein Age: 82 years : 1940 Gender: Female Ht: 58 in Wt: 176 lbs BSA: 1.85 m2 Technical Quality: Good Exam Date: 01/23/2023 2:04 PM Exam Location: [facility] Pulmonary Patient Status: Inpatient Admit Date: 01/22/2023 Staff Ordering Physician: Tory Astudillo PA-C Attending Provider: Alex Schneider MD Referring Physician: Wilda PARKER; Exercise Technologist: Phyllis Fernandez RDCS Exercise Physician: Anuja Howell MD Exam Type: CA dobutamine stress echo Study Info Indications R07.9 - Chest pain, unspecified A dobutamine stress test was performed. Summary 1. The patient underwent dobutamine stress echo testing with the infusion of dobutamine starting at 10 mcg/kg/min and after 2 minutes increasing to 20 mcg/kg/per minute. She reached her target heart rate of 97% of predicted maximal heart rate. She had no chest pain. There were no EKG changes. Imaging was obtained at rest, low dose, peak dose and recovery. Resting echo images showed moderate left atrial enlargement, moderate mitral annular calcification, moderate left ventricular hypertrophy with good systolic function of all segments estimated ejection fraction of 60%. There was mild hypokinesis of the basal inferior segment at rest, which did not change w/ dobutamine infusion. With peak imaging there were no dobutamine induced wall motion abnormalities and there is hyperdynamic left ventricular function. She had a hypertensive blood pressure response. Esmolol 50 mg was given at the completion of the test to reduce heart rate and blood pressure to baseline. 2. Negative dobutamine stress echo for inducible ischemia. Protocol: Doubutamine Stress ECG Details Stage: REST Duration (min): 1 min : 21 sec Lujan: --- Speed (mph): 0.0 Grade (%): 0 HR (bpm): 63 SBP (mmHg): 151 DBP (mmHg): 67 METS: --- Stage: REST Duration (min): 22 min : 23 sec Lujan: --- Speed (mph): 0.0 Grade (%): 0 HR (bpm): 63 SBP (mmHg): 151 DBP (mmHg): 67 METS: --- Stage: STAGE 1 Duration (min): 1 min : 0 sec Lujan: --- Speed (mph): 0.0 Grade (%): 0 HR (bpm): 60 SBP (mmHg): 151 DBP (mmHg): 67 METS: --- Stage: STAGE 1 Duration (min): 2 min : 0 sec Lujan: --- Speed (mph): 0.0 Grade (%): 0 HR (bpm): 67 SBP (mmHg): 151 DBP (mmHg): 67 METS: --- Stage: STAGE 1 Duration (min): 3 min : 0 sec Luajn: --- Speed (mph): 0.0 Grade (%): 0 HR (bpm): 83 SBP (mmHg): 170 DBP (mmHg): 41 METS: --- Stage: STAGE 2 Duration (min): 1 min : 0 sec Lujan: --- Speed (mph): 0.0 Grade (%): 0 HR (bpm): 103 SBP (mmHg): 170 DBP (mmHg): 41 METS: --- Stage: STAGE 2 Duration (min): 2 min : 0 sec Lujan: --- Speed (mph): 0.0 Grade (%): 0 HR (bpm): 117 SBP (mmHg): 170 DBP (mmHg): 41 METS: --- Stage: STAGE 2 Duration (min): 3 min : 0 sec Lujan: --- Speed (mph): 0.0 Grade (%): 0 HR (bpm): 130 SBP (mmHg): 170 DBP (mmHg): 41 METS: --- Stage: STAGE 3 Duration (min): 1 min : 0 sec Lujan: --- Speed (mph): 0.0 Grade (%): 0 HR (bpm): 129 SBP (mmHg): 255 DB
--- NOTE | 2023-01-23 01:03 | PM.IMHP ---
H&P: HPI History of Present Illness Date/Time: 01/23/23 01:03 Chief Complaint: CHEST PAIN Narrative: THIS IS AN 82-YEAR-OLD FEMALE WITH PAST MEDICAL HISTORY SIGNIFICANT FOR OBESITY, HYPERTENSION, TYPE DIABETES MELLITUS, MACULAR DEGENERATION, KNOWN OCCLUSIVE CORONARY ARTERY DISEASE, HYPERCHOLESTEROLEMIA. PATIENT PRESENTS TO THE EMERGENCY ROOM DUE TO CHEST PAIN ON AND OFF FOR THE LAST 4 DAYS OR SO RELIEVED BY ASPIRIN IS BROUGHT DOES NOT APPEAR TO HAVE ANY WORSENING OR RELIEVING FACTORS IS LOCALIZED TO THE PRECORDIAL AREA NONRADIATING TO SHOW OR SHOULDER OR ARM, NO ACCOMPANYING SYMPTOMS NO NAUSEA NO VOMITING NO LIGHTHEADEDNESS NO SYNCOPE OR NEAR-SYNCOPE, NO COUGH, NO SHORTNESS OF BREATH NO SPUTUM PRODUCTION NO FEVERS NO RIGORS NO CHILLS, IS NONREPRODUCIBLE ON PHYSICAL EXAM. PATIENT HAS BEEN HER USUAL STATE OF HEALTH UP UNTIL THIS POINT. PRELIMINARY WORKUP HAS BEEN ESSENTIALLY NONREVEALING. PATIENT HAD A 2ND EPISODE OF CHEST PAIN IN THE EMERGENCY ROOM. DECISION HAS BEEN MADE TO PLACE THE PATIENT IN OBSERVATION FOR FURTHER EVALUATION MANAGEMENT AND TREATMENT. EXAMINATION: XR chest 2V DATE: 01/22/2023 15:55 INDICATION: Left-sided chest pain TECHNIQUE: AP and lateral views of the chest are obtained. COMPARISON: 08/27/2021 FINDINGS: The lungs are free of acute opacities. No pleural effusion or pneumothorax. The cardiomediastinal silhouette is normal. There is moderate thoracic spondylosis. IMPRESSION: 1. No acute cardiopulmonary abnormality. EKG Rate 60 [place] 200 QRSd 111 QT 421 QTc 422 --[place]-- P 66 QRS -32 T 31 SINUS RHYTHM LEFT AXIS DEVIATION [QRS AXIS < -30] VOLTAGE CRITERIA FOR LVH NONSPECIFIC T-WAVE ABNORMALITY COMPARED TO ECG 08/28/2021 09:58:32 NO SIGNIFICANT CHANGE Electronically Signed On 01-22-2023 17:19:42 CDT by Anuja Mueller Review of Systems Review of Systems: RETROSTERNAL CHEST PAIN ON AND OFF FOR 2 DAYS Constitutional: Constitutional: Denies chills, Denies fatigue, Denies fever(s), Denies lethargy, Denies malaise and Denies night sweats Eyes: Eyes: Denies change in vision ENT: Denies vertigo, Denies dizziness, Denies headache(s) and Denies odynophagia Cardiovascular: Cardiovascular: Reports chest pain, Reports chest pain at rest, Denies syncope, Denies pedal edema, Denies leg edema, Denies lightheadedness, Denies radiating jaw, neck or arm pain, Denies palpitations, Denies dyspnea on exertion and Denies orthopnea Respiratory: Respiratory: Denies chest congestion and Denies cough Gastrointestinal: Gastrointestinal: Denies abdominal pain, Denies dyspepsia, Denies heartburn, Denies diarrhea, Denies nausea and Denies vomiting Genitourinary: Genitourinary: Denies dysuria Musculoskeletal: Musculoskeletal: Denies myalgias, Denies arthralgias and Denies joint swelling Integumentary/Breasts: Skin/Breast: Denies rash Neurologic: Denies dizziness, Denies focal weakness and Denies Sensory deficit (Neuro) Psychiatric: Psychiatric: Reports no additional psychiatric complaints and Reports as per HPI Endocrine: Endocrine: Denies cold intolerance, Denies excessive sweating, Denies heat intolerance, Denies polyphagia, Denies polyuria and Denies palpitations Hematologic/Lymphatic: Hematologic/Lymphatic: Reports no additional hematologic/lymphatic complaints and Reports as per HPI Allergic/Immunologic: Allergic/Immunologic: Reports no additional allergic/immunologic complaints and Reports as per HPI PMFSH Past Medical History Medical History 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
--- NOTE | 2023-01-23 08:34 | PM.CNCAR ---
Assessment and Plan Assessment and plan (1) Chest pain: Code(s): R07.9 - Chest pain, unspecified Status: Acute Assessment and Plan: Highly atypical chest discomfort. EKG without ischemic changes. Normal troponins. Cardiac catheterization in 2019 did not show any obstructive disease. Likely musculoskeletal. --however, dobutamine stress echo has been ordered by emergency room and Dr. Bernstein for further evaluation. Hold metoprolol for this. (2) Essential hypertension: Code(s): I10 - Essential (primary) hypertension Status: Acute Assessment and Plan: Blood pressure high although the patient has not received her meds yet today. (3) Acute hyponatremia: Code(s): E87.1 - Hypo-osmolality and hyponatremia Status: Acute Assessment and Plan: Workup per hospitalist (4) Hyperlipidemia associated with type 2 diabetes mellitus: Code(s): E11.69 - Type 2 diabetes mellitus with other specified complication; E78.5 - Hyperlipidemia, unspecified Status: Acute Assessment and Plan: LDL cholesterol is 156 in June 2022. Not on a statin though does have diabetes. --consider moderate dose statin therapy. History of Present Illness History of Present Illness Consult date/time: 01/23/23 08:34 Reason For Visit: L Sided Chest Pain,Heart Score 4 Narrative: Liliya Bernstein is an 82 y.o. female whom we were asked to see at the request of Dr. Wilhelm for our advice and opinion regarding her chest pain, in consultation. The patient is followed by Dr. Hernandez for her history of hypertension, diabetes hyperlipidemia. Ms. Bernstein relates having intermittent chest pain for the last 4 days. These clinching chest pain would occur at night after she went to bed and would ?hit in go away. ? Lasted for 1-2 seconds, a couple episodes each evening and she took an aspirin and chest pains would not come back. However yesterday starting around 130 she had episodes again that would come and go lasting for a couple seconds. She came to the emergency room and apparently after she had dinner she had an episode that lingered, and was given nitroglycerin with relief. She has had no further problems. Nonpleuritic, nonpositional, nontender, no associated symptoms c, no unusual physical activity this week. In 2019 the patient had chest discomfort and an abnormal stress test which showed a moderate-sized anterior septal defect consistent with ischemia, EF 75%. Her heart catheterization showed no obstructive coronary disease. She was last seen in July 2022 doing well. Troponins normal x2. EKG: Normal sinus rhythm rate 60, left axis deviation, LVH, no ischemic changes (personally reviewed) Chest x-ray: No acute cardiopulmonary abnormality. Personally reviewed, agree. Sodium 130. Review of Systems Constitutional: Constitutional: Denies fever(s) Eyes: Eyes: Reports no additional eye complaints ENT: Denies epistaxis Cardiovascular: Cardiovascular: Reports chest pain (As described, on admission), Denies pedal edema, Denies lightheadedness and Denies dyspnea Respiratory: Respiratory: Denies chest congestion, Denies dyspnea and Reports dyspnea on exertion (Trouble going up and down stairs) Gastrointestinal: Gastrointestinal: Denies abdominal pain and Denies hematochezia Genitourinary: Genitourinary: Denies hematuria Musculoskeletal: Musculoskeletal: Reports no additional musculoskeletal complaints and Reports back pain (Sciatica, has resolved) Integumentary/Breasts: Skin/Breast: Reports system reviewed and no additional complaints, except as docu Neurologic: Reports system reviewed and no additional complaints, except as documented and Denies behavioral changes Psychiatric: Psychiatric: Denies behavioral changes [facility] Past Medical History Medical History (Updated 01/23/23 @ 09:13 by Anuja Howell MD) Advanced dry age-related macular degeneration of both eyes with subfoveal
[2023-01-23 08:44] LABS: Glucose Point of Care 151 mg/dl (65-105)
[2023-01-23] MEDS: ASPIRIN 81 MG CHEWABLE TABLET PO (09:25)
[2023-01-23] MEDS: LOSARTAN POTASSIUM 50 MG TABLET PO (09:28)
[2023-01-23] MEDS: ENOXAPARIN 40 MG/0.4 ML SYRINGE SUB-Q (09:28)
[2023-01-23] MEDS: PANTOPRAZOLE 40 MG TABLET PO (09:28)
[2023-01-23] MEDS: amLODIPine BESYLATE 5 MG TABLET 10 MG PO (09:28)
[2023-01-23 12:06] LABS: Glucose Point of Care 175 mg/dl (65-105)
--- NOTE | 2023-01-23 16:47 | PM.DS ---
DS: Admitting Diagnosis Discharge Date 01/23/2023 Admitting Diagnosis Chest pain DS: Discharge Diagnosis Discharge Diagnosis (1) Chest pain: Code(s): R07.9 - Chest pain, unspecified Status: Acute (2) Type 2 diabetes mellitus with retinopathy: Qualifiers: Diabetes mellitus joint terminal attack controller insulin use: without joint terminal attack controller use Diabetic retinopathy severity: with unspecified retinopathy severity Diabetes mellitus macular edema: macular edema presence unspecified Laterality: unspecified laterality Qualified Code(s): E11.319 - Type 2 diabetes mellitus with unspecified diabetic retinopathy without macular edema Code(s): E11.319 - Type 2 diabetes mellitus with unspecified diabetic retinopathy without macular edema Status: Acute (3) Hypertension: Code(s): I10 - Essential (primary) hypertension Status: Acute (4) Obesity: Code(s): E66.9 - Obesity, unspecified Status: Acute DS: Summary Hospital Course Hospital Course: 82-year-old female with past medical history of obesity hypertension type 2 diabetes mellitus macular degeneration known occlusive coronary artery disease hypercholesterolemia presented with chest pain with past 4 days no worsening or relieving factors localized to the precordial area nonradiating. No accompanying symptoms with nausea vomiting lightheadedness syncope near syncope shortness of breath or cough. Chest x-ray with no acute cardiopulmonary abnormality EKG with nonspecific ST-T changes. Troponin negative ruling out ACS. Cardiology was consulted chest pain atypical likely musculoskeletal dobutamine stress test was done which was negative. Okay from cardiac standpoint to go home most likely chest pain is musculoskeletal she is advised to follow-up with PCP if persistent symptoms. Time Spent with Patient Time attestation: Total time spent providing and/or coordinating discharge services: 35 minutes Exam Narrative: GENERAL: Elderly, obese with BMI of 36.9, non-toxic, in no acute distress. HEAD: Normocephalic, atraumatic. NECK: Supple. No adenopathy, no masses. RESPIRATORY: Airway patent, respirations nonlabored. Clear to auscultation bilaterally, no rales, rhonchi, wheezing. CARDIOVASCULAR: Regular rhythm without murmurs, rubs, or gallops.? Radial pulses 2+ and equal bilaterally. ABDOMINAL: Soft, nontender, nondistended, no hepatosplenomegaly. Normoactive BS. MUSCULOSKELETAL: Moves all extremities. Strength/ROM intact without gross deformities.? No chest wall tenderness to palpation.? Trace pedal edema bilaterally, symmetric.? No calf tenderness. SKIN: Warm, dry, normal color. No rashes. NEURO: A&O X3. Speech clear. Cranial nerves II-XII grossly intact. PSYCHIATRIC: Appropriate mood and affect. Normal interaction. DS: Data Data Completed and Pending Labs on day of discharge: Labs from last 24 hours 01/23/23 01/23/23 01/22/23 11:37 08:25 22:32 Sodium Potassium Chloride Carbon Dioxide Anion Gap BUN Creatinine Estim Creat Clear Calc Estimated GFR Glucose POC Capillary Glucose 175 H 151 H Calcium Total Bilirubin AST ALT Alkaline Phosphatase Troponin I Cancelled Total Protein Albumin Lipase 01/22/23 01/22/23 01/22/23 22:04 19:34 16:39 Sodium 130 L Potassium 4.6 Chloride 99 Carbon Dioxide 21 L Anion Gap 10 BUN 17 Creatinine 0.70 Estim Creat Clear Calc Not Reportable Estimated GFR > 60 Glucose 143 H POC Capillary Glucose 255 H Calcium 9.1 Total Bilirubin 0.5 AST 28 ALT 25 Alkaline Phosphatase 83 Troponin I < 0.012 < 0.012 Total Protein 7.0 Albumin 4.3 Lipase 69 Imaging Radiologist's impression: ITS Impressions Chest X-Ray 01/22/23 15:56 IMPRESSION: 1. No acute cardiopulmonary abnormality. Discharge Plan Discharge Attending physician on discharge: Frank Wilhelm Consult
== END 2023-01-23 17:20 | disposition home or self-care (01) ==
LOC: ANHED 20:15 → ANHIMU 20:54
PROVIDERS: Emergency Medicine; Admitting Provider Internal Medicine; Emergency Provider Physician Assistant; PCP Family Medicine; Visit Provider Internal Medicine
DX: R07.9 Chest pain, unspecified (principal); E11.319 Type 2 diabetes mellitus with unspecified diabetic retinopathy without macular edema; H35.30 Unspecified macular degeneration; I10 Essential (primary) hypertension; K21.9 Gastro-esophageal reflux disease without esophagitis; K44.9 Diaphragmatic hernia without obstruction or gangrene; E87.1 Hypo-osmolality and hyponatremia; E11.65 Type 2 diabetes mellitus with hyperglycemia; E78.5 Hyperlipidemia, unspecified; R94.31 Abnormal electrocardiogram [ECG] [EKG]; E66.9 Obesity, unspecified; Z68.36 Body mass index [BMI] 36.0-36.9, adult; Z79.82 Long term (current) use of aspirin; Z79.84 Long term (current) use of oral hypoglycemic drugs; Z79.51 Long term (current) use of inhaled steroids; Z79.899 Other long term (current) drug therapy
CPT/HCPCS: 36415; 71046; 80053; 82948; 83690; 84484; 85025; 85610; 85730; 93005; 96372; 99285; A9270; G0378; J1250; J1650

== ENCOUNTER 2023-12-16 16:54 | Observation (INO) | payer MEDICARE, SELFPAY ==
--- NOTE | ~2023-12-16 | XR_ITS ---
EXAMINATION: XR chest 2V Exam Date/Time: 12/16/2023 17:14 CDT HISTORY: chest pain X this morning. Comparison: 01/22/2023. RESULT: Lines, tubes, and devices: None. Lungs and pleura: Clear. Cardiomediastinal silhouette: Stable. Other: No acute osseous or upper abdominal finding. IMPRESSION: No acute cardiopulmonary process. Reviewed, dictated and finalized at location K.
--- NOTE | 2023-12-16 16:55 | ECG_ITS ---
Test Date: 2023-12-16 17:05:46 Measurements Intervals [place] Rate: 93 P: 0 IA: 0 QRS: 219 QRSD: 102 T: 117 QT: 350 QTc: 437 Interpretive Statements ATRIAL FIBRILLATION LIMB LEAD REVERSAL CANNOT R/O SEPTAL INFARCT, AGE INDETERMINATE ABNORMAL ECG No previous ECG available for comparison Electronically Signed On 12-17-2023 07:29:12 CDT by Jaun Champion D.O.
[2023-12-16 17:20] LABS: Basophils Percent Auto 0.5 % (0.2-1.2); Eosinophils Absolute Auto 0.2 K/mm3 (0-0.3); Eosinophils Percent Auto 2.7 % (0-4.4); Hematocrit 40.8 % (37.0-47.0); Hemoglobin 13.8 g/dL (12.0-15.0); Immature Granulocyte Absolute 0.01 K/mm3 (0.00-0.031); Immature Granulocyte Percent A 0.1 % (0-0.5); Lymphocytes Absolute Auto 1.85 K/mm3 (0.9-3.2); Lymphocytes Percent Auto 21.9 % (18.3-44.2); Mean Corpuscular HGB Conc 33.8 g/dl (32-36); Mean Corpuscular Hemoglobin 30.6 pg (26-34); Mean Corpuscular Volume 90.5 fl (80-100); Mean Platelet Volume 9.3 fl (7.4-10.4); Monocytes Absolute Auto 0.7 K/mm3 (0.1-0.6); Monocytes Percent Auto 8.3 % (2.6-8.5); Neutrophils Absolute Auto 5.6 K/mm3 (1.3-6.7); Neutrophils Percent Auto 66.5 % (45.5-73.1); Platelet Count Result 311 k/mm3 (150-375); Red Blood Count 4.51 M/mm3 (4.2-5.4); Red Cell Distribution Width 13.1 % (11.5-14.5); White Blood Count 8.5 K/mm3 (4.5-10.0)
[2023-12-16 17:25] VITALS: BP 162/93; PULSE 103; RESP 18; TEMP 36.5; O2SAT 99
[2023-12-16 17:29] LABS: Prothrombin Time 13.3 Seconds (11.1-14.7)
[2023-12-16 17:30] LABS: Alanine Aminotransferase 23 U/L (6-35); Albumin Level 4.6 g/dL (3.5-5.1); Alkaline Phosphatase 93 U/L (38-126); Anion Gap 14 mmol/L (4-12); Aspartate Amino Transferase 26 U/L (14-36); Bilirubin,Total 0.7 mg/dL (0.2-1.3); Blood Urea Nitrogen 19 mg/dL (7-17); Calcium 9.7 mg/dL (8.4-10.2); Carbon Dioxide 24 mmol/L (22-30); Chloride 98 mmol/L (98-107); Estimated Glomerular Filt Rate 53; Glucose 148 mg/dL (65-110); Lipase 66 U/L (23-300); Partial Thromboplastin Time 25.4 Seconds (22.3-36.8); Potassium 4.4 mmol/L (3.4-5.0); Sodium 136 mmol/L (137-145)
[2023-12-16 17:41] LABS: Troponin I < 0.012 ng/mL (0.000-0.034)
[2023-12-16] MEDS: ASPIRIN 81 MG CHEWABLE TABLET 324 MG PO (19:31)
[2023-12-16] MEDS: dilTIAZem HCl INJ 25 MG/5 ML VIAL 10 MG IV PUSH (20:06)
--- NOTE | 2023-12-16 20:10 | ECG_ITS ---
Test Date: 2023-12-16 20:12:51 Measurements Intervals [place] Rate: 87 P: 0 [place]: 0 QRS: -42 QRSD: 100 T: 85 QT: 354 QTc: 427 Interpretive Statements ATRIAL FIBRILLATION LEFT AXIS DEVIATION INCOMPLETE RIGHT BUNDLE BRANCH BLOCK LEFT VENTRICULAR HYPERTROPHY WITH ST-T CHANGE CANNOT R/O SEPTAL INFARCT, AGE INDETERMINATE BASELINE ARTIFACT- I, II, III, AVR, AVL ABNORMAL ECG Compared to ECG 12/16/2023 17:05:46 NO SIGNIFICANT CHANGE Electronically Signed On 12-17-2023 07:31:37 CDT by Jaun Champion D.O.
--- NOTE | 2023-12-16 20:32 | ED.CHESTPAIN ---
HPI - Chest Pain General Chief Complaint: Chest Pain Stated Complaint: chest pain Time Seen by Provider: 12/16/23 18:58 Source: patient and family Mode of arrival: ambulatory History of Present Illness HPI narrative: 83-year-old young hypertension, hyperlipidemia, diabetes here with complaints of left-sided chest pain on and off since this morning. Patient states that she was recently started on glimepiride for her diabetes and she thinks that could be the cause of her pain. She denies any shortness of breath. No history of nausea vomiting. Pain is mostly in the left precordial area. Nonradiating MD complaint: chest pain Onset (ago): day(s) (1) Onset: during rest Related Data Home Medications Medication Instructions Recorded Confirmed omeprazole magnesium 20 mg 20 mg PO DAILY 04/15/19 11/19/23 tablet,delayed release (Prilosec OTC) Osteo Bi-Flex 1 cap PO BID 01/22/23 11/19/23 aspirin 81 mg chewable tablet 81 mg PO DAILY 01/22/23 11/19/23 cholecalciferol (vitamin D3) 25 25 mcg PO DAILY 01/22/23 11/19/23 mcg (1,000 unit) tablet (Vitamin D3) vit 1 cap PO BID 01/22/23 11/19/23 C,E,zinc,Vw-szjjl-7-lutein-zeaxanthin 250 mg-2.5 mg-0.5 mg capsule Allergies Allergy/AdvReac Type Severity Reaction Status Date / Time Iodinated Contrast Media Allergy Severe Itching Verified 12/16/23 16:54 lutein Allergy Unknown Nausea,Nausea Verified 12/16/23 16:54 and Vomiting amoxicillin [From Augmentin] Allergy Itching Verified 12/16/23 16:54 clavulanic acid Allergy Itching Verified 12/16/23 16:54 [From Augmentin] codeine AdvReac Severe Abdominal Verified 12/16/23 16:54 Pain folic acid AdvReac Mild Nausea and Verified 12/16/23 16:54 Vomiting hydrochlorothiazide AdvReac Mild Gastrointestinal Verified 12/16/23 16:54 Upset bumetanide AdvReac Unknown Nausea and Verified 12/16/23 16:54 Vomiting carvedilol AdvReac Unknown Nausea and Verified 12/16/23 16:54 Vomiting chlorthalidone AdvReac Unknown Nausea Verified 12/16/23 16:54 empagliflozin AdvReac Unknown UTI'S Verified 12/16/23 16:54 [From Jardiance] esomeprazole AdvReac Unknown Nausea and Verified 12/16/23 16:54 Vomiting estrogens, conjugated AdvReac Unknown Nausea and Verified 12/16/23 16:54 Vomiting fexofenadine AdvReac Unknown Nausea and Verified 12/16/23 16:54 Vomiting hydrocodone AdvReac Unknown Nausea and Verified 12/16/23 16:54 Vomiting indapamide AdvReac Unknown Nausea and Verified 12/16/23 16:54 Vomiting lansoprazole AdvReac Unknown Nausea and Verified 12/16/23 16:54 Vomiting lisinopril AdvReac Unknown Nausea and Verified 12/16/23 16:54 Vomiting medroxyprogesterone AdvReac Unknown Nausea and Verified 12/16/23 16:54 Vomiting Sulfa (Sulfonamide AdvReac Unknown Nausea and Verified 12/16/23 16:54 Antibiotics) Vomiting tramadol AdvReac Unknown Nausea and Verified 12/16/23 16:54 Vomiting triamterene AdvReac Unknown Nausea and Verified 12/16/23 16:54 Vomiting DARIFENACIN HYDROBROMIDE AdvReac Mild Nausea and Uncoded 12/16/23 16:54 Vomiting hctz AdvReac Mild dizzy Uncoded 12/16/23 16:54 LUTEIN AdvReac Mild Nausea and Uncoded 12/16/23 16:54 Vomiting MEDROXYPROGESTERONE ACETATE AdvReac Mild Nausea and Uncoded 12/16/23 16:54 Vomiting MULTIVITAMIN W-MINERALS AdvReac Mild Nausea and Uncoded 12/16/23 16:54 Vomiting SOLIFENACIN SUCCINATE AdvReac Mild Nausea and Uncoded 12/16/23 16:54 Vomiting LYCOPENE AdvReac Unknown Nausea and Uncoded 12/16/23 16:54 Vomiting Review of Systems Review of Systems: All systems reviewed & are unremarkable except as noted in HPI and below Constitutional: Constitutional: Reports no additional constitutional complaints Eyes: Eyes: Reports no additional eye complaints ENT: Reports system reviewed and no additional complaints, except as documented Cardiovascular: Cardiovascular: Reports as per HPI Respiratory: Respira
--- NOTE | 2023-12-16 20:34 | PM.IMHP ---
H&P: HPI History of Present Illness Date/Time: 12/16/23 20:34 Chief Complaint: chest pain Narrative: This is an 83 yo female with PMHx significant for HTN, T2DM. Patient presents to ED due to chest pain, denies any sob, cough, sputum production, fevers, rigors, chills, no lightheadedness, no palpitations, no pnd or orthopnea, no leg swelling, In ED patient was found to have A. fib. Has been placed in observation for further evaluation, management and treatment. EXAMINATION: XR chest 2V Exam Date/Time: 12/16/2023 17:14 CDT HISTORY: chest pain X this morning. Comparison: 01/22/2023. RESULT: Lines, tubes, and devices: None. Lungs and pleura: Clear. Cardiomediastinal silhouette: Stable. Other: No acute osseous or upper abdominal finding. IMPRESSION: No acute cardiopulmonary process. 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 Coronary artery disease involving [place] coronary artery of [place] heart Diabetic retinopathy Essential hypertension GERD (gastroesophageal reflux disease) Hiatal hernia Hyperlipidemia associated with type 2 diabetes mellitus Hypertensive heart disease Left hip pain Left knee pain Obesity Obesity Pure hypercholesterolemia Type 2 diabetes mellitus with retinopathy Surgical History Surgical History History of cardiac catheterization (10/20/18) No significant obstructive coronary disease noted History of section History of esophagogastroduodenoscopy (EGD) (~2013) Normal History of left hip replacement (07/2020) Status post cataract extraction of both eyes with insertion of intraocular lens Family History Family History Mother Family history of diabetes mellitus in first degree relative Heart attack Father Family history of coronary artery disease Tuberculosis Social History Social History Social History: The patient been for 50 years. 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 She has 1 son who is healthy. Code status: Full code Surrogate decision maker: Primary care physician: Dr. Mil Alejandre Smoking status: Never smoker Second hand tobacco smoke exposure: No Additional smoking assessment comments: DENIES ANY FORM OF TOBACCO USE Alcohol intake: never Substance use: never Substance use type: does not use Do You Feel Safe in your Home?: Yes Lack of Transportation: No Lack of Food: Never True Current Housing: I Have Housing Concerned About Future Housing: No Difficulty Paying Gas/Electric Bills: No Difficulty Paying for Meds: No Currently Unemployed: No Education: Decline to Answer Difficulty w/ Childcare or Family Care: No Living arrangements: with family Occupation/Education: retired Gender identity (if verbalized by the patient): Female Sexual Orientation (if Verbalized by the Patient): Straight or Heterosexual Spiritual care concerns: No Meds Home Medications and Allergies Home Medications Medication Instructions Recorded Confirmed Type omeprazole magnesium 20 mg 20 mg PO DAILY 04/15/19 12/16/23 History tablet,delayed release (Prilosec OTC) Osteo Bi-Flex 1 cap PO BID 01/22/23 12/16/23 History aspirin 81 mg chewable tablet 81 mg PO DAILY 01/22/23 12/16/23 History cholecalciferol (vitamin D3) 25 25 mcg PO DAILY 01/22/23 12/16/23 History mcg (1,000 unit) tablet (Vitamin D3) vit 1 cap PO BID 01/22/23 12/16/23 History C,E,zinc,Ab-okpqu-4-lutein-zeaxanthin 250 mg-2.5 mg-0.5 mg capsule metformin 500 mg tablet,extended 2,000 mg PO SARAH #360 tabs 10/0
[2023-12-16 20:41] VITALS: BP 142/90; PULSE 84; RESP 15; O2SAT 98
[2023-12-16 21:09] LABS: Troponin I < 0.012 ng/mL (0.000-0.034)
[2023-12-16 23:32] VITALS: PULSE 87
[2023-12-16 23:38] VITALS: BMI 38.9
[2023-12-16 23:39] VITALS: BP 157/95; PULSE 89; RESP 20; TEMP 36.1; O2SAT 99
--- NOTE | 2023-12-16 23:41 | ADMGEN ---
This patient, Liliya Bernstein, was admitted to Medical Room 348-01. Patient/family oriented to hospital policies and general routines including ID bracelet, bed and alarms, visiting hours, pain management, procedures, bathroom and other care routines, personal items, smoking policy, room service/diet, and visiting hours. Information on how to activate the Rapid Response Team has been discussed. Patient/Family are encouraged to report perceived risks to care and to ask questions if they do not understand what they are told or what they should do.
[2023-12-17] VITALS (7 sets, daily range): BP systolic 142; BP diastolic 74; PULSE 78–118; RESP 18; TEMP 36.6; O2SAT 96
--- NOTE | 2023-12-17 | ECHO_ITS ---
Patient Info Name: Liliya Bernstein Age: 83 years : 1940 Gender: Female Ht: 48 in Wt: 181 lbs BSA: 1.74 m2 HR: 80 bpm BP: 157 / 95 mmHg Heart Rhythm: Atrial Fibrillation Technical Quality: Fair Exam Date: 12/17/2023 9:24 AM Exam Location: Echo Lab Patient Status: Outpatient Admit Date: 12/17/2023 Staff Ordering Physician: Alex Schneider MD Electronics Warfare Technician: Gildardo Veloz RDCS Attending Provider: Alex Schneider MD Referring Physician: Jennie COELLO; Exam Type: CA echo dop color flow w con Study Info Indications - A- fib Complete two-dimensional, color flow and Doppler transthoracic echocardiogram is performed with contrast to opacify the left ventricle and to improve the deliniation of the left ventricle endocardial borders. Contrast/Agitated Saline Contrast/Ag. Saline: Definity Amount: 3.00 ml Summary 1. Left ventricular chamber dimension is normal. 2. Left ventricular systolic function is normal, estimated at 55-60%. 3. There is mildly increased left ventricular wall thickness. 4. Right ventricular systolic function is normal. 5. Left atrial chamber dimension is severely enlarged. 6. Right atrial chamber dimension is mildly enlarged. 7. There is mild mitral valve regurgitation. 8. There is mild tricuspid valve regurgitation. 9. There is trivial pericardial effusion. Left Ventricle Left ventricular chamber dimension is normal. Left ventricular systolic function is normal, estimated at 55-60%. There is mildly increased left ventricular wall thickness. Right Ventricle Right ventricular chamber dimension is normal. Right ventricular systolic function is normal. Left Atria Left atrial chamber dimension is severely enlarged. Right Atria Right atrial chamber dimension is mildly enlarged. Atrial Septum Intact interatrial septum visualized by color flow imaging. Aortic Valve The aortic valve is trileaflet. There is mild aortic valve sclerosis. There is no aortic valve stenosis. There is no aortic valve regurgitation. Pulmonic Valve The pulmonic valve is not well visualized. Mitral Valve There is mild mitral valve regurgitation. The mitral valve annulus is severely calcified. Tricuspid Valve There is mild tricuspid valve regurgitation. Pericardium/Pleural There is trivial pericardial effusion. Inferior Vena Cava Normal inferior vena cava with >50% collapse upon inspiration consistent with elevated right atrial pressure, 3 mmHg. Aorta The aortic root size at the sinus of Valsalva is normal. Left Ventricular Outflow Tract Name Value Normal LVOT 2D LVOT Diameter 1.81 cm LVOT Doppler LVOT Peak Gradient 3 mmHg LVOT Mean Gradient 2 mmHg LVOT VTI 23.08 cm LVOT VTI/AV VTI Ratio 1.10 LVOT Stroke Volume 59.41 ml LVOT CO 3.11 l/min LVOT CI 1.79 L/min/m2 Pulmonic Valve Name Value Normal
[2023-12-17 00:14] LABS: Glucose Point of Care 243 mg/dl (65-105)
[2023-12-17 00:19] LABS: Troponin I < 0.012 ng/mL (0.000-0.034)
[2023-12-17 05:46] LABS: Glucose Point of Care 155 mg/dl (65-105)
[2023-12-17] MEDS: ASPIRIN 81 MG CHEWABLE TABLET PO (08:19)
[2023-12-17] MEDS: amLODIPine BESYLATE 10 MG TABLET PO (08:20)
[2023-12-17] MEDS: METOPROLOL TARTRATE 50 MG TAB PO ×2 (08:20→12:30)
[2023-12-17] MEDS: PERFLUTREN LIPID MICROSPHERES 1.5 ML VIAL DILUTED TO 10 ML TOTAL VOLUME IV PUSH (09:45)
--- NOTE | 2023-12-17 10:17 | PM.CNCAR ---
Assessment and Plan Assessment and plan (1) Chest pain: Code(s): R07.9 - Chest pain, unspecified Status: Acute Assessment and Plan: Has reproducible chest wall tenderness that elicits the same pain she has been feeling, consistent with a musculoskeletal etiology. Troponins are negative. No additional cardiac testing needs to be done for this. Pain control as per primary team. (2) Atrial fibrillation with controlled ventricular rate: Code(s): I48.91 - Unspecified atrial fibrillation Status: Acute Assessment and Plan: New diagnosis for the patient. Will check TSH level. Echocardiogram done this morning, read pending. Patient is rate controlled on tele for the most part, occasional elevated heart rates. Will increase her home Metoprolol dose from 50mg BID to 100mg BID. Anticoagulation for stroke risk reduction indicated. Discussed anticoagulation with the patient, including risks and benefits. Patient is agreeable. Will start Xarelto 20mg once daily. 7 day monitor at time of discharge to assess burden of atrial fibrillation and rate control. Order already placed. As we are starting NOAC, okay to stop taking ASA 81mg once daily. Will arrange outpatient follow up in our office. [facility] management of atrial fibrillation with rate control strategy vs rhythm control strategy to be determined as outpatient. (3) Hyperlipidemia associated with type 2 diabetes mellitus: Code(s): E11.69 - Type 2 diabetes mellitus with other specified complication; E78.5 - Hyperlipidemia, unspecified Status: Acute Assessment and Plan: Not on statin at home. Given her diabetes, consider high intensity statin if able to tolerate it. (4) Type 2 diabetes mellitus with hyperglycemia, without long-term current use of insulin: Code(s): E11.65 - Type 2 diabetes mellitus with hyperglycemia Status: Acute Assessment and Plan: Management as per primary team. (5) Hypertension: Code(s): I10 - Essential (primary) hypertension Status: Acute Assessment and Plan: Increasing Metoprolol for AFIB, continue other home antihypertensives. Plan Okay to discharge home today. Will arrange for outpatient follow up in our office. Recommendations and plan discussed with Hospitalist. History of Present Illness History of Present Illness Consult date/time: 12/17/23 10:17 Requesting physician: Alex Schneider MD Consult reason: chest pain and atrial fibrillation Reason For Visit: New onset Atrial fibrillation, Chest pain Narrative: We are consulted for chest pain, new diagnosis of atrial fibrillation. This is an 83 year old female with hypertension, hyperlipidemia, diabetes mellitus, obesity who presented with chest pain. Chest pain is left-sided, comes and goes, not associated with exertion. Workup in the ED showed rate controlled atrial fibrillation, which is a new diagnosis for the patient. Troponins are negative. She is otherwise feeling well this morning. CXR negative. Cardiac cath in 2019 showed angiographically normal coronary arteries. She follows with Dr. Nation on a PRN basis. 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
--- NOTE | 2023-12-17 10:42 | PM.DS ---
DS: Admitting Diagnosis Discharge Date December 17, 2023 Admitting Diagnosis Chest pain DS: Discharge Diagnosis Discharge Diagnosis (1) Chest pain: Code(s): R07.9 - Chest pain, unspecified Status: Acute (2) GERD (gastroesophageal reflux disease): Code(s): K21.9 - Gastro-esophageal reflux disease without esophagitis Status: Acute (3) Atrial fibrillation with controlled ventricular rate: Code(s): I48.91 - Unspecified atrial fibrillation Status: Acute (4) Obesity: Code(s): E66.9 - Obesity, unspecified Status: Acute DS: Summary Hospital Course Hospital Course: 83-year-old female with PMH obesity, hypertension, hyperlipidemia, [id number] diabetes mellitus. She follows up with Dr. Kris Nation. She is accompanied by her and presents to [facility] complaining of left-sided chest pain. She described it as sharp. It comes and goes and is not mixed so she had with exertion. Patient admitted on 12/15 for further workup of chest pain. EKG without acute ischemia. Troponins negative. Chest x-ray without acute cardiopulmonary abnormality. Cardiac catheterization in 2019 showed angiographically normal coronary arteries. Cardiology is consulted. Patient found to be in AFib with with controlled rate. 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 q.day, losartan 50 mg p.o. q.day, metoprolol 50 mg p.o. b.i.d.. Her amlodipine is continued, losartan discontinued, overall increased to 100 mg p.o. b.i.d.. Patient also started on Xarelto 20 mg p.o. q.day. her rate remained mostly controlled and her noncardiac chest pain resolved. Therefore, she is stable for discharge on 12/16 back to home with her . A 7 day threat monitoring analyst has been ordered and she will follow-up with Dr. Nation.. Aspirin discontinued in the setting of Xarelto being instituted. TSH 1.220 Surface echocardiogram obtained and pending. To follow-up with cardiology. Adverse effects, risk and benefits of medications discussed which she understood and agreed to the plan above as well. Patient was full code. Time Spent with Patient Time attestation: Total time spent providing and/or coordinating discharge services: Exam Const: General: comfortable and no acute distress Other: Obese. Eyes: Pupils: Equal, round and reactive pupils present Neck: Neck: supple Resp: Effort & Inspection: normal respiratory effort Auscultation: clear to auscultation bilaterally Cardio: Rate: regular rate Rhythm: abnormal rhythm Heart sounds: no gallops, no murmurs and no rubs GI: GI Palp: Yes Soft to palpation and No Tenderness to palpation present (GI) Extrem: General: no edema DS: Data Data Completed and Pending Labs on day of discharge: Labs from last 24 hours 12/17/23 12/17/23 12/17/23 09:56 05:38 00:10 WBC RBC Hgb Hct MCV MCH MCHC RDW Plt Count MPV Immature Gran % (Auto) Neut % (Auto) Lymph % (Auto) [place] % (Auto) Eos % (Auto) Baso % (Auto) Lymph # (Auto) [place] # (Auto) Eos # (Auto) Baso # (Auto) Abs Immat Gran (auto) Absolute Neuts (auto) Absolute Nucleated RBC Nucleated RBC % PT INR APTT Sodium Potassium Chloride Carbon Dioxide Anion Gap BUN Creatinine Estim Creat Clear Calc Estimated GFR Glucose POC Capillary Glucose 155 H 243 H Calcium Total Bilirubin AST ALT Alkaline Phosphatase Troponin I Total Protein Albumin Lipase TSH Pending 12/16/23 12/16/23 12/16/23 23:42 20:35 17:13 WBC 8.5 RBC 4.51 Hgb 13.8 Hct 40.8 MCV 90.5 MCH 30.6 MCHC 33.8 RDW 13.1 Plt Count 311 MPV 9.3 Immature Gran % (Auto) 0.1 Neut % (Auto) 66.5 Lymph % (Auto) 21.9 [place] % (Auto) 8.3 Eos % (Auto) 2.7 Baso % (Auto) 0.5 Lymph # (Auto) 1.85 [place] # (Auto) 0.7 H E
--- NOTE | 2023-12-17 11:18 | IVDEFINITY ---
Prior to administration of IV Definity the patient was educated on the risks and benefits of the imaging enhancing agent including potential adverse side effects. The patient verbalized understanding. Allergies were verified. No exclusion criteria were identified and at least one of the following inclusion criteria were met: 1) physician request, 2) patient technically difficult to image (per the [place] [employer] guidelines of two or more segments not discernable within the apical view), or 3) questionable left ventricular function. ?
[2023-12-17 12:01] LABS: Glucose Point of Care 218 mg/dl (65-105)
[2023-12-17] MEDS: RIVAROXABAN 20 MG TABLET PO (12:30)
== END 2023-12-17 13:00 | disposition home or self-care (01) ==
LOC: ANHED 20:41 → ANH3MED 12-17 10:41
PROVIDERS: Internal Medicine; Admitting Provider Internal Medicine; Emergency Provider Family Medicine; PCP Family Medicine; Visit Provider General Practice
DX: I48.91 Unspecified atrial fibrillation (principal); E11.65 Type 2 diabetes mellitus with hyperglycemia; E11.319 Type 2 diabetes mellitus with unspecified diabetic retinopathy without macular edema; I25.10 Atherosclerotic heart disease of native coronary artery without angina pectoris; I11.9 Hypertensive heart disease without heart failure; I08.1 Rheumatic disorders of both mitral and tricuspid valves; K21.9 Gastro-esophageal reflux disease without esophagitis; E78.00 Pure hypercholesterolemia, unspecified; Z79.82 Long term (current) use of aspirin; Z79.84 Long term (current) use of oral hypoglycemic drugs; Z79.51 Long term (current) use of inhaled steroids; E66.9 Obesity, unspecified; Z68.39 Body mass index [BMI] 39.0-39.9, adult
CPT/HCPCS: 36415; 71046; 80053; 82948; 83690; 84443; 84484; 85025; 85610; 85730; 93005; 96374; 96375; 99285; A9270; C8929; G0378; Q9957